=== PATIENT | male | born 1940 | race Caucasian/White ===

== ENCOUNTER → 2017-10-19 11:56 | Outpatient (CLI) | payer MEDICARE, SELFPAY ==
[2017-10-19 13:26] LABS: PSA,Total - Annual Screen 2.36 ng/mL (0.00-4.00)
== END ==
PROVIDERS: Family Provider Family Medicine; PCP Family Medicine; Visit Provider Urology
DX: Z12.5 Encounter for screening for malignant neoplasm of prostate (principal)
CPT/HCPCS: 36415; 84153; G0103

== ENCOUNTER → 2017-10-21 11:00 | Outpatient (CLI) | payer MEDICARE, SELFPAY ==
--- NOTE | 2017-10-21 11:02 | US_ITS ---
STUDY: RENAL ULTRASOUND - COMPLETE REASON FOR EXAM: Male, 76 years old. Microhematuria. TECHNIQUE: Ultrasound evaluation of the kidneys was performed with real-time and static alvarado-scale imaging. COMPARISON: None. FINDINGS: RIGHT KIDNEY: Normal location of the right kidney, which is normal in size. The right kidney measures 12.2 cm x 4.6 cm x 5.9 cm. There is a normal cortex of the right kidney. The renal cortex measures 1.9 cm. There is no right renal mass or cyst. There are no right renal calculi. There is no right hydronephrosis. DISTAL RIGHT URETER: There is non-visualization of the distal right ureter. There is no demonstrated right ureterovesical junction calculus. There is no demonstrated right ureteral jet. LEFT KIDNEY: Normal location of the left kidney, which is normal in size. The left kidney measures 12.0 cm x 4.7 cm x 5.8 cm. There is a normal cortex of the left kidney. The renal cortex measures 1.6 cm. There is no left renal mass or cyst. There are no left renal calculi. There is no left hydronephrosis. DISTAL LEFT URETER: There is non-visualization of the distal left ureter. There is no demonstrated left ureterovesical junction calculus. There is no demonstrated left ureteral jet. BLADDER: The distended urinary bladder has a volume of 71 ml. There is a normal wall thickness of the distended urinary bladder. There is no demonstrated mass within the urinary bladder. There are no demonstrated bladder calculi. Prostate volume measures 87.7 cc. US/Kidney and Bladder IMPRESSION: Normal ultrasound of the kidneys and urinary bladder. Electronically Signed: Kevan Melgoza MD at 12:25 EST Tel [phone], Service support ,
== END ==
PROVIDERS: Family Provider Family Medicine; PCP Family Medicine; Visit Provider Urology
DX: N40.0 Benign prostatic hyperplasia without lower urinary tract symptoms (principal); R31.29 Other microscopic hematuria
CPT/HCPCS: 76770

== ENCOUNTER → 2017-11-02 17:10 | Outpatient (CLI) | payer MEDICARE, SELFPAY ==
--- NOTE | 2017-11-02 17:13 | CT_ITS ---
STUDY: CT ABDOMEN AND PELVIS WITH CONTRAST REASON FOR EXAM: Male, 77 years old. RIGHT SIDED ABDOMINAL PAIN WRAPPING AROUND TO BACK RADIATION DOSAGE (If Supplied By Facility): CTDIvol = ( 17.02 ) mGy, DLP = ( 1030.21 ) mGycm TECHNIQUE: Transaxial images were obtained from the dome of the diaphragm to the symphysis pubis with oral contrast. 100 ml of Isovue 300 contrast was administered. Sagittal and coronal images were reconstructed. Individualized dose optimization techniques were used for this CT. COMPARISON: 08.27.15 FINDINGS: Degenerative findings of the hips. Loss of intervertebral disc height at L5-S1. Vacuum disc phenomenon at L5-S1. The visualized lung bases are unremarkable. The visualized portions of the heart are within normal limits. Normal liver. There are multiple gallstones. Normal spleen. Normal pancreas. Normal bilateral adrenal glands. Normal right kidney. Normal left kidney. Normal visualized stomach. Normal small intestine. Stool throughout the colon. There is non-visualization of the appendix. There are calcifications of the abdominal aorta and vascular structures. This is consistent for atherosclerotic disease. There is no abdominal aortic aneurysm. Normal inferior vena cava. Subcentimeter mesenteric lymph nodes. Normal urinary bladder. There is enlargement of the prostate gland. There are bilateral inguinal hernias containing fat. There is no bowel involvement. There is no incarceration. There is no findings suggesting that this is causing a bowel obstruction. There are degenerative changes of the osseous structures. There are bilateral pars articularis defects at L5-S1. There is a Grade 1 anterolisthesis of L5 on S1. CT/Abdomen/Pelvis WITH Contrast IMPRESSION: Cholelithiasis. Constipation Other findings as above. Electronically Signed: Cruzito Curry MD at 18:31 EST , Service support ,
[2017-11-02 17:21] LABS: CREATININE FINGERSTICK 0.8 mg/dL (0.70-1.30); EGFR FINGERSTICK > 60.0000 mL/min (>60)
== END ==
PROVIDERS: Family Provider Family Medicine; PCP Family Medicine; Visit Provider Family Medicine
DX: R10.9 Unspecified abdominal pain (principal)
CPT/HCPCS: 74177; Q9967

== ENCOUNTER → 2018-10-26 06:44 | Outpatient (CLI) | payer MEDICARE, SELFPAY ==
--- NOTE | 2018-10-26 09:28 | STRESSREP ---
Stress Test Report Pharmacologic myocardial perfusion stress test. 78-year-old male with a history of dyspnea on exertion. Medications: Lisinopril, amlodipine, omeprazole, nadolol. Stress protocol: Resting EKG demonstrates normal sinus rhythm with a rate of 60 bpm normal intervals are noted resting blood pressure 122/78 mmHg. 0.4 mg of regadenoson was infused per usual protocol followed by rapid intravenous saline flush injection continuous EKG monitoring was performed. The maximum heart rate attained was 81 bpm which was 56% maximum predicted heart rate the maximum workload was 1 metabolic equivalent. At rest there were no ST or T wave changes noted suggest abnormal flow reserve at peak infusion nonspecific ST-T wave changes were noted we did not meet the criteria for abnormal flow reserve. Myocardial perfusion protocol per 14.3 mCi of technetium 99m sestamibi was injected at rest. 0.4 mg of regadenoson was infused per usual protocol peak infusion 44.1 mCi of technetium 99m sestamibi was injected stress images were obtained stress and rest images were reconstructed and compared in the short axis vertical and horizontal long axis. Gated images were also obtained next Perfusion SPECT analysis: Review of the stress images demonstrate normal uptake of tracer noted in all areas of the myocardium. The resting images similarly demonstrate normal uptake of tracer noted in all areas of the myocardium. No areas of reversibility are noted suggest ischemia. No previous infarct is noted. Gated SPECT analysis: The gated ejection fraction is noted to be 66%. Conclusion: Normal pharmacologic myocardial perfusion stress test. Preserved ejection fraction.
== END ==
DX: R06.09 Other forms of dyspnea (principal)
CPT/HCPCS: 78452; 93017; A9500; A4216; J2785

== ENCOUNTER 2019-02-19 23:56 | Emergency (ER) | payer MEDICARE, SELFPAY ==
[2019-02-19 23:57] VITALS: BP 165/82; PULSE 63; RESP 16; TEMP 36.6; O2SAT 99
[2019-02-20 00:04] VITALS: RESP 16
--- NOTE | 2019-02-20 01:06 | ED.VIS.GEN ---
History of Present Illness Chief Complaint: Lower Extremity Injury Informant: Patient Narrative: Stated he has had persistent swelling in his right lower extremity since his right hip was replaced 2 weeks ago. He is concerned he might have a blood clot. He states that his swelling is from his hip down to his feet. He is noticed his foot has become more swollen. He has had some postoperative pain but is getting better. No significant new pains. He is noticed a little bit of redness in his whole leg and is concerned he might have a new blood clot. He has had one remotely in his left lower extremity. He is only on a baby aspirin postop. No fevers or chills or other symptoms. Comes in for further evaluation of possible blood clot. No chest pain or shortness of breath. Past Medical History - Allergies and Home Meds Allergies/Adverse Reactions: Allergies tetracycline [Tetracycline] Allergy (Verified 02/20/19 00:04) Hives tramadol Allergy (Verified 02/20/19 00:07) Hives Primary Care Physician: Zoie Whitt DO [Primary Care Provider] - Prior records reviewed: Yes Past Medical History: - - Reviewed Surgical History: - - Viewed Smoking Status: Never smoker Alcohol: None Drugs: None Review of Systems General: Denies: Chills, Fever, Sweats Eyes: Denies: Visual changes - bilaterally, Diplopia ENT: Denies: Rhinorrhea, Sore throat Cardiovascular: Denies: Chest pain, Palpitations Respiratory: Denies: Dyspnea, Cough, Dyspnea on exertion Gastrointestinal: Denies: Abdominal pain, Nausea, Vomiting, Diarrhea, Melena, Hematochezia Genitourinary: Denies: Dysuria, Hematuria, Frequency Musculoskeletal: Reports: Swelling, Extremity Pain, - - See HPI. Denies: Back pain Skin: Denies: Rash, Wounds Neurological: Denies: Headache, Weakness, Numbness Physical Exam Vital Signs/Narrative: Vital Signs Temp Pulse Resp BP Pulse Ox 02/20/19 00:04 16 02/19/19 23:57 97.9 F 63 16 165/82 H 99 General: Well nourished, Well developed, No Acute Distress Head: Normocephalic, Atraumatic Eyes: Perrl, EOMI ENT: Moist mucous membranes, No rhinorrhea Neck: Supple, Nontender Cardiovascular: Regular rate, Regular rhythm, No murmurs Respiratory: No distress, CTA bilaterally, Chest nontender Abdomen: Soft, Nontender, Nondistended, Normal bowel sounds Back: Nontender, Normal Inspection Extremities: Edema, - - Has mild diffuse edema of his whole right lower extremity. His incision looks clean clean dry and intact. He has very mild warmth and redness. This is subtle. No cellulitis. Normal pulses to his feet.. Negative for: Nontender, No edema Skin: Normal color, No rash Neurological: Alert, Oriented x3, Cranial nerves II-XII grossly intact, Normal Strength, Normal Sensation Psychological: Normal affect, Normal Mood Diagnostic/Tx/Re-eval - Medical Decision Making I am concerned patient might have a recurrent DVT postop. I told the patient we can hold him in the ER and do a DVT scan in the morning. He would like to be discharged and follow-up tomorrow for DVT scan. I will order this. I discussed benefits and risk of using Lovenox. Due to the fact that he has a moderate risk for DVT we elected to do at 1 dose of Lovenox. He will follow-up and return if he does have a positive clot. I do not think he is has a PE at this time. I do not think he has infection. ED Disposition - Plan for ED Patient: Disposition: Home or Assisted Living Diagnosis: Swelling of lower extremity Instructions: Understanding Deep Vein Thrombosis Referrals: Zoie Whitt DO [Primary Care Provider] -
[2019-02-20] MEDS: Enoxaparin 100 MG/ML Syringe SC (01:19)
[2019-02-20 01:20] VITALS: BP 161/78; PULSE 60; RESP 16; O2SAT 98
== END 2019-02-20 01:28 | disposition home or self-care (01) ==
PROVIDERS: Emergency Provider Emergency Medicine
DX: M79.89 Other specified soft tissue disorders (principal); Z86.718 Personal history of other venous thrombosis and embolism; Z96.641 Presence of right artificial hip joint; Z79.82 Long term (current) use of aspirin; Z79.899 Other long term (current) drug therapy
CPT/HCPCS: 96372; 99282

== ENCOUNTER → 2019-02-20 | Outpatient (CLI) | payer MEDICARE, SELFPAY ==
--- NOTE | 2019-02-20 14:25 | VDLE_ITS ---
Reason For Study: Swelling RIGHT GSV is normal. CFV is compressible, spontaneous, phasic, competent and demonstrates normal augmentation. FV is compressible, spontaneous, phasic, competent and demonstrates normal augmentation. POP V is compressible, spontaneous, phasic, competent and demonstrates normal augmentation. T/P Trunk is compressible. PTV is compressible. RT PerV is compressible. Procedure Exam performed in department. A preliminary report was called and/or faxed to Dr. Whitt. Interpretation Summary Deep veins of the right lower extremity are patent and compressible segmentally. There is no evidence of right lower extremity deep vein thrombosis. Valvular competence appears intact within the proximal deep venous system on the right . The right greater saphenous vein appears patent and compressible segmentally. Ordering Physician: Prakash Aldana Referring Physician: Zoie Whitt Performed By: Katelyn Kumar, CARMENZA, RVT
== END | disposition home or self-care (01) ==
LOC: CVS 14:23
PROVIDERS: Referring Provider Emergency Medicine; Visit Provider Emergency Medicine
DX: M79.89 Other specified soft tissue disorders (principal)
CPT/HCPCS: 93971

== ENCOUNTER → 2022-04-14 | Outpatient (CLI) | payer MEDICARE, SELFPAY ==
[2022-04-14 12:21] LABS: Hematocrit 42.1 % (40-54); Mean Corp Hgb Conc 33.3 g/dL (32-36); Mean Corpuscular Hgb 29.4 pg (27.0-32.0); Mean Corpuscular Volume 88.4 fL (80-94); Mean Platelet Vol. 10.8 fl (6.2-12.0); Platelet Count 181 K/mm3 (150-450); RBC Distribution Width CV 14.1 % (11.6-14.6); RBC Distribution Width SD 45.1 fl (35.1-43.9); Red Blood Count 4.76 M/mm3 (4.6-6.2); White Blood Count 7.2 K/mm3 (4.4-11.0)
[2022-04-14 12:57] LABS: AST(SGOT) 22 U/L (15-37); Alanine Aminotransfer ALT/SGPT 28 U/L (16-61); Albumin, Serum 3.8 g/dL (3.2-5.0); Alkaline Phosphatase 83 U/L (45-117); Anion Gap 5 (5-15); BUN 21 mg/dL (7-18); BUN/Creat Ratio 20.2 RATIO (10-20); Calcium,Total 9.3 mg/dL (8.5-10.1); Chloride 110 mmol/L (98-107); Cholesterol 182 mg/dL (200); Creatinine, Serum 1.04 mg/dL (0.70-1.30); EST Glomerular Filtration Rate 73 mL/min (>60); Est Glom Filt Rate - Afr Amer 88 mL/min (>60); Glucose 147 mg/dL (74-106); High Density Lipoprotein 43 mg/dL; PSA,Total - Annual Screen 2.39 ng/mL (0.00-4.00); Protein, Total 7.8 g/dL (6.4-8.2); Sodium Level 140 mmol/L (136-145); Thyroid Stim Hormone (TSH) 1.44 uIU/mL (0.358-3.74); Triglycerides 283 mg/dL; Very Low Density Lipoprotein 57 mg/dL (5-40)
[2022-04-14 13:09] LABS: Hemoglobin A1c 7.2 % (3.8-5.6)
== END | disposition home or self-care (01) ==
LOC: LAB 12:06
DX: E11.9 Type 2 diabetes mellitus without complications (principal); Z12.5 Encounter for screening for malignant neoplasm of prostate; I10 Essential (primary) hypertension
CPT/HCPCS: 36415; 80053; 80061; 83036; 84153; 84443; 85027; G0103

== ENCOUNTER → 2022-09-25 | Outpatient (CLI) | payer MEDICARE, SELFPAY ==
[2022-09-25 16:16] LABS: Hematocrit 41.3 % (40-54); Hemoglobin 13.6 g/dL (13.0-16.5); Mean Corp Hgb Conc 32.9 g/dL (32-36); Mean Corpuscular Hgb 29.6 pg (27.0-32.0); Mean Corpuscular Volume 89.8 fL (80-94); Mean Platelet Vol. 10.9 fl (6.2-12.0); Platelet Count 178 K/mm3 (150-450); RBC Distribution Width CV 13.7 % (11.6-14.6); RBC Distribution Width SD 44.4 fl (35.1-43.9)
[2022-09-25 17:10] LABS: ALB/GLOB Ratio 1.1 RATIO (0.9-2.4); AST(SGOT) 18 U/L (15-37); Alanine Aminotransfer ALT/SGPT 31 U/L (16-61); Albumin, Serum 3.8 g/dL (3.2-5.0); Alkaline Phosphatase 82 U/L (45-117); Anion Gap 4 (5-15); BUN 17 mg/dL (7-18); BUN/Creat Ratio 16.2 RATIO (10-20); Calcium,Total 9.4 mg/dL (8.5-10.1); Chloride 107 mmol/L (98-107); Cholesterol 201 mg/dL (200); Creatinine, Serum 1.05 mg/dL (0.70-1.30); EST Glomerular Filtration Rate 72 mL/min (>60); Est Glom Filt Rate - Afr Amer 87 mL/min (>60); Globulin 3.6 g/dL (2.2-4.2); Glucose 142 mg/dL (74-106); High Density Lipoprotein 42 mg/dL; Potassium 4.4 mmol/L (3.5-5.1); Protein, Total 7.4 g/dL (6.4-8.2); Sodium Level 138 mmol/L (136-145); Thyroid Stim Hormone (TSH) 1.64 uIU/mL (0.358-3.74); Triglycerides 453 mg/dL
== END | disposition home or self-care (01) ==
DX: Z79.899 Other long term (current) drug therapy (principal); E11.9 Type 2 diabetes mellitus without complications; E78.1 Pure hyperglyceridemia; I10 Essential (primary) hypertension; K21.9 Gastro-esophageal reflux disease without esophagitis
CPT/HCPCS: 36415; 80053; 80061; 84443; 85027

== ENCOUNTER → 2023-05-17 | Outpatient (CLI) | payer MEDICARE, SELFPAY ==
[2023-05-17 10:24] LABS: Hematocrit 40.2 % (40-54); Hemoglobin 13.3 g/dL (13.0-16.5); Mean Corp Hgb Conc 33.1 g/dL (32-36); Mean Corpuscular Hgb 29.8 pg (27.0-32.0); Mean Corpuscular Volume 89.9 fL (80-94); Platelet Count 177 K/mm3 (150-450); RBC Distribution Width CV 13.3 % (11.6-14.6); RBC Distribution Width SD 43.9 fl (35.1-43.9); Red Blood Count 4.47 M/mm3 (4.6-6.2); White Blood Count 7.7 K/mm3 (4.4-11.0)
[2023-05-17 10:42] LABS: AST(SGOT) 14 U/L (15-37); Alanine Aminotransfer ALT/SGPT 23 U/L (16-61); Albumin, Serum 3.7 g/dL (3.2-5.0); Alkaline Phosphatase 78 U/L (45-117); Anion Gap 6 (5-15); BUN 19 mg/dL (7-18); Calcium,Total 9.1 mg/dL (8.5-10.1); Chloride 107 mmol/L (98-107); Cholesterol 145 mg/dL (200); EST Glomerular Filtration Rate 86 mL/min (>60); Est Glom Filt Rate - Afr Amer 104 mL/min (>60); Ferritin 106 ng/mL (26-388); Free T3 2.3 pg/mL (2.18-3.98); Globulin 3.6 g/dL (2.2-4.2); Glucose 153 mg/dL (74-106); High Density Lipoprotein 46 mg/dL; Iron 81 ug/dL (65-175); Potassium 4.1 mmol/L (3.5-5.1); Protein, Total 7.3 g/dL (6.4-8.2); Sodium Level 140 mmol/L (136-145); Triglycerides 314 mg/dL; Very Low Density Lipoprotein 63 mg/dL (5-40)
[2023-05-17 12:40] LABS: Vitamin B12 279 pg/mL (211-911); Vitamin D,25 Hydroxy 27.5 ng/mL
== END | disposition home or self-care (01) ==
LOC: LAB 09:32
DX: E11.9 Type 2 diabetes mellitus without complications (principal); I10 Essential (primary) hypertension; E78.1 Pure hyperglyceridemia; K21.9 Gastro-esophageal reflux disease without esophagitis; R53.83 Other fatigue
CPT/HCPCS: 36415; 80053; 80061; 82306; 82607; 82728; 83540; 84403; 84439; 84443; 84481; 85027

== ENCOUNTER → 2023-07-28 | Outpatient (CLI) | payer MEDICARE, SELFPAY ==
[2023-07-28 10:22] LABS: Hematocrit 40.7 % (40-54); Hemoglobin 13.6 g/dL (13.0-16.5); Mean Corp Hgb Conc 33.4 g/dL (32-36); Mean Corpuscular Hgb 30.1 pg (27.0-32.0); Mean Platelet Vol. 11.3 fl (6.2-12.0); Platelet Count 177 K/mm3 (150-450); RBC Distribution Width CV 13.5 % (11.6-14.6); RBC Distribution Width SD 44.5 fl (35.1-43.9); Red Blood Count 4.52 M/mm3 (4.6-6.2)
[2023-07-28 10:44] LABS: Hemoglobin A1c 7.2 % (3.8-5.6)
[2023-07-28 11:11] LABS: Vitamin D,25 Hydroxy 32.7 ng/mL
[2023-07-28 11:19] LABS: AST(SGOT) 17 U/L (15-37); Alanine Aminotransfer ALT/SGPT 22 U/L (16-61); Albumin, Serum 3.6 g/dL (3.2-5.0); Alkaline Phosphatase 76 U/L (45-117); Anion Gap 4 (5-15); BUN 17 mg/dL (7-18); BUN/Creat Ratio 18.7 RATIO (10-20); Calcium,Total 9.1 mg/dL (8.5-10.1); Chloride 109 mmol/L (98-107); Cholesterol 131 mg/dL (200); Creatinine, Serum 0.91 mg/dL (0.70-1.30); EST Glomerular Filtration Rate 85 mL/min (>60); Est Glom Filt Rate - Afr Amer 103 mL/min (>60); Globulin 3.5 g/dL (2.2-4.2); Glucose 155 mg/dL (74-106); High Density Lipoprotein 48 mg/dL; PSA,Total - Annual Screen 1.88 ng/mL (0.00-4.00); Potassium 3.9 mmol/L (3.5-5.1); Protein, Total 7.1 g/dL (6.4-8.2); Sodium Level 138 mmol/L (136-145); Thyroid Stim Hormone (TSH) 2.24 uIU/mL (0.358-3.74); Triglycerides 205 mg/dL; Very Low Density Lipoprotein 41 mg/dL (5-40)
== END | disposition home or self-care (01) ==
LOC: LAB 09:20
DX: E11.9 Type 2 diabetes mellitus without complications (principal); I10 Essential (primary) hypertension; E78.1 Pure hyperglyceridemia; Z12.5 Encounter for screening for malignant neoplasm of prostate; E55.9 Vitamin D deficiency, unspecified
CPT/HCPCS: 36415; 80053; 80061; 82306; 83036; 84153; 84403; 84443; 85027; G0103

== ENCOUNTER 2023-08-15 21:27 | Emergency (ER) | payer MEDICARE, SELFPAY ==
[2023-08-15 21:29] VITALS: BP 168/86; PULSE 61; RESP 18; TEMP 36.2; O2SAT 99; BMI 26.2
--- NOTE | 2023-08-15 21:38 | EDS_ITS ---
HPI History of Present Illness Chief Complaint: Complaint Informant: patient and spouse/S.O. Narrative Narrative: Patient presents with hematuria. Patient states that he had a bit of blood in his urine this morning. This evening it was more red. No real clots. No fevers chills. He might have a little bit of discomfort but really no pain. It sounds like he does have a history of BPH. He is on finasteride, tamsulosin or possibly even both. He sees Dr. Elias. He states he does go frequently. He will have to wait a while before he can urinate. His stream is much softer than it used to be. He will commonly have to urinate shortly after going. He thinks this has been getting a little worse recently. But he feels like he empties fully. No flank pain. No history of kidney stones. PFSH PFSH Home Medications finasteride 5 mg tablet 5 mg PO DAILY 10/18/13 [History Last Taken Unknown] lisinopril 20 mg tablet 20 mg PO DAILY 09/14/14 [History Last Taken Unknown] nadolol 80 mg tablet (Corgard) 80 mg PO DAILY 09/14/14 [History Last Taken Unknown] omeprazole 20 mg capsule,delayed release 20 mg PO DAILY 09/14/14 [History Last Taken Unknown] amlodipine 5 mg tablet 5 mg PO DAILY 02/20/19 [History Last Taken Unknown] aspirin 81 mg tablet,delayed release (Aspir-) 81 mg PO DAILY 02/20/19 [History Last Taken Unknown] tamsulosin 0.4 mg capsule 0.4 mg PO DAILY 02/20/19 [History Last Taken Unknown] cephalexin 500 mg capsule 500 mg PO Q12 #14 CAPSULES 08/15/23 [Rx Last Taken Unknown] Allergy/AdvReac Type Severity Reaction Status Date / Time fenofibrate [From Tricor] Allergy Rash Verified 08/15/23 21:31 hydrochlorothiazide Allergy Rash Verified 08/15/23 21:31 niacin Allergy Rash Verified 08/15/23 21:31 tetracycline [Tetracycline] Allergy Hives Verified 08/15/23 21:28 tramadol Allergy Hives Verified 08/15/23 21:28 ciprofloxacin [From Cipro] AdvReac Nausea/Vom/ Verified 08/15/23 21:31 Diarrhea Social History Smoking Status: Never smoker ROS ROS ED Constitutional Constitutional ED: Denies chills or fever(s) ENT ENT ED: Denies rhinorrhea Cardiovascular Cardiovascular: Denies chest pain or palpitations Respiratory/Chest Respiratory/Chest: Denies cough or dyspnea Gastrointestinal Gastrointestinal: Denies diarrhea, nausea or vomiting Genitourinary Genitourinary ED: Reports hematuria and urinary frequency; Denies dysuria Musculoskeletal Musculoskeletal: Denies back pain Integumentary Denies rash Neurologic Neurologic: Denies paresthesias or weakness Endocrine Endocrinology: Denies polydipsia or polyuria Hematologic/Lymphatic Hematologic/Lymphatic: Denies easy bleeding or easy bruising Allergic/Immunologic Allergic/Immunologic ED: Denies urticaria EXAM Physical Exam Narrative Exam Narrative: General: Patient sitting comfortably in the bed no acute distress HEENT shows no pallor petechiae. Mucous membranes are moist. Neck is supple. Heart is regular. No murmur. Lungs are clear. Saturations are normal at 99% on room air showing no hypoxia. Abdomen is actually soft nontender. I cannot definitely say I feel an enlarged bladder. No notable suprapubic tenderness but he does state he feels a little pressure. Back shows no flank/CVA tenderness. No rashes. Extremities show no notable edema. Skin does not show pallor petechiae or purpura. Const Vital Signs: 08/15/23 21:29 Temperature 97.1 F L Temperature Source Temporal Pulse Rate 61 Respiratory Rate 18 Blood Pressure 168/86 H Blood Pressure Mean 113 Pulse Ox 99 MDM MDM MDM Narrative Medical decision making narrative: Patient CBC shows normal white count hemoglobin and platelets. Patient's electrolytes showed mild elevation in BUN but normal creatinine. He does have high glucose at 290. We did not have the information initially but I find out he is on metformin. But he only takes 500 mg once a day. He is not sure if he took it at His urine came back showing a large number of red cells and glucose. But no sign of infection. Grossly this year urine was very red-tinged but I saw no clots. I discussed options with the patient. As long as he is urinating and not having obstruction I think he can go home. Postvoid residual was 210 cc. This is somewhat high but he is still passing urine well. We are doing a CAT scan since he does not have significant distention to cause mucosal tears and bleeding. As long as we do not see significant abnormalities that needs acute treatment I still think he can follow-up with his urologist. CAT scan is pending at this time. With his hematuria without any clear cause at this time, we will consider placing on antibiotics until he sees his urologist and I will send urine for a culture. Lab Data Attestation: I reviewed the patient's lab results. Labs: Laboratory Results - last 24 hr 08/15/23 08/15/23 21:52 21:58 WBC 8.2 RBC 4.73 Hgb 13.9 Hct 42.2 MCV 89.2 MCH 29.4 MCHC 32.9 RDW Std Deviation 43.2 RDW Coeff of Gaye 13.2 Plt Count 191 MPV 10.5 Immature Gran % (Auto) 0.600 Neut % (Auto) 50.3 Lymph % (Auto) 34.5 [place] % (Auto) 8.6 Eos % (Auto) 5.0 Baso % (Auto) 1.0 Absolute Neuts (auto) 4.1 Absolute Lymphs (auto) 2.82 Nucleated RBC % 0 Sodium 139 Potassium 3.9 Chloride 107 Carbon Dioxide 29.0 Anion Gap 3 L BUN 21 H Creatinine 1.01 Estim Creat Clear Calc 61.09 Est GFR (MDRD) Af Amer 91 Est GFR (MDRD) Non-Af 75 BUN/Creatinine Ratio 20.8 H Glucose 290 H Calcium 9.9 Urine Color Red Urine Clarity Turbid Urine pH 7.0 Ur Specific Elizabeth 1.015 Urine Protein 500 H Urine Glucose (UA) 1000 H Urine Ketones 5 H Urine Occult Blood 250 H Urine Nitrite Negative Urine Bilirubin Negative Urine Urobilinogen Normal Ur Leukocyte Esterase 100 H Urine RBC > 100 SEEN Urine WBC 0 SEEN Ur Squamous Epith Cells 0 SEEN Urine Bacteria 0 SEEN Urine Mucus 0 SEEN Discharge Plan Triage Chief Complaint: Complaint ED Provider: Nickolas Keene Dx/Rx/DC Orders Clinical Impression: Hematuria, Hyperglycemia Instructions: ED Hematuria Prescriptions: New cephalexin [cephalexin] 500 mg capsule 500 mg PO Q12 Qty: 14 0RF No Action finasteride 5 MG tablet 5 mg PO DAILY nadolol [Corgard] 80 MG tablet 80 mg PO DAILY lisinopril 20 MG tablet 20 mg PO DAILY omeprazole 20 MG capsule 20 mg PO DAILY amlodipine 5 MG tablet 5 mg PO DAILY aspirin [Aspir-81] 81 MG tablet,delayed release (DR/EC) 81 mg PO DAILY tamsulosin 0.4 MG capsule 0.4 mg PO DAILY Primary Care Provider: Zoie Whitt Referrals: Marques Elias MD [Med Staff - Active Staff] - As soon as possible (Call in the morning for an appointment as soon as possible.) Zoie Whitt, [Primary Care Provider] - Disposition Disposition: Home, Self Care
[2023-08-15 22:00] LABS: Absolute Lymphocyte Count 2.82 X10^3/uL (0.83-4.51); Absolute Neutrophil Count 4.1 X10^3/uL (2.0-7.7); Basophil# 0.08 X10^3/uL; Eosinophil# 0.41 X10^3/uL; Hematocrit 42.2 % (40-54); Hemoglobin 13.9 g/dL (13.0-16.5); Lymphocyte # 2.82 X10^3/ul (0.83-4.51); Lymphocyte % 34.5 % (19-41); Mean Corp Hgb Conc 32.9 g/dL (32-36); Mean Corpuscular Hgb 29.4 pg (27.0-32.0); Mean Corpuscular Volume 89.2 fL (80-94); Mean Platelet Vol. 10.5 fl (6.2-12.0); Monocyte% 8.6 % (0-10); NRBC Flagged by Analyzer 0 % (0-5); Neutrophil # 4.12 X10^3/uL (2.7-7.7); Neutrophil % 50.3 % (47-70); Platelet Count 191 K/mm3 (150-450); RBC Distribution Width CV 13.2 % (11.6-14.6); RBC Distribution Width SD 43.2 fl (35.1-43.9); Red Blood Count 4.73 M/mm3 (4.6-6.2); White Blood Count 8.2 K/mm3 (4.4-11.0)
[2023-08-15 22:06] LABS: Bacteria 0 SEEN /hpf (None Seen); Mucous, Urine 0 SEEN /hpf (<or=2+); Squamous Epithelial Cells - UA 0 SEEN /hpf (0-5); White Blood Cells 0 SEEN /hpf (0-5)
[2023-08-15 22:07] LABS: Color, Urine Red (Yellow); Glucose, Dipstick 1000 mg/dl (Normal); Ketone-Dipstick 5 mg/dl (Negative); Leukocyte Esterase-Dipstick 100 /ul (Negative); Nitrite-Dipstick Negative (Negative); Occult Blood-Urine 250 /ul (Negative); Protein-Dipstick 500 mg/dl (Negative); Specific Gravity, Urine 1.015 (1.002-1.030); Urine Bilirubin Dipstick Negative (Negative); Urine Clarity Turbid (Clear); Urine Urobilinogen Normal (Normal)
[2023-08-15 22:16] LABS: Red Blood Cells-Urine > 100 SEEN /hpf (0-5)
[2023-08-15 22:18] LABS: Anion Gap 3 (5-15); BUN 21 mg/dL (7-18); BUN/Creat Ratio 20.8 RATIO (10-20); Calcium,Total 9.9 mg/dL (8.5-10.1); Chloride 107 mmol/L (98-107); Creatinine, Serum 1.01 mg/dL (0.70-1.30); EST Glomerular Filtration Rate 75 mL/min (>60); Est Glom Filt Rate - Afr Amer 91 mL/min (>60); Estimated Creatinine Clearance 61.09 ml/min; Glucose 290 mg/dL (74-106); Potassium 3.9 mmol/L (3.5-5.1); Sodium Level 139 mmol/L (136-145)
[2023-08-15] MEDS: 0.9% Normal Saline (1000mL) 1,000 ML 999 ML IV (23:10)
--- NOTE | 2023-08-15 23:33 | CT_ITS ---
EXAM: CT ABDOMEN AND PELVIS WITH INTRAVENOUS CONTRAST CLINICAL INDICATION: pain, hematuria TECHNIQUE: Helically acquired images were obtained of the abdomen and pelvis with intravenous contrast. This CT exam was performed using one or more of the following dose reduction techniques: automated exposure control, adjustment of the mA and/or kV according to patient size, and/or use of iterative reconstruction technique. CONTRAST: IV 100mL Isovue-370 RADIATION DOSE: CTDIvol = 18.5 mGy, DLP = 1917.21 mGy-cm. COMPARISON: November 02, 2017 there was a small stone in the mid right kidney at that time. FINDINGS: LOWER THORAX: Unremarkable. Lung bases are clear. No cardiomegaly. No significant pericardial effusion. ABDOMEN: LIVER: Unremarkable. Homogeneous. No focal mass. GALLBLADDER AND BILE DUCTS: Gallbladder filled with or partially contracted around stones, it is only 2.8 cm AP. No gallbladder distention or wall edema. No intra- or extrahepatic biliary ductal dilation. PANCREAS: Unremarkable. No focal cystic or solid mass. SPLEEN: Unremarkable. Normal size without focal cystic or solid mass. ADRENALS: Unremarkable. No nodules. KIDNEYS AND URETERS: There is mild right hydroureteronephrosis to the level of the bladder. Multiple hypodense foci in the bladder appear to be numerous small stones including suspected stone of 2.9 mm in the distal right UVJ. These are new from prior exam. And there is mildly dense dependent irregular material presumably due to hematuria dependently in the bladder. The same small nonobstructing 2.7 mm stone is noted in the right kidney compared to 2018. Right renal pelvis 2.8 cm, mid right ureter 1.2 cm. Normal renal enhancement. Small left renal cyst again noted. There is contrast excretion and roughly 50% opacification of the right renal pelvis on delayed phase exam at 4 minutes delay. There is contrast throughout the left ureter. Normal renal size and position. STOMACH AND BOWEL: Moderate stool in most of the colon including most of the rectosigmoid. Minimal stool in the rectum. Moderate fluid and mild gas in the stomach. No dilated small bowel loops. No focal inflammatory change. PELVIS: APPENDIX: No evidence of acute appendicitis. BLADDER: Mildly thick-walled urinary bladder despite moderate distention. Suggestion of a small hypodense filling defect surrounded by hyperdense material in the urinary bladder. REPRODUCTIVE: Prostatomegaly, 6.6 cm transverse. ABDOMEN and PELVIS: INTRAPERITONEAL SPACE: Unremarkable. No ascites or other fluid collection. No free air. BONES/JOINTS: Degenerative spine changes including mild grade 1 anterolisthesis of L5 with respect to S1 with bilateral L5 pars defects and marked disc space narrowing, similar to 2018. No rain spinal stenosis. Right hip prosthesis. No suspicious lytic or blastic abnormality. SOFT TISSUES: Mild fat-containing inguinal hernias. Small but multiple inguinal lymph nodes. VASCULATURE: Moderate atherosclerotic calcification of aortoiliac vessels and calcifications at the origins of great vessels without evidence of high-grade arterial stenosis. Abdominal aorta is non-dilated. LYMPH NODES: See above. CT/Abdomen/Pelvis W IV Cont ONLY IMPRESSION: 1. Mild-moderate right hydroureteronephrosis. Mixed density complex material layering dependently in the urinary bladder, possibly including stone at the distal right UVJ, and multiple additional small stones or thick irregular very hyperdense calcific material in the urinary bladder. With superimposed left hyperdense typical hematuria in the bladder. Complex bladder contents, unenhanced exam was not performed. Cannot exclude underlying neoplasm.There was no calcific material in the bladder in 2018. Consider cystoscopy. 2. Marked prostatomegaly with impression on the bladder base. 3. Similar solitary nonobstructing right intrarenal stone compared to 2018. 4. Moderate stool in most of the colon. 5. Cholelithiasis, gallstones filling the partially contracted gallbladder. No inflammatory changes of the gallbladder. 6. Mild fat-containing inguinal hernias, stable. Stable minimally prominent inguinal nodes. Electronically Signed: Samantha Calderon MD at 1:45 EST ,
[2023-08-16] MEDS: Cephalexin 250 MG Capsule 500 MG PO (02:29)
== END 2023-08-16 02:35 | disposition home or self-care (01) ==
PROVIDERS: Emergency Provider Emergency Medicine; Visit Provider Emergency Medicine
DX: R31.9 Hematuria, unspecified (principal); R73.9 Hyperglycemia, unspecified; N13.30 Unspecified hydronephrosis; N21.0 Calculus in bladder; N20.1 Calculus of ureter
CPT/HCPCS: 74177; 80048; 81001; 85025; 87086; 96360; 96361; 99283; J7030; Q9967; A4216

== ENCOUNTER → 2023-08-23 | Outpatient (CLI) | payer MEDICARE, SELFPAY ==
[2023-08-23 10:52] LABS: PSA,Total- Diagnostic 1.53 ng/mL (0.0-4.0)
== END | disposition home or self-care (01) ==
LOC: LAB 09:51
PROVIDERS: Referring Provider Urology; Visit Provider Urology
DX: N40.1 Benign prostatic hyperplasia with lower urinary tract symptoms (principal)
CPT/HCPCS: 36415; 84153

== ENCOUNTER 2023-09-24 12:15 | Observation (INO) | payer MEDICARE, SELFPAY ==
--- NOTE | 2023-09-14 10:04 | EKG12_ITS ---
Test Reason : PRE OP Blood Pressure : / mmHG Vent. Rate : 063 BPM Atrial Rate : 063 BPM P-R Int : 164 ms QRS Dur : 094 ms QT Int : 398 ms P-R-T Axes : 027 -17 053 degrees QTc Int : 407 ms Normal sinus rhythm Normal ECG Confirmed by RIANA RAMIREZ, ELTON ([id number]), photo editor ABAD CHANEY ([id number]) on 09/15/2023 5:57:05 AM Referred By: Marques Elias Confirmed By:ELOTN MAYERS MD
[2023-09-24] VITALS (13 sets, daily range): BP systolic 115–141; BP diastolic 60–88; PULSE 16–72; RESP 16–18; TEMP 36.1–36.6; O2SAT 92–100; BMI 27.2; BMI 27.6
--- NOTE | 2023-09-24 | IMM_PTH ---
PATHOLOGY RESULTS PATIENT: ANITA TREJO LOC: [facility] U#:[id number] AGE/SX: 82/M ROOM: [id number] RE09/24/[address]: Dr. Marques Elias MD : [id number] BED: 1 DIS: 09/26/2023 SPEC #: [id number] RECD: 09/28/23 12:23 STATUS: ROLANDO REChanel #: [id number] ANGELICA: 09/24/23 00:[address]: Marques Elias DEPT: IMMUNOHISTOCHEMISTRY RECD BY: Yoanna Anders ENTERED: 09/28/23 12:25 SP TYPE: IMMUNO OTHR DR: Dr. Zoie Whitt, DO Tissues: Urinary bladder, NOS Procedures: CD31 (add) CK5-6 (add) CK7 (add) KI-67 (add) P53 (add) 34BE12 (add) FACTOR VIII (add) GATA3 (add) P40 (add) PSAP (add) CK7 (initial) S-100 (add) PHYSICIAN & [address] [address] SPECIMEN INFORMATION: Tissue Source: Prostate/bladder Clinical Info: Bladder tumor Specimen Number: [id number] #8 & 9 CPT code: 16624, 55985 x23 METHODOLOGY: Deparaffinized sections of prefer/formalin-fixed tissue or PAP/DQ stained slides are incubated with monoclonal/polyclonal antibodies/oligonucleotide probes. Localization is made via biotin free immunoperoxidase method. Appropriate controls are performed and reacted as expected. Results on target cell population are indicated in the following table: RESULTS: ANTIBODY / CLONE RESULT Block 8 GATA3 (L50-823) positive CK7 (OV-TL12/30) positive CK20 (KS20.8) positive 34BE12 (34BE12) positive CD31 (LASHAY/70A) negative Factor VIII (R Ag) negative S-100 (4C4.9) negative PSAP (PASE/4LJ) negative CK5-6 (D5 & 1684) positive P40 (BC28) positive P53 (DO-7) positive, intermediate pattern Ki-67 (30-9) positive, moderate Block 9 GATA3 (L50-823) positive CK7 (OV-TL12/30) positive CK20 (KS20.8) positive 34BE12 (34BE12) positive CD31 (LASHAY/70A) negative Factor VIII (R Ag) negative S-100 (4C4.9) negative PSAP (PASE/4LJ) negative CK5-6 (D5 & 1684) positive P40 (BC28) positive P53 (DO-7) positive, intermediate pattern Ki-67 (30-9) positive, moderate These tests were developed and their performance characteristics determined by [facility]. They may not have been cleared or approved by the U.S. Food and Drug Administration. The FDA has determined that such clearance or approval is not necessary. The above immunohistochemical/dualISH markers are ordered and reviewed by the Pathologist. 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 AM:anastasiia 09/29/2023
--- OUTSIDE RECORDS SUMMARY | 2023-09-24 11:37 | XMS RPT_ITS | CCD ---
Author Name Unknown Address [address] [place] [address] Organization [facility] Care Team Providers Care Cloth Tester Name Role Phone HutchinsonJaclynKarlene N Unavailable Jasper Karlene N Unavailable NATI, YAMILEX A. Unavailable Unavailable NATI, YAMILEX A. Unavailable Unavailable NATI, YAMILEX A. Unavailable Unavailable NATI, YAMILEX A. Unavailable Unavailable NATI, YAMILEX A. Unavailable Unavailable NATI, YAMILEX A. Unavailable Unavailable Eliu Hutchinsonssalphonse Montilla Unavailable ADAN ALVAREZ, DR CORRALES Primary Care Physician ([phone] ) No, Physician Primary Care Provider Unavailabl e LUBNA, PHYSICIAN Primary Care Unavailable ANN MARIE CORONADO Attending Unavailable [place], Physician Primary Care Provider Unavailbhavesh ARELLANO DO, DR CORRALES Primary Care Physician ([phone] ADAN ALVAREZ, DR. CORRALES Primary Care Unavailbhavesh ARELLANO DO, DR. CORRALES Attending Unavailbhavesh ARELLANO DO, DR. CORRALES Attending Unavailabl keesha ARELLANO DO, DR. CORRALES Primary Care Unavailbhavesh MONTENEGRO APRN-FISHING VESSEL DECKHAND, THERESE Attending Layne ARELLANO DO, DR. CORRALES Primary Care Unavailabl e ADAN ALVAREZ, DR. CORRALES Attending Unavailabl e ADAN ALVAREZ, DR. CORRALES Primary Care Unavailabl e Allergies Allergy Classification Reported Allergen(s) Allergy Type Date of Onset Reaction(s) Facility (6 sources) bee pollen; Translations: [POLLEN] allergy to substance 4 [facility] Work Phone: (8 sources) fenofibrate; Translations: [Fenofibrate] drug allergy 5 [facility] Work Phone: (12 sources) hydroCHLOROthia zide; Translations: [Hydrochlorothi azide] drug allergy 5 [facility] Work Phone: (12 sources) niacin; Translations: [Niacin] drug allergy 5 [facility] Work Phone: (6 sources) tetracycline; Translations: [TETRACYCLINE] drug allergy 4 [facility] Work Phone: (12 sources) traMADol; Translations: [Tramadol] drug allergy 5 [facility] Work Phone: (9 sources) Ciprofloxacin; Translations: [ciprofloxacin] Drug Allergy 1 [facility] (4 sources) Fenofibrate; Translations: [FENOFIBRATE MICRONIZED] Drug Allergy 6 [facility] (4 sources) Pollen; Translations: [POLLEN EXTRACTS] Propensity to adverse reactions to drug 1 [facility] (1 source) Amoxicillin / Clavulanate; Translations: [amoxicillin-cl avulanate] Drug Allergy 2 Nausea (finding) [facility] Medications Current Medications Medication Drug Class(es) Dates Sig (Normalized) Sig (Original) amLODIPine 5 mg oral tablet (11 sources) Dihydropyridine Calcium Channel Kyree Start: 07-01-2021 take 1 tablet by mouth once daily amLODIPine (NORVASC) 5 MG tablet amlodipine 5 mg tablet TAKE 1 TABLET BY MOUTH ONCE DAILY 0 07/01/2021 Active Completed/Discontinued Medications Medication Drug Class(es) Dates Sig (Normalized) Sig (Original) SOD PICOSULFATE-MAG OX-CIT ACD (3 sources) Calculi Dissolution Agent, Anti-coagulant Start: 04-22-2015 End: 04-23-2015 PREPOPIK 10-3.5-12 MG-GM-GM PACK use as per instructions SOD PICOSULFATE-MAG OX-CIT ACD [id number] Mahnaz Gilmore Problems Active Problems Problem Classification Problem Date Documented Da te Episodic/Chronic Abdominal hernia (5 sources) Hiatal hernia 03-16-2019 Episodic Calculus of urinary tract (5 sources) Kidney stone 04-01-2021 Episodic Diabetes mellitus with complications (1 source) Type 2 diabetes mellitus; Translations: [Type 2 diabetes mellitus with other diabetic ophthalmic complication] Chronic Diabetes mellitus without complication (8 sources) Diabetes mellitus; Translations: [Type 2 diabetes mellitus without complications] Onset: 1 03-07-2020 Chronic Disorders of lipid metabolism (9 sources) Hypertriglyceridemia; Translations: [Mixed hyperlipidemia] Onset: 1 03-16-2019 Chronic Diverticulosis and diverticulitis (5 sources) Diverticulosis of colon 03-16-2019 Chronic Esophageal disorders (5 sources) Gastroesophageal reflux disease 03-16-2019 Chronic Essential hypertension (9 sources) Hypertensive disorder; Translations: [Essential hypertension] Onset: 1 03-16-2019 Chronic Hyperplasia of prostate (5 sources) Benign prostatic hyperplasia 03-16-2019 Chronic Melanomas of skin (6 sources) Malignant melanoma; 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] 07-04-2021 Chronic Miscellaneous mental health disorders (5 sources) Chronic insomnia 03-16-2019 Chronic Osteoarthritis (7 sources) Osteoarthritis of hip; Translations: [Osteoarthritis] Onset: 7 04-01-2017 Chronic Other acquired deformities (3 sources) Contracture, unspecified hand; Translations: [Contracture, unspecified hand] Onset: 6 04-09-2016 Chronic Other congenital anomalies (2 sources) Spondylolisthesis; Translations: [Spondylolisthesis, site unspecified] Onset: 7 04-01-2017 Chronic Other ear and sense organ disorders (2 sources) Sensorineural hearing loss, bilateral; Translations: [Sensorineural hearing loss, bilateral] Onset: 2 Chronic Other ear and sense organ disorders (1 source) Sensorineural hearing loss, bilateral; Translations: [Sensorineural hearing loss, bilateral] Chronic Other ear and sense organ disorders (2 sources) Impacted cerumen, bilateral; Translations: [Impacted cerumen, bilateral] Onset: 2 Episodic Other ear and sense organ disorders (2 sources) Impacted cerumen of bilateral ears; Translations: [Impacted cerumen, bilateral] Episodic Other gastrointestinal disorders (5 sources) Mass of stomach 04-01-2021 Episodic Other liver diseases (5 sources) Steatosis of liver 03-16-2019 Chronic Other nervous system disorders (3 sources) Ulnar nerve entrapment; Translations: [Lesion of ulnar nerve, unspecified upper limb] Onset: 6 04-09-2016 Chronic Other non-epithelial cancer of skin (3 sources) Basal cell carcinoma of skin of left ear and external auricular canal; Translations: [Basal cell carcinoma of conchal bowl of ear] Onset: 2 Episodic Other non-traumatic joint disorders (3 sources) Arthritis of acromioclavicular joint; Translations: [Unspecified osteoarthritis, unspecified site] Onset: 4 07-05-2014 Chronic Otitis media and related conditions (5 sources) Tympanosclerosis, left ear; Translations: [Tympanosclerosis of left middle ear] Onset: 2 Episodic Phlebitis; thrombophlebitis and thromboembolism (5 sources) H/O: thrombosis 03-16-2019 Episodic Residual codes; unclassified (5 sources) Sleep apnea 03-16-2019 Chronic Unclassified (3 sources) Acute venous embolism and thrombosis of deep vessels of lower extremity; Translations: [Acute venous embolism and thrombosis of deep vessels of lower extremity] Onset: 5 09-26-2014 Unclassified (1 source) Unknown / UNK(Unknown) Onset: 7 Past or Other Problems Problem Classification Problem Date Documented Da te Episodic/Chronic Fracture of lower limb (3 sources) Closed bimalleolar fracture; Translations: [Displaced bimalleolar fracture of unspecified lower leg] 10-11-2013 Episodic Other connective tissue disease (7 sources) Impingement syndrome of shoulder region; Translations: [Shoulder pain] Onset: 06-26-2014 06-27-2014 Episodic Other connective tissue disease (7 sources) Hand pain; Translations: [Rotator cuff syndrome] Onset: 06-26-2014 04-09-2016 Episodic Other connective tissue disease (1 source) Rotator cuff syndrome; Translations: [Unspecified rotator cuff tear or rupture of unspecified shoulder, not specified as traumatic] Onset: 06-26-2014 06-27-2014 Episodic Other connective tissue disease (1 source) Biceps tendinitis; Translations: [Bicipital tenosynovitis] Onset: 06-26-2014 06-26-2014 Episodic Other inflammatory condition of skin (2 sources) Vasculitis limited to the skin, unspecified; Translations: [VASCULITIS LIMITED TO THE SKIN, UNSPECIFIED] Onset: 03-18-2017 Episodic Other non-traumatic joint disorders (1 source) Ankle pain; Translations: [Pain in unspecified ankle and joints of unspecified foot] 11-03-2013 Episodic Other non-traumatic joint disorders (1 source) Shoulder pain; Translations: [Pain in right shoulder] Onset: 06-26-2014 06-26-2014 Episodic Other screening for suspected conditions (not mental disorders or infectious disease) (3 sources) Encounter for screening for malignant neoplasm of colon; Translations: [Encounter for screening for malignant neoplasm of colon] Onset: 09-26-2014 09-26-2014 Episodic Spondylosis; intervertebral disc disorders; other back problems (3 sources) Low back pain; Translations: [Low back pain] Onset: 04-01-2017 04-01-2017 Episodic Unclassified (1 source) BACK/HIP PAIN Onset: 03-11-2017 Results Test Name Value Interpretation Reference Range Facil ity Vital Signs Date Time Vital Sign Value Performing Clinician Facility 06-14-2023 15:28-0400 Body height 177.8 cm Ann Marie Coronado MD Work Phone: [facility] 06-14-2023 15:28-0400 Body mass index (BMI) [Ratio] 27.84 kg/m2 Ann Marie Coronado MD Work Phone: [facility] 06-14-2023 15:28-0400 Body temperature 98.2 [degF] Ann Marie Coronado MD Work Phone: [facility] 06-14-2023 15:28-0400 Body weight 88 kg Ann Marie Coronado MD Work Phone: [facility] 09-01-2022 08:55-0500 Body mass index (BMI) [Ratio] 27.94 kg/m2 Ann Marie Coronado MD Work Phone: [facility] 09-01-2022 08:55-0500 Body weight 88.31 kg Ann Marie Coronado MD Work Phone: [facility] 09-01-2022 08:55-0500 Diastolic blood pressure 76 mm[Hg] Ann Marie Coronado MD Work Phone: [facility] 09-01-2022 08:55-0500 Heart rate 61 /min Ann Marie Coronado MD Work Phone: [facility] 09-01-2022 08:55-0500 SaO2% (BldA) [Mass fraction] 98 % Ann Marie Coronado MD Work Phone: [facility] 09-01-2022 08:55-0500 Systolic blood pressure 137 mm[Hg] Ann Marie Coronado MD Work Phone: [facility] 08-04-2021 13:46-0500 Body height 177.8 cm Sarah Fuller CNP Work Phone: [facility] 08-04-2021 13:46-0500 Body mass index (BMI) [Ratio] 27.84 kg/m2 Sarah Fuller CNP Work Phone: [facility] 08-04-2021 13:46-0500 Body temperature 98.2 [degF] Sarah Fuller CNP Work Phone: [facility] 08-04-2021 13:46-0500 Body weight 88 kg Sarah Fuller CNP Work Phone: [facility] 08-04-2021 13:46-0500 Diastolic blood pressure 78 mm[Hg] Sarah Fuller FISH[employer] DECKHAND Work Phone: [facility] 08-04-2021 13:46-0500 Heart rate 54 /min Sarah Fuller [employer] DECKHAND Work Phone: [facility] 08-04-2021 13:46-0500 Respiratory rate 17 /min Sarah Fuller CNP Work Phone: [facility] 08-04-2021 13:46-0500 SaO2% (BldA) [Mass fraction] 95 % Sarah Fuller [employer] DECKHAND Work Phone: [facility] 08-04-2021 13:46-0500 Systolic blood pressure 138 mm[Hg] Sarah Fuller [employer] DECKHAND Work Phone: [facility] 04-22-2015 15:21-0400 BMI (Body Mass Index) 28.45 kg/m2 [facility] Work Phone: 04-22-2015 15:21-0400 Body Temperature 96.8 [degF] [facility] Work Phone: 04-22-2015 15:21-0400 BP Diastolic 89 mm[Hg] [facility] Work Phone: 04-22-2015 15:21-0400 BP Systolic 169 mm[Hg] [facility] Work Phone: 04-22-2015 15:21-0400 BSA (Body Surface Area) 2.18 m2 [facility] Work Phone: 04-22-2015 15:21-0400 Pulse (Heart Rate) 60 /min [facility] Work Phone: 04-22-2015 15:21-0400 Respiratory Rate 16 /min [facility] Work Phone: 04-22-2015 15:21-0400 Weight 95.17 kg [facility] Work Phone: 10-17-2013 11:22-0500 Height 182.88 cm [facility] Work Phone: Encounters Encounter Date Encounter Type Care Provider Facility Start: 06-14-2023 End: 06-14-2023 Office outpatient visit 10 minutes Ann Marie Coronado MD Work Phone: [facility] Procedures Date Procedure Procedure Detail Performing Clinician Start: 08-04-2021 Gluc bld gluc mntr d ev cleared fda spec home use Sarah Fuller [employer] Work Phone: Start: 08-04-2021 Ecg routine ecg w/le ast 12 lds i&r only Sarah Ramirezchay [employer]KHAND Work Phone: Start: 01-18-2019 Antibody screen Plan of Treatment Date Care Activity Detail Author Start: 06-02-2023 End: 06-02-2023 Patient encounter procedure 06/02/2023 Office Visit Otolaryngology Ann Marie Coronado MD [address] [place] [address] [facility] Start: 05-07-2023 COVID-19 Vaccine ( season) COVID-19 Vaccine ( season) [facility] Start: 05-07-2022 Influenza vaccination Sequential Influenza Vaccine (#1) [facility] Start: 03-06-2022 COVID-19 Vaccine (5 - Booster for Moderna series) COVID-19 Vaccine (5 - Booster for Moderna series) [facility] Start: 04-29-2021 COVID-19 Vaccine (3 - Booster for Moderna series) COVID-19 Vaccine (3 - Booster for Moderna series) [facility] Start: 07-21-2019 Hemoglobin A1c measurement A1C [facility] Start: 04-07-2017 End: 04-07-2017 Physical Therapy General [facility], [address] [place] [address], [id number] [facility] Work Phone: Start: 04-01-2017 End: 04-01-2017 X-ray exam l-s spine bending X-Ray, Spine, Lumbar, complete with bending views [facility] Work Phone: Start: 04-09-2016 End: 04-09-2016 X-ray exam of hand X-Ray, Hand [facility] Work Phone: Start: 04-22-2015 End: 04-22-2015 Diagnostic colonoscopy Colonoscopy [facility] Work Phone: Start: 09-26-2014 End: 09-26-2014 Chest x-ray 4/> views Chest XRAY [facility] Work Phone: Start: 09-26-2014 End: 09-26-2014 Contrast x-ray exam of colon Barium Enema [facility] Work Phone: Start: 06-26-2014 End: 06-26-2014 Mri joint upr extrem w/o dye MRI Joint Upper Extremity [facility] Work Phone: Start: 06-26-2014 End: 06-26-2014 X-ray exam of shoulder X-Ray, Shoulder [facility] Work Phone: Start: 2006 Fall risk assessment Falls Risk Assessment [facility] Start: 2006 Pneumococcal Vaccine: Age 65+ (1 of 1 - PPSV23) Pneumococcal Vaccine: Age 65+ (1 of 1 - PPSV23) [facility] Start: 1991 Administration of herpes zoster vaccine Zoster Vaccines (1 of 2) [facility] Start: 1960 Administration of herpes zoster vaccine Zoster Vaccines (1 of 2) [facility] Start: 1959 Hepatitis C screening Hepatitis C Screening [facility] Start: 1953 Depression screening using PHQ-9 (Patient Health Questionnaire 9) score Depression Screening (PHQ-2/9) [facility] Start: 1951 Diabetic foot examination Foot Exam [facility] Start: 1951 Glaucoma screening [facility] Start: 1951 Urine screening for protein Urine Microalbumin [facility] Start: 1947 Pneumococcal Vaccine: Age 65+ (1 - PCV) Pneumococcal Vaccine: Age 65+ (1 - PCV) [facility] Start: 1944 History and physical examination, annual for health maintenance Wellness Visit [facility] Start: 1941 Tetanus vaccination Tetanus: Every 10yrs [facility] Patient Education Medications [facility] Work Phone: Immunizations Immunization Date Immunization Notes Care Provider Reyes mitchell 06-16-2022 influenza, high dose seasonal, preservative-free DR ANTONI ARELLANO DO [facility] 01-09-2022 COVID-19, mRNA, LNP- S, PF, 100 mcg or 50 mcg dose; Translations: [Moderna COVID-19 Vaccine] DR ANTONI ARELLANO DO [facility] 07-25-2021 COVID-19, mRNA, LNP- S, PF, 100 mcg or 50 mcg dose; Translations: [Moderna COVID-19 Vaccine] DR ANTONI ARELLANO DO [facility] 05-13-2021 influenza virus vaccine, unspecified formulation DR ANTONI ARELLANO DO [facility] Payers Date Payer Category Payer Medicare MMO [facility] MANAGED MEDICARE HMO [id number] 2020-Present [phone] [address] [place] [address] [id number] 2016 Medicare [id number] 1941 Unknown [id number] 1941 Unknown [id number] 1941 Unknown [id number] 1941 Unknown [id number] 1941 Unknown [id number] Social History Date Type Detail Facility Start: 03-16-2019 Never smoked tobacco (f inding) [facility] Clinical Notes 12-24-2020 to 06-14-2023 Ann Marie Coronado MD - 06/14/2023 3:59 PM Melia Hall MA - 06/14/2023 3:27 PM Bella Coronado MD - 09/01/2022 9:03 AM Kevin Chapman LPN - 09/01/2022 8:51 AM ESTLaboratory Note Date & Type Note Facility 06-14-2023 History of Present illness Narrative [facility] [address] [facility] [place] [address] [facility] [id number] Dept: [phone] MD Barrington Barcenas 82 y.o. male Patient presents with a chief complaint of Follow-up (9 mth ear cleaning) Temp 98.2 F (36.8 C) Ht 5' 10 Wt 88 kg (194 lb) BMI 27.84 kg/m History of Presenting Illness: The patient/caregiver reports a history of complaint with the following features: Onset: new onset in last few weeks Timing: recurring Duration: several weeks Quality: hearing loss left ear Location: right ear Severity: pain none Risk factors: often has wax impaction Alleviating factors: wax removal in the past Aggravating factors: pushing on left side of face Associated factors: no vertigo He reports that he had some ear pain with air travel on [place] recently but this has not persisted. Review of systems covering 10 systems is reviewed and pertinent positives and negatives are noted as above. Past Medical History: Diagnosis Date BPH (benign prostatic hyperplasia) Chronic insomnia Diabetes mellitus (HCC) Diverticulosis Essential tremor Fatty liver GERD (gastroesophageal reflux disease) Hiatal hernia History of thrombosis Hypertension Melanoma (HCC) Nephrolithiasis Osteoarthritis Sleep apnea Current Outpatient Medications: amLODIPine (NORVASC) 5 MG tablet, amlodipine 5 mg tablet TAKE 1 TABLET BY MOUTH ONCE DAILY, Disp: , Rfl: finasteride (PROSCAR) 5 mg tablet, finasteride 5 mg tablet TAKE 1 TABLET BY MOUTH ONCE DAILY, Disp: , Rfl: fluorouraciL (EFUDEX) 5 % cream, fluorouracil 5 % topical cream APPLY TWICE DAILY TO BASAL CELL CARCINOMA FOR 2 WEEKS OR UNTIL FOLLOW UP WITH DR. CANALES., Disp: , Rfl: gabapentin (NEURONTIN) 100 MG capsule, , Disp: , Rfl: lisinopriL (PRINIVIL,ZESTRIL) 40 MG tablet, lisinopril 40 mg tablet TAKE 1 TABLET BY MOUTH ONCE DAILY, Disp: , Rfl: metFORMIN (GLUCOPHAGE-XR) 500 MG 24 hr tablet, , Disp: , Rfl: nadoloL (CORGARD) 80 MG tablet, nadolol 80 mg tablet, Disp: , Rfl: omeprazole (PRILOSEC) 20 MG capsule, omeprazole 20 mg capsule,delayed release, Disp: , Rfl: pravastatin (PRAVACHOL) 20 MG tablet, Take 1 (one) tablet (20 mg total) by mouth nightly ., Disp: , Rfl: tamsulosin (FLOMAX) 0.4 mg capsule, Take 1 (one) capsule (0.4 mg total) by mouth daily ., Disp: , Rfl: topiramate (TOPAMAX) 25 MG tablet, topiramate 25 mg tablet, Disp: , Rfl: finasteride (PROSCAR) 5 mg tablet, Take by mouth ., Disp: , Rfl: fluticasone propionate (FLONASE) 50 mcg/actuation nasal spray, fluticasone propionate 50 mcg/actuation nasal spray,suspension USE 1 SPRAY(S) IN EACH NOSTRIL ONCE DAILY, Disp: , Rfl: Allergies Allergen Reactions Tetracycline Hives Ciprofloxacin Other reaction(s): Tremors Pollen Extracts Fenofibrate Micronized Rash Hydrochlorothiazide Rash Niacin Rash Tramadol Rash Past Surgical History: Procedure Laterality Date COLONOSCOPY W/ BIOPSIES AND POLYPECTOMY 09/23/2016 Dr. Wynne ESOPHAGOGASTRODUODENOSCOPY 01/19/2017 ESOPHAGOGASTRODUODENOSCOPY 01/07/2021 lower lid surgery 2020 TOTAL HIP ARTHROPLASTY 2018 Social History Socioeconomic History Marital status: Tobacco Use Smoking status: Former Smokeless tobacco: Never Vaping Use Vaping Use: Never used Family History Problem Relation Age of Onset Cancer Mother Heart disease Father PHYSICAL EXAM: The patient was examined today 06/14/2023 with findings as follows: CONSTITUTIONAL: General Appearance: well-appearing, nontoxic, alert, no acute distress Communication: reduced understanding at normal conversational tones, normal voicing, speech intelligible HEAD/FACE: Head: atraumatic, normocephalic, no lesions Facial Inspection: no lesions, healthy skin Facial Strength: motor strength normal, symmetric strength, symmetric movement Sinuses: no sinus tenderness Salivary Glands: no enlargements of parotid glands, no tenderness of parotid glands, no masses of parotid glands, clear salivary flow on palpation from Stensen's ducts, no duct stones of Stensen's duct, no enlargement of submandibular glands, no tenderness of submandibular glands, no masses of submandibular glands, clear salivary flow from Lizette's ducts, no stones of Lizette's ducts Temporomandibular Joint: no crepitus with motion, no tenderness on palpation, no trismus, motion symmetric EYES: Pupils: PERRLA, extra-ocular movements intact, no nystagmus, sclera white, no redness of eyes, no watering of eyes EARS: Bilateral External Ears: no pits, no tags Right External Ear: normally formed, no lesions, no mastoid tenderness Left External Ear: normally formed, no mastoid tenderness Right External Auditory Canal: normal, healthy skin, sticky cerumen removed, no discharge Left External Auditory Canal: normal, healthy skin, sticky cerumen removed, no discharge Right Tympanic Membrane: normal landmarks, translucent, mobile to pneumatic otoscopy, no perforation Left Tympanic Membrane: normal landmarks, tympanosclerosis, mobile to pneumatic otoscopy, no perforation Hearing: intact to spoken voice, intact to finger rub NECK: Neck: no masses, trachea midline, normal range of motion, no cysts or pits, no tenderness to palpation Thyroid: normal thyroid, no enlargement, no tenderness, no nodules LYMPH NODES: Cervical: no palpable lymph node enlargement SKIN: General Appearance: no lesions, warm and dry, normal turgor, no bruising NEUROLOGICAL SYSTEM: Orientation: oriented to time, oriented to place, oriented to person PSYCHIATRIC: Mood and affect: normal mood, normal affect Assessment and Plan: He has some cerumen which is removed. 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 He has not elected use of hearing aids for this. We have discussed the modified Valsalva for equalizing middle ear pressures is advised as he had some discomfort with recent air travel. No lasting injury or effusion is noted. 1. Bilateral impacted cerumen 2. Disorder of both eustachian tubes 3. Tympanosclerosis of left ear Return if symptoms worsen or fail to improve. The patient and/or caregiver is to notify the office if no improvement or worsening of symptoms is noted prior to the scheduled follow-up for sooner evaluation. The patient and/or caregiver is able to state an understanding of these recommendations and is agreeable to the treatment plan. --Ann Marie Coronado MD on 06/14/2023 at 6:18 PM An electronic signature was used to authenticate this note. Review of Systems Constitutional: Negative. HENT: Positive for hearing loss and tinnitus. Eyes: Negative. Respiratory: Negative. Cardiovascular: Negative. Gastrointestinal: Negative. Endocrine: Negative. Musculoskeletal: Negative. Allergic/Immunologic: Positive for environmental allergies. Neurological: Negative. Hematological: Negative. Psychiatric/Behavioral: Negative. documented in this encounter [facility] 09-01-2022 History of Present illness Narrative [facility] [address] [facility] [place] [address] [facility] [id number] Dept: [phone] MD Barrington Barcenas 81 y.o. male Patient presents with a chief complaint of Cerumen Impaction (New pt ) BP 137/76 (BP Location: Right arm, Patient Position: Sitting, BP Cuff Size: Adult) Pulse 61 Wt 88.3 kg (194 lb 11.2 oz) SpO2 98% BMI 27.94 kg/m History of Presenting Illness: The patient/caregiver reports a history of complaint with the following features: Onset: new onset in last few weeks Timing: recurring Duration: several weeks Quality: hearing loss left ear Location: right ear Severity: pain none Risk factors: often has wax impaction Alleviating factors: wax removal in the past Aggravating factors: pushing on left side of face Associated factors: no vertigo He has under treatment for basal cell carcinoma by Dr. Sachin Canales with topical agent. Review of systems covering 10 systems is reviewed and pertinent positives and negatives are noted as above. Past Medical History: Diagnosis Date Diabetes mellitus (HCC) Hypertension Current Outpatient Medications: amLODIPine (NORVASC) 5 MG tablet, amlodipine 5 mg tablet TAKE 1 TABLET BY MOUTH ONCE DAILY, Disp: , Rfl: finasteride (PROSCAR) 5 mg tablet, finasteride 5 mg tablet TAKE 1 TABLET BY MOUTH ONCE DAILY, Disp: , Rfl: finasteride (PROSCAR) 5 mg tablet, Take by mouth ., Disp: , Rfl: fluorouraciL (EFUDEX) 5 % cream, fluorouracil 5 % topical cream APPLY TWICE DAILY TO BASAL CELL CARCINOMA FOR 2 WEEKS OR UNTIL FOLLOW UP WITH DR. CANALES., Disp: , Rfl: fluticasone propionate (FLONASE) 50 mcg/actuation nasal spray, fluticasone propionate 50 mcg/actuation nasal spray,suspension USE 1 SPRAY(S) IN EACH NOSTRIL ONCE DAILY, Disp: , Rfl: gabapentin (NEURONTIN) 100 MG capsule, , Disp: , Rfl: lisinopriL (PRINIVIL,ZESTRIL) 40 MG tablet, lisinopril 40 mg tablet TAKE 1 TABLET BY MOUTH ONCE DAILY, Disp: , Rfl: metFORMIN (GLUCOPHAGE-XR) 500 MG 24 hr tablet, , Disp: , Rfl: omeprazole (PRILOSEC) 20 MG capsule, omeprazole 20 mg capsule,delayed release, Disp: , Rfl: tamsulosin (FLOMAX) 0.4 mg capsule, Take 1 (one) capsule (0.4 mg total) by mouth daily ., Disp: , Rfl: topiramate (TOPAMAX) 25 MG tablet, topiramate 25 mg tablet, Disp: , Rfl: nadoloL (CORGARD) 80 MG tablet, nadolol 80 mg tablet, Disp: , Rfl: Allergies Allergen Reactions Tetracycline Hives Ciprofloxacin Other reaction(s): Tremors Pollen Extracts Fenofibrate Micronized Rash Hydrochlorothiazide Rash Niacin Rash Tramadol Rash Past Surgical History: Procedure Laterality Date lower lid surgery 2020 TOTAL HIP ARTHROPLASTY 2018 Social History Socioeconomic History Marital status: Tobacco Use Smoking status: Former Smokeless tobacco: Never Vaping Use Vaping Use: Never used Family History Problem Relation Age of Onset Cancer Mother Heart disease Father PHYSICAL EXAM: The patient was examined today 09/01/2022 with findings as follows: CONSTITUTIONAL: General Appearance: well-appearing, nontoxic, alert, no acute distress Communication: reduced understanding at normal conversational tones, normal voicing, speech intelligible HEAD/FACE: Head: atraumatic, normocephalic, no lesions Facial Inspection: no lesions, healthy skin Facial Strength: motor strength normal, symmetric strength, symmetric movement Sinuses: no sinus tenderness Salivary Glands: no enlargements of parotid glands, no tenderness of parotid glands, no masses of parotid glands, clear salivary flow on palpation from Stensen's ducts, no duct stones of Stensen's duct, no enlargement of submandibular glands, no tenderness of submandibular glands, no masses of submandibular glands, clear salivary flow from Isabella's ducts, no stones of Isabella's ducts Temporomandibular Joint: no crepitus with motion, no tenderness on palpation, no trismus, motion symmetric EYES: Pupils: PERRLA, extra-ocular movements intact, no nystagmus, sclera white, no redness of eyes, no watering of eyes EARS: Bilateral External Ears: no pits, no tags Right External Ear: normally formed, no lesions, no mastoid tenderness Left External Ear: normally formed, ulcerated lesion of herb 1 x 2 cm irregular shaped with eschar, no mastoid tenderness Right External Auditory Canal: normal, healthy skin, obstructing cerumen removed, no discharge Left External Auditory Canal: normal, healthy skin, obstructing cerumen, removed, no discharge Right Tympanic Membrane: normal landmarks, translucent, mobile to pneumatic otoscopy, no perforation Left Tympanic Membrane: normal landmarks, tympanosclerosis, mobile to pneumatic otoscopy, no perforation Hearing: intact to spoken voice, intact to finger rub NECK: Neck: no masses, trachea midline, normal range of motion, no cysts or pits, no tenderness to palpation Thyroid: normal thyroid, no enlargement, no tenderness, no nodules LYMPH NODES: Cervical: no palpable lymph node enlargement SKIN: General Appearance: no lesions, warm and dry, normal turgor, no bruising NEUROLOGICAL SYSTEM: Orientation: oriented to time, oriented to place, oriented to person PSYCHIATRIC: Mood and affect: normal mood, normal affect Assessment and Plan: He has abundant cerumen which is removed restoring his hearing. 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 He does have a malignancy of the left ear as well and we have discussed that I would be able to provide surgical resection and reconstruction if topical care through dermatology is not successful. 1. Bilateral impacted cerumen 2. 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 Sensorineural hearing loss, bilateral Return in about 9 months (around 06/02/2023). The patient and/or caregiver is to notify the office if no improvement or worsening of symptoms is noted prior to the scheduled follow-up for sooner evaluation. The patient and/or caregiver is able to state an understanding of these recommendations and is agreeable to the treatment plan. --Ann Marie Coronado MD on 09/01/2022 at 9:24 AM An electronic signature was used to authenticate this note. Review of Systems Constitutional: Negative. HENT: Positive for hearing loss and postnasal drip. Negative for congestion, dental problem, drooling, ear discharge, ear pain, facial swelling, mouth sores, nosebleeds, rhinorrhea, sinus pressure, sinus pain, sneezing, sore throat, tinnitus, trouble swallowing and voice change. Eyes: Negative. Respiratory: Negative. Cardiovascular: Negative. Gastrointestinal: Negative. Endocrine: Negative. Genitourinary: Negative. Musculoskeletal: Negative. Skin: Negative. Allergic/Immunologic: Positive for environmental allergies. Negative for food allergies and immunocompromised state. Neurological: Positive for tremors. Negative for dizziness, seizures, syncope, facial asymmetry, speech difficulty, weakness, light-headedness, numbness and headaches. Psychiatric/Behavioral: Negative. 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 male who presents for preoperative medical risk stratification prior to eye surgery at the request of Julius Peterson MD. His medical conditions include: Hypertension- chronic, stable, patient reports compliant with antihypertensive medication and blood pressures 120/80s at home Hyperlipidemia - chronic, stable, patient reports compliant with taking statin medication, reports no s/e or myalgias Diabetes type 2- chronic, stable, patient reports compliant with diabetic medication, does not take insulin, patient reports blood sugars 120s at home Patient Active Problem List Diagnosis Mixed hyperlipidemia Diabetes mellitus (HCC) Essential hypertension Past Medical History: Diagnosis Date Diabetes mellitus (HCC) Hypertension Type of anesthesia: Sedation Anesthesia History: Yes, without complications History reviewed. No pertinent surgical history. Allergies Allergen Reactions Ciprofloxacin Other reaction(s): Tremors Pollen Extracts Fenofibrate Micronized Rash Hydrochlorothiazide Rash Niacin Rash Tramadol Rash Review of Systems Constitutional: Negative for activity change, appetite change, chills, diaphoresis, fatigue, fever and unexpected weight change. HENT: Negative for dental problem and trouble swallowing. Eyes: Positive for visual disturbance. Respiratory: Negative for apnea, cough, choking, chest tightness, shortness of breath, wheezing and stridor. Cardiovascular: Negative for chest pain, palpitations and leg swelling. Skin: Negative for wound. Neurological: Negative for dizziness, seizures, weakness, light-headedness and headaches. Psychiatric/Behavioral: Negative for confusion. Social History Tobacco Use Smoking status: Former Smoker Smokeless tobacco: Never Used Substance Use Topics Alcohol use: Not on file Social History Substance and Sexual Activity Drug Use Not on file Marital Status: History reviewed. No pertinent family history. Current Outpatient Medications Medication Sig Dispense Refill amLODIPine (NORVASC) 5 MG tablet amlodipine 5 mg tablet TAKE 1 TABLET BY MOUTH ONCE DAILY finasteride (PROSCAR) 5 mg tablet finasteride 5 mg tablet TAKE 1 TABLET BY MOUTH ONCE DAILY gabapentin (NEURONTIN) 100 MG capsule lisinopriL (PRINIVIL,ZESTRIL) 40 MG tablet lisinopril 40 mg tablet TAKE 1 TABLET BY MOUTH ONCE DAILY metFORMIN (GLUCOPHAGE-XR) 500 MG 24 hr tablet nadoloL (CORGARD) 80 MG tablet nadolol 80 mg tablet omeprazole (PRILOSEC) 20 MG capsule omeprazole 20 mg capsule,delayed release tamsulosin (FLOMAX) 0.4 mg capsule Take 0.4 mg by mouth daily . No current facility-administered medications for this visit. PHYSICAL Patient Name: Barrington Trejo Age: 80 y.o. BP 138/78 Pulse (!) 54 Temp 98.2 F (36.8 C) (Infrared) Resp 17 Ht 5' 10 Wt 88 kg (194 lb) SpO2 95% BMI 27.84 kg/m Physical Exam Vitals and nursing note reviewed. Constitutional: General: He is not in acute distress. Appearance: Normal appearance. He is well-developed. He is not ill-appearing, toxic-appearing or diaphoretic. HENT: Head: Normocephalic and atraumatic. Cardiovascular: Rate and Rhythm: Normal rate and regular rhythm. Pulmonary: Effort: Pulmonary effort is normal. No respiratory distress. Breath sounds: Normal breath sounds and air entry. No decreased breath sounds, wheezing, rhonchi or rales. Chest: Chest wall: No tenderness. Skin: General: Skin is warm. Neurological: Mental Status: He is alert and oriented to person, place, and time. He is not disoriented. Psychiatric: Attention and Perception: Attention and perception normal. Mood and Affect: Mood and affect normal. Speech: Speech normal. Behavior: Behavior normal. Behavior is cooperative. Thought Content: Thought content normal. Cognition and Memory: Cognition and memory normal. Judgment: Judgment normal. EKG: reviewed by me Results for orders placed or performed in visit on 08/04/21 POC Glucose by reagent strip (Finger Stick) Result Value Ref Range Glucose 123 (A) 65 - 99 mg/dL ECG 12 Lead Result Value Ref Range Atrial Rate Ventricular Rate P-R Interval QRS Duration Q-T Interval Q-T Interval (corrected) QTC Calculation (Bezet) P York R York T York IMPRESSION/PLAN: 80 y.o. male being seen today for preoperative medical risk stratification for same-day eye surgery at the request of Julius Peterson MD. Risk factors for surgery include: Hypertension- chronic, stable, patient reports compliant with antihypertensive medication and blood pressures 120/80s at home Hyperlipidemia - chronic, stable, patient reports compliant with taking statin medication, reports no s/e or myalgias Diabetes type 2- chronic, stable, patient reports compliant with diabetic medication, does not take insulin, patient reports blood sugars 120s at home Age Falls:Patient is at higher risk for falls due to vision impairment- fall risk precautions were discussed with patient including turning on lights and securing carpet edges. Preoperative recommendations: I reviewed the patient's pertinent medical history and medications. No additional recommendations or changes were discussed with patient today prior to scheduled surgery. Risk Assessment: The patient is currently in a medically optimal state and the risk of surgery is low at this time. Questions regarding his medical issues were answered and discussed. Postoperative recommendations: Patient was instructed to continue his current medical regimen following surgery, unless instructed otherwise by his surgeon. The patient will follow up with his PCP for any additional medical concerns. This patient has an acceptable cardiac risk for the intended procedure, it is my professional opinion that the patient does not have any medical condition at this present time that significantly increase the risk for an adverse outcome. Thank you for the opportunity to evaluate your patient. Please feel free to contact our office with any questions. A copy of this evaluation was provided to the referring physician. documented in this encounter [facility] 01-24-2021 Note HNO ID: [id number] Author: Teddy Cruz Service: ? Author Type: Infertility Medical Assistant Type: Progress Notes Filed: 01/24/2021 4:15 PM Note Text: Radiology Service Progress Note DATE OF SERVICE: January 24, 2021 TIME: 4:14 PM PATIENT IDENTITY VERIFICATION COMPLETED USING TWO (2) STANDARD IDENTIFIERS: Name and Date of confirmed by patient verbally. FALL SCREENING: Has the patient had 2 falls in the last year or 1 fall with injury or currently using an Ambulatory Assistive Device (Walker, Cane, Wheelchair, Crutches, etc.)? No PATIENT GENDER DATA: Male PATIENT RELEVANT IMPLANT DATA REVIEWED: Yes ALLERGIES: Reviewed and unchanged CONTRAST ALLERGY: NO. EXAM: CT -CONTRAST INDUCED NEPHROPATHY RISK FACTORS: Patient age > 60 years CREATININE: Creatinine Date Value Ref Range Status 01/10/2021 0.78 0.73 - 1.22 mg/dL Final 02/04/2019 0.82 0.73 - 1.22 mg/dL Final 01/18/2019 0.90 0.73 - 1.22 mg/dL Final eGFR-All Other Races Date Value Ref Range Status 01/10/2021 >60 . Final Comment: eGFR (Estimated GFR) Units of measure: mL/min/1.73 meters squared eGFR is derived from the reexpressed MDRD Study equation using the following parameters: serum creatinine, age, gender and race. The creatinine assay has been calibrated to be traceable to IDMS. An eGFR <60 mL/min/1.73m2 for >3 months is consistent with chronic kidney disease. Refer to KDOQI guidelines for clinical interpretation. In patients with unstable renal function, e.g. those with acute kidney injury, the eGFR may not accurately reflect actual GFR. eGFR- Date Value Ref Range Status 01/10/2021 >60 Final P.O.C.T. RESULTS: POC done: Yes, See Lab Tab January 24, 2021 TREATMENT: N/A PERIPHERAL IV DATA: Ambulatory: A peripheral IV was started in the Left antecubital site with a Angio cath: 22 gauge. RADIOLOGY DEPARTMENT: CT; Exam(s) Completed: Abdomen/Pelvis SIGNATURE: Teddy Mcgarry PATIENT NAME: Barrington Trejo DATE: January 24, 2021 TIME: 4:14 PM [facility] 01-10-2021 Note HNO ID: [id number] Author: Mark Leary MD Service: ? Author Type: Physician Type: Progress Notes Filed: 01/10/2021 2:18 PM Note Text: DEPARTMENT OF GASTROENTEROLOGY - FOLLOW UP VISIT HISTORY OF PRESENT ILLNESS Barrington Trejo is a 80 year old male who presents today for follow up of left lower quadrant abdominal pain that developed last week. Seen by [facility] [employer], given amoxicillin x 4 days, without improvement, and stopped taking the medication. No fevers, no chills. Takes an ASA before. TEST RESULTS SINCE LAST VISIT Imaging/Procedures: Hemoglobin (g/dL) Date Value 02/04/2019 12.9 Hematocrit (%) Date Value 02/04/2019 38.2 WBC (k/uL) Date Value 02/04/2019 9.59 Glucose (mg/dL) Date Value 02/04/2019 161 Potassium (mmol/L) Date Value 02/04/2019 3.9 Sodium (mmol/L) Date Value 02/04/2019 134 Chloride (mmol/L) Date Value 02/04/2019 98 CO2 (mmol/L) Date Value 02/04/2019 24 Creatinine (mg/dL) Date Value 02/04/2019 0.82 BUN (mg/dL) Date Value 02/04/2019 15 Anion Gap (mmol/L) Date Value 02/04/2019 12 Calcium (mg/dL) Date Value 02/04/2019 8.7 Protein, Total (g/dL) Date Value 01/18/2019 7.1 Albumin (g/dL) Date Value 01/18/2019 4.2 Bilirubin, Total (mg/dL) Date Value 01/18/2019 0.7 Alkaline Phosphatase (U/L) Date Value 01/18/2019 83 AST (U/L) Date Value 01/18/2019 21 ALT (U/L) Date Value 01/18/2019 27 Current Outpatient Medications Medication Sig Dispense Refill - OMEPRAZOLE ORAL Take 20 mg by mouth. - aspirin, enteric coated (ECOTRIN LOW STRENGTH) 81 mg EC tablet Take 1 tablet by mouth twice daily for 28 days. 56 tablet 0 - pantoprazole DR (PROTONIX) 20 mg tablet Take 1 tablet by mouth once daily for 14 days. 14 tablet 0 - tamsulosin ER (FLOMAX) 0.4 mg cap Take 0.4 mg by mouth daily at bedtime. - AMLODIPINE BESYLATE (AMLODIPINE ORAL) Take 5 mg by mouth. - nadolol (CORGARD) 80 mg tablet Take 160 mg by mouth once daily. - finasteride (PROSCAR) 5 mg tablet Take 5 mg by mouth once daily. - lisinopril (ZESTRIL, PRINIVIL) 20 mg tablet Take 40 mg by mouth once daily. No current facility-administered medications for this visit. ALLERGIES Allergen Reactions - Ciprofloxacin Betai* Other: See Comments tremors came back - Hydrochlorothiazide Rash - Niacin Rash - Tramadol Rash - Tricor [Fenofibrate* Rash REVIEW OF SYSTEMS EyesNegative for vision changes, diplopia or epiphora. Ears, Mouth, nose, throat:No problems Cardiovascular: No Problems Respiratory: Negative for cough, wheezing and shortness of breath Gastrointestinal : No problems Genitourinary: Negative Musuloskeletal: Denies significant problems Integumentary: no rashes, lesions, or jaundice Neurological: No history of neurologic problems Endocrine: Negative for cold or heat intolerance, polyuria, polydipsia and goiter. Psychiatric: Cooperative and agreeable Allergic/ Immunologic: Negative All others negative PAST MEDICAL HISTORY Heart Disease: no Lung Disease: no Liver problems: no Thyroid disease: no Kidney stones: no Depression or other mental illness: no PHYSICAL EXAMINATION There were no vitals taken for this visit. General Appearance: alert, oriented x 3, pleasant and in no acute distress Eyes: Negative for significant chage in vision, and significant vision problems Oropharynx:Lips, tongue, and oral mucosa normal. There is no thrush or oral ulcers. Lungs: breath sounds clear to auscultation bilaterally, no crackles, rhonchi, or wheezes Heart: regular rate and rhythm, no murmurs or gallops Abdomen: not distended, normal bowel sounds, soft and depressible, no guarding or rebound, no palpable mass, no organomegaly Rectal exam: deferred Extremities: no cyanosis or edema Skin: no jaundice, no spider angiomas, no palmar erythema Neuro: alert, oriented x 3, pleasant and in no acute distress Assessment IMPRESSION Mr. rTejo is a 80 year old year old male who presents with LLQ abdominal pain. Need to rule out diverticulitis. PLAN ASSESSMENT/PLAN: 1. Left lower quadrant abdominal pain - ICD9: 789.04, ICD10: R10.32 - CT ABD/PEL W IVCON - CREATININE BLD Plan is to follow up as needed (prn). Mark Leary MD January 10, 2021 2:10 PM [facility] 12-24-2020 Note HNO ID: [id number] Author: Mark Leary Service: ? Author Type: Physician Type: Progress Notes Filed: 12/24/2020 10:47 AM Note Text: DEPARTMENT OF GASTROENTEROLOGY - NEW PATIENT/CONSULT REASON FOR VISIT Barrington Trejo is a 80 year old male who is scheduled at the request of Self for New Patient. My final recommendations will be communicated back to the requesting physician by the way of the shared medical record, fax, or via US Mail HISTORY OF PRESENT ILLNESS Barrington Trejo is a 80 year old male who presents today for an evaluation of submucosal nodule. Underwent EGD 09/04/2020 with Ramos Ortiz, found to have localized erythema, friability and nodularity of the mucosa in the fundus, likely consistent with localized gastritis but biopsies.Localized nodularity of the mucosa int he antrum. No polypoid lesion amenable to resection. Small but submucosal. Multiple biopsies taken. Several sessile polyps of benign appearance seen in the stomach. Given 3 year recall. Patient preferred EUS evaluation. On Famotidine 40 mg po qhs which is effective. Takes omeprazole PRN. Sleeps in a recliner. Going to try and get back to sleeping in the bed. PAST MEDICAL HISTORY Diagnosis Date - Abdominal pain, generalized - Diverticulosis 09/16/2016 - Enlarged prostate - Fatty liver 09/16/2016 - Gallstones 09/16/2016 - Hiatal hernia 09/16/2016 - Hypertension - Reflux esophagitis - Tremors of nervous system - Tremors of nervous system PAST SURGICAL HISTORY Procedure Laterality Date - COLONOSCOP W/ OR W/O [facility] SPEC 09/23/2016 Colonoscopy mac - COLONOSCOPY 2004 - EGD 2010 - EGD W/O OR W/BRUSH/WASH 09/23/2016 EGD mac - EGD W/O OR W/BRUSH/WASH 01/19/2017 EGD - PAST SURGICAL HISTORY OF ankle surgery/screws in place Current Outpatient Medications Medication Sig Dispense Refill - OMEPRAZOLE ORAL Take 20 mg by mouth. - tamsulosin ER (FLOMAX) 0.4 mg cap Take 0.4 mg by mouth daily at bedtime. - AMLODIPINE BESYLATE (AMLODIPINE ORAL) Take 5 mg by mouth. - nadolol (CORGARD) 80 mg tablet Take 160 mg by mouth once daily. - finasteride (PROSCAR) 5 mg tablet Take 5 mg by mouth once daily. - lisinopril (ZESTRIL, PRINIVIL) 20 mg tablet Take 40 mg by mouth once daily. - aspirin, enteric coated (ECOTRIN LOW STRENGTH) 81 mg EC tablet Take 1 tablet by mouth twice daily for 28 days. 56 tablet 0 - pantoprazole DR (PROTONIX) 20 mg tablet Take 1 tablet by mouth once daily for 14 days. 14 tablet 0 No current facility-administered medications for this visit. ALLERGIES Allergen Reactions - Ciprofloxacin Betai* Other: See Comments tremors came back - Hydrochlorothiazide Rash - Niacin Rash - Tramadol Rash - Tricor [Fenofibrate* Rash Social History Tobacco Use - Smoking status: Former Smoker Packs/day: 1.00 Years: 2.00 Pack years: 2.00 Types: Cigarettes Quit date: 09/06/1970 Years since quittin.3 - Smokeless tobacco: Never Used Substance Use Topics - Alcohol use: Yes Comment: occasional - Drug use: No FAMILY HISTORY (grandparents, parents, brothers, sisters, aunts, or uncles) Liver Problems: No Ulcerative Colitis: No Crohn's Disease: No Colon Cancer: No Colon Polyps: No IBS: No Celiac disease: No Bleeding Disorders: No GI SPECIFIC REVIEW OF SYMPTOMS Difficulty swallowing / foods sticking in throat: no Heartburn: no Hoarseness: no Chronic cough: no Regurgitation: no Chest pain: no Filling up quickly at meals:no Loss of appetite: no Nausea: no Vomiting: no Abdominal pain: no Recent change in bowel movements: no Bloody or black, bowel movements: no Constipation: no Diarrhea: no Loss of control of bowel movements: no Night sweats: no Fever: no Chills: no Thought or memory problems: no Fluid in abdomen (ascites): no Prominent leg swelling: no Vomiting blood: no Recent change in weight: No REVIEW OF SYSTEMS EyesNegative for vision changes, diplopia or epiphora. Ears, Mouth, nose, throat:No problems Cardiovascular: No Problems Respiratory: Negative for cough, wheezing and shortness of breath Gastrointestinal : No problems Genitourinary: Negative Musuloskeletal: Denies significant problems Integumentary: no rashes, lesions, or jaundice Neurological: No history of neurologic problems Endocrine: Negative for cold or heat intolerance, polyuria, polydipsia and goiter. Psychiatric: Cooperative and agreeable Allergic/ Immunologic: Negative All others negative PAST MEDICAL HISTORY Colon polyps: no Colon cancer: no Other cancer: no Radiation / Chemotherapy: no Crohn's disease / Ulcerative colitis: no High cholesterol or triglycerides: no Ulcers: no Gallstones: no Hepatitis / Jaundice: no Heart Disease: no Lung Disease: no Liver problems: no Thyroid disease: no Kidney stones: no Pancreatitis: no Diabetes: no Arthritis: no Rheumatic fever: no Gastrointestinal bleeding: no Depression (more content not included)... [facility] Evaluation + Plan note Future Appointments Appointment Date:09/30/2021 02:20:00 PM Scheduled Provider:ANTONI ARELLANO DO Location:[facility] Appointment Type:PC OV Future Scheduled TestsThyroid Stimulating Hormone 10/02/21A1C Hemoglobin 10/02/21Complete Blood Count 10/02/21Lipid Profile 10/02/21Complete Metabolic Panel 10/02/21 [facility] Evaluation + Plan note Future Appointments Appointment Date:09/30/2021 02:20:00 PM Scheduled Provider:ANTONI ARELLANO DO Location:[facility] Appointment Type:PC OV [facility] Evaluation + Plan note Future Appointments Appointment Date:04/16/2022 11:30:00 AM Scheduled Provider:ANTONI ARELLANO DO Location:[facility] Appointment Type:PC OV Future Scheduled TestsProstate Specific Antigen 04/11/22Thyroid Stimulating Hormone 04/11/22A1C Hemoglobin 04/11/22Complete Blood Count 04/11/22Lipid Profile 04/11/22Complete Metabolic Panel 04/11/22XR Sacroiliac Joints Minimum 3 Views 01/09/22XR Spine Lumbar AP/LAT 01/09/22 [facility] Evaluation + Plan note Future Appointments Appointment Date:01/15/2023 11:30:00 AM Scheduled Provider:ANTONI ARELLANO DO Location:[facility] Appointment Type:PC OV Future Scheduled TestsThyroid Stimulating Hormone 07/17/22Complete Blood Count 07/17/22Lipid Profile 07/17/22Complete Metabolic Panel 07/17/22XR Sacroiliac Joints Minimum 3 Views 01/09/22XR Spine Lumbar AP/LAT 01/09/22 [facility] Bilateral impacted cerumen- Primary Impacted cerumen 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 hearing loss, bilateral [facility] Diagnosis Bilateral impacted cerumen- Primary Impacted cerumen Disorder of both eustachian tubes Tympanosclerosis of left ear documented in this encounter [facility] course Narrative No data available for this section [facility] Hospital Discharge instructions No data available for this section [facility] Progress note No data available for this section [facility] Summary Purpose Family History No Family History Records FoundNo Family History Records FoundNo Family History Records FoundNo Family History Records FoundNo Family History Records Found Advance Directives Documents on File Type Date Recorded Patient Faculty Administrator Expl anation Advance Directives and Living Will Procedure Findings Note HNO ID: [id number] Author: Ernie Earl Service: Orthopaedic Surgery Author Type: Physician Type: Operative Report Filed: 02/03/2019 10:57 AM Note Text: OPERATIVE NOTE PATIENT NAME: Barrington Trejo LOG ID: [id number] Surgery Date: 02/03/2019 Surgeon(s) and It Project Lead(s): Surgeon(s) and Role: * Tacos Earl - Primary Physician It Project Lead: Alis Lama (Pa) Mincing Machine Operator: Lamar Magaña Procedure(s): Procedure(s) (LRB): ARTHROPLASTY REPLACE JOINT TOTAL HIP (Right) BMI: Estimated body mass index is 27.95 kg/m? as calculated from the following: Height as of 01/18/19: 181.6 cm (5' 11.5 ). Weight as of 01/18/19: 92.2 kg (203 lb 3.2 oz). Anesthesia: General Operative Time: Total operative time from wheels in to wheels out, including anesthesia time was * Missing case tracking time(s) * Incision Start: 9:58 AM Incision Stop: 11:10 AM Attestation: I was present for all of the critical portions of the operation and performed all critical portions. The resident/fellow/PA perf (more content not included)... Note HNO ID: [id number] Author: Aleksandr condon Jr (Res) [employer]-Inyang Service: Orthopaedic Surgery Author Type: Resident Type: Discharge Summary Filed: 02/04/2019 10:45 AM Note Text: ORTHOPEDIC SURGERY DISCHARGE SUMMARY ADMISSION DATE: 02/03/19 DISCHARGE DATE: 02/04/19 Attending Physician: Tacos Earl Reason for Hospitalization: R NATALIE Admitting Diagnosis: Hip Advanced Degenerative Joint Disease Discharge Diagnosis: Hip Advanced Degenerative Joint Disease Additional Diagnoses: ACTIVE PROBLEM LIST Stiffness of Joint, Not Elsewhere Classified, Ankle and Foot Shoulder Arthritis Shoulder Impingement Hypertension Tremors of Nervous System Reflux Esophagitis Enlarged Prostate Abdominal Pain, Generalized Fatty Liver Gallstones Diverticulosis Hiatal Hernia Chronic Antral Gastritis Benign Prostatic Hyperplasia Without Lower Urinary Tract Symptoms Acute Deep Vein Thrombosis (Dvt) of Popliteal Vein of Left Lower Extremity (Hcc) Surgeries During Hospitalization: Procedure(s) (LRB): ARTHROPLASTY REPLACE JOINT TOTAL (more content not included)... Hospital Course Note HNO ID: [id number] Author: Aleksandr condon Jr (Res) [employer] Service: Orthopaedic Surgery Author Type: Resident Type: Discharge Summary Filed: 02/04/2019 10:45 AM Note Text: ORTHOPEDIC SURGERY DISCHARGE SUMMARY ADMISSION DATE: 02/03/19 DISCHARGE DATE: 02/04/19 Attending Physician: Tacos Earl Reason for Hospitalization: R NATALIE Admitting Diagnosis: Hip Advanced Degenerative Joint Disease Discharge Diagnosis: Hip Advanced Degenerative Joint Disease Additional Diagnoses: ACTIVE PROBLEM LIST Stiffness of Joint, Not Elsewhere Classified, Ankle and Foot Shoulder Arthritis Shoulder Impingement Hypertension Tremors of Nervous System Reflux Esophagitis Enlarged Prostate Abdominal Pain, Generalized Fatty Liver Gallstones Diverticulosis Hiatal Hernia Chronic Antral Gastritis Benign Prostatic Hyperplasia Without Lower Urinary Tract Symptoms Acute Deep Vein Thrombosis (Dvt) of Popliteal Vein of Left Lower Extremity (Hcc) Surgeries During Hospitalization: Procedure(s) (LRB): ARTHROPLASTY REPLACE JOINT TOTAL (more content not included)... Additional Source Comments (unrecognized sect ion and content) No Status Records FoundNo Status Records FoundNo Status Records FoundNo Status Records FoundNo Status Records Found INFORMATION SOURCE (unrecogn ized section and content) DATE CREATED AUTHOR AUTHOR'S ORGANIZ ATION 02/14/2019 [facility] DATE CREATED AUTHOR AUTHOR'S ORGANIZ ATION 10/29/2021 [facility] DATE CREATED AUTHOR AUTHOR'S ORGANIZ ATION 09/01/2022 [facility] DATE CREATED AUTHOR AUTHOR'S ORGANIZ ATION 09/08/2022 [facility] ([place]) Reason for Visit (unrecogniz ed section and content) Reason Comments Cerumen Impaction New pt Reason Comments Follow-up 9 mth ear cleaning Care Teams (unrecognized sec tion and content) Cloth Tester Relationship Specialty Start Date End Date No, Physician [facility] PCP - General 08/04/21 Cloth Tester Relationship Specialty Start Date End Date No, Physician [facility] PCP - General 08/04/21 Care Team (unrecognized sect ion and content) Care Team Personnel Name: ADAN ANTONI DO Position: P4 Physician - Primary Care Member Role: Primary Care Physician Address: Address: [address] [place] [id number] [place] [address] Care Team Related Persons Name: HILDA TREJO FOR RECORDS PERTAINING TO PATIENTS WHO ARE OR HAVE BEEN ENROLLED IN A CHEMICAL DEPENDENCY/SUBSTANCEABUSE PROGRAM, SOME INFORMATION MAY BE OMITTED. This clinical summary was aggregated from multiple sources. Caution should be exercised in using it in the provision of clinical care. This summary normalizes information from multiple sources, and as a consequence, information in this document may materially change the coding, format and clinical context of patient data. In addition, data may be omitted in some cases. CLINICAL DECISIONS SHOULD BE BASED ON THE PRIMARY CLINICAL RECORDS. [facility] [employer] [facility]. provides no warranty or guarantee of the accuracy or completeness of information in this document.
[2023-09-24] MEDS: Lactated Ringers 1,000 ML 15 ML IV ×2 (11:42→13:24)
--- NOTE | 2023-09-24 12:01 | HP.PCM_ITS ---
HPI - General General Date of Service: 09/24/23 Chief Complaint: BPH with obstruction HPI Narrative ANITA TREJO, is a 82 M who presents for transurethral resection of the prostate [facility] Medical History (Updated 09/10/23 @ 11:29 by Gabbi Chicas) Abrasion Alcohol use Bladder disease Cancer Diabetes DVT (deep venous thrombosis) Gastric reflux High cholesterol History of hiatal hernia History of pain when walking History of stress test Hx of fracture of ankle Hypertension Loss of hearing Neuropathy Non-smoker Prostate disease Tremor Wears glasses Home Medications finasteride 5 mg tablet 5 mg PO DAILY 10/18/13 [History Last Taken 09/23/23] lisinopril 20 mg tablet 20 mg PO DAILY 09/14/14 [History Last Taken 09/24/23] nadolol 80 mg tablet (Corgard) 80 mg PO DAILY 09/14/14 [History Last Taken 09/24/23] omeprazole 20 mg capsule,delayed release 20 mg PO DAILY PRN indigestion 09/14/14 [History Last Taken 09/24/23] amlodipine 5 mg tablet 5 mg PO DAILY 02/20/19 [History Last Taken 09/24/23] tamsulosin 0.4 mg capsule 0.4 mg PO QHS 02/20/19 [History Last Taken 09/23/23] cholecalciferol (vitamin D3) 50 mcg (2,000 unit) capsule (Vitamin D3) 50 mcg PO DAILY 09/10/23 [History Last Taken 09/23/23] metformin 500 mg tablet,extended release 24 hr 500 mg PO 1200 09/10/23 [History Last Taken 09/23/23] rosuvastatin 5 mg tablet 5 mg PO 1200 09/10/23 [History Last Taken Unknown] topiramate 25 mg tablet 25 mg PO BID 09/10/23 [History Last Taken 09/23/23] Allergy/AdvReac Type Severity Reaction Status Date / Time fenofibrate [From Tricor] Allergy Rash Verified 09/24/23 11:34 hydrochlorothiazide Allergy Rash Verified 09/24/23 11:34 niacin Allergy Rash Verified 09/24/23 11:34 tetracycline [Tetracycline] Allergy Hives Verified 09/24/23 11:34 tramadol Allergy Hives Verified 09/24/23 11:34 ciprofloxacin [From Cipro] AdvReac Nausea/Vom/ Verified 09/24/23 11:34 Diarrhea Surgical History (Updated 09/10/23 @ 11:29 by Gabbi Chicas) Hx of colonoscopy Hx of esophagogastroduodenoscopy Hx of left cataract extraction Hx of right cataract extraction Hx of total hip arthroplasty Social History Smoking Status: Never smoker Vital Signs Vital Signs Vital Signs: 09/24/23 11:38 09/24/23 11:38 Temperature 97.2 F L Temperature Source Temporal Pulse Rate 16 L Respiratory Rate 16 Respiratory Pattern Normal Blood Pressure 115/88 H Blood Pressure Mean 97 Blood Pressure Source Monitor Blood Pressure Position Semi-Fowlers Blood Pressure Location Right Arm Pulse Ox 100 Oxygen Delivery Method Room Air Weight Weight: 88.5 kg Body Mass Index (BMI) 27.2
--- NOTE | 2023-09-24 12:14 | DCINST_ITS ---
Discharge Instructions Diet Discharge Diet: No restrictions Activity Discharge Activity: Return to Normal Activity and May Not Drive (while taking narcotic pain medications.) Dressing / Incision Call your doctor if you observe: Fever of 101 or Higher Follow Up Care Please Follow Up With: Marques Elias MD When: Call [phone] for an appointment Test Results: Test results from this visit will be discussed in further detail at your follow- up appointment, if applicable. Discharge Plan Admission Primary Reason for Your Visit: Resection of bladder tumor Attending Provider: Marques Elias Primary Care Provider: Zoie Whitt Discharge Orders/Prescriptions Prescriptions: Continued finasteride 5 MG tablet 5 mg PO DAILY nadolol [Corgard] 80 MG tablet 80 mg PO DAILY lisinopril 20 MG tablet 20 mg PO DAILY omeprazole 20 MG capsule 20 mg PO DAILY PRN (Reason: indigestion) amlodipine 5 MG tablet 5 mg PO DAILY tamsulosin 0.4 MG capsule 0.4 mg PO QHS metformin 500 mg tablet extended release 24 hr 500 mg PO 1200 topiramate 25 mg tablet 25 mg PO BID rosuvastatin 5 mg tablet 5 mg PO 1200 cholecalciferol (vitamin D3) [Vitamin D3] 50 mcg (2,000 unit) capsule 50 mcg PO DAILY Referrals / Follow Up: Marques Elias MD [Med Staff - Active Staff] - Zoie Whitt DO [Primary Care Provider] - Disposition Disposition (needs filled in before D/C Order can be placed): Home, Self Care
[2023-09-24] MEDS: Cefazolin 2 GM in 0.9% Normal Saline (100mL Bag) 100 ML IV (12:27)
[2023-09-24] MEDS: Lubricating Jelly 60 GM Tube 30 GM (12:53)
--- NOTE | 2023-09-24 12:55 | PROS_PTH ---
PATHOLOGY RESULTS PATIENT: ANITA TREJO LOC: [facility] U#:[id number] AGE/SX: 82/M ROOM: [facility] RE09/24/[address]: Dr. Marques Elias MD : [id number] BED: 1 DIS: 09/26/2023 SPEC #: [id number] RECD: 09/24/23 14:01 STATUS: ROLANDO NIETOChanel #: [id number] ANGELICA: 09/24/23 12:[address]: Marques Elias DEPT: SURGICAL PATHOLOGY RECD BY: Ara Alfonso ENTERED: 09/27/23 09:38 SP TYPE: TURP OTHR DR: Dr. 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 See synoptic report below. AM:anastasiia 09/28/2023 COMMENT PROSTATE/BLADDER CANCER (TUR) SUMMARY: Procedure: Transurethral resection of prostate (TURBT) Tumor site: Not specified Histologic type: Infiltrating urothelial carcinoma with extensive squamous differentiation. Histologic grade: 3/3 Tumor configuration: Non-papillary Muscularis propria presence: Muscularis propria is present and invaded by carcinoma. Lymphvascular invasion: Not identified Tumor extension: Tumor invades the muscularis propria (detrusor muscle). Additional pathologic findings: Chronic inflammation and extensive tumor necrosis. PATHOLOGIC STAGE: T2 Nx Mx The above summary is in compliance with [employer] (CAP) Cancer Protocols Checklist and [place] [employer] Committee on Cancer (AJCC), Staging Manual, 8th Ed. Immunohistochemistry ([id number]) supports the above diagnosis. Case has been reviewed in consultation with Dr. Holm who concurs with the above diagnosis. IDC:[email or web address] MICROSCOPIC DESCRIPTION Slides are reviewed. GROSS DESCRIPTION Received is one container labeled with the patient's name and designated prostate/bladder tissue (possible tumor). The specimen consists of multiple irregular fragments of pink-ritchie, rubbery, soft tissue that in aggregate weigh 9.5 gm and measure in aggregate 4.0 x 4.0 x 1.0 cm. The entire specimen is submitted in nine cassettes. / SJ:anastasiia 09/27/2023 TC:0 CPT: 71639
--- NOTE | 2023-09-24 13:27 | PCM.OPRPT ---
Report of Operation Date of Procedure: 09/24/23 Pre-Operative Diagnosis: Large bladder tumor 5 x 6 x 7 cm Post-Operative Diagnosis: The same Surgery/Procedure Performed:: Transurethral section of large bladder tumor Description of Surgical Findings:: 82-year-old male with been having gross hematuria CT scan was done that demonstrated a tumor right at the right trigone area very large invasive looking tumor and CAT scans at today working to do a resection of his large tumor Patient was taken back to the operative room at a smooth induction of anesthesia he was placed in dorsolithotomy position the penis and testicles prepped draped in usual sterile fashion I dilated the meatus and the urethra from 24-28 Macedonian this allowed me to place a 26 Macedonian continuous-flow resectoscope into the bladder and then I resected this large invasive looking tumor on the trigone on the right base of the bladder the tumor was invasive into the muscle invasive into the bladder after the resection was completed then I put a catheter in for continuous irrigation looks like he has an invasive looking cancer possibly this could be bladder cancer possibly this could be prostate cancer or another type of invasive malignancy. We kept the continuous bladder irrigation because of the extensive mount of bleeding resection took about 45 minutes and was taken back to PACU in good condition I do not think the resection will be curative this to be mostly diagnostic and he probably will require further treatment depending on the results of the resection. Right he will stay in the hospital probably 2 or 3 days to recover. Surgeon: Marques Elias Type of Anesthesia: General Drains: 22fr 3 way Estimated Blood Loss (mL): 20cc Admit VTE Documentation VTE Present on Admission: No VTE Mechan Device Prophylaxis: SCD's VTE Pharm Prophylaxis ordered?: No
[2023-09-24 13:47] LABS: Bedside Glucose 158 mg/dL (74-106)
[2023-09-24 13:57] LABS: Bedside Glucose 146 mg/dL (74-106)
[2023-09-24] MEDS: Phenazopyridine 95 MG Tablet PO (14:09)
--- OUTSIDE RECORDS SUMMARY | 2023-09-24 16:33 | XMS RPT_ITS | CCD ---
Author Name Unknown Address [address] [place] [address] Organization [facility] Care Team Providers Care Towel Folder Name Role Phone HutchinsonJaclynKarlene N Unavailable Jasper [...] DO, DR. CORRALES Primary Care Unavailbhavesh MONTENEGRO APRN-DIAMOND FINISHING SUPERVISOR, THERESE Attending Layne ARELLANO DO, DR. CORRALES Primary Care Unavailabl e ADAN ALVAREZ, DR. CORRALES Attending Unavailabl e ADAN ALVAREZ, DR. CORRALES Primary Care Unavailabl e Allergies Allergy Classification Reported Allergen(s) Allergy Type Date of Onset Reaction(s) Facility (6 sources) bee pollen; Translations: [POLLEN] allergy to substance 4 [facility] Work Phone: (8 sources) fenofibrate; Translations: [Fenofibrate] drug allergy 5 [facility] Work Phone: (12 sources) hydroCHLOROthia zide; Translations: [Hydrochlorothi azide] drug allergy 5 [facility] Work Phone: (12 sources) niacin; Translations: [Niacin] drug allergy 5 [facility] Work Phone: (6 sources) tetracycline; Translations: [TETRACYCLINE] drug [facility] 4 [facility] Work Phone: (12 sources) traMADol; Translations: [Tramadol] drug allergy 5 [facility] Work Phone: (9 sources) Ciprofloxacin; Translations: [ciprofloxacin] Drug Allergy 1 [facility] (4 sources) Fenofibrate; Translations: [FENOFIBRATE MICRONIZED] Drug Allergy 6 [facility] (4 sources) Pollen; Translations: [POLLEN EXTRACTS] Propensity to adverse reactions to drug 1 [facility] (1 source) Amoxicillin / Clavulanate; Translations: [amoxicillin-cl avulanate] Drug Allergy 2 Nausea (finding) [facility] Medications Current Medications Medication Drug Class(es) Dates [...] as per instructions SOD PICOSULFATE-MAG OX-CIT ACD [id number] Mahnaz Gilmore Problems Active Problems Problem Classification [...] cm Ann Marie Coronado MD Work Phone: [facility] 06-14-2023 15:28-0400 Body mass index (BMI) [Ratio] 27.84 kg/m2 Ann Marie Coronado MD Work Phone: [facility] 06-14-2023 15:28-0400 Body temperature 98.2 [degF] Ann Marie Coronado MD Work Phone: [facility] 06-14-2023 15:28-0400 Body weight 88 kg Ann Marie Coronado MD Work Phone: [facility] 09-01-2022 08:55-0500 Body mass index (BMI) [Ratio] 27.94 kg/m2 Ann Marie Coronado MD Work Phone: [facility] 09-01-2022 08:55-0500 Body weight 88.31 kg Ann Marie Coronado MD Work Phone: [facility] 09-01-2022 08:55-0500 Diastolic blood pressure 76 mm[Hg] Ann Marie Coronado MD Work Phone: [facility] 09-01-2022 08:55-0500 Heart rate 61 /min Ann Marie Coronado MD Work Phone: [facility] 09-01-2022 08:55-0500 SaO2% (BldA) [Mass fraction] 98 % Ann Marie Coronado MD Work Phone: [facility] 09-01-2022 08:55-0500 Systolic blood pressure 137 mm[Hg] Ann Marie Coronado MD Work Phone: [facility] 08-04-2021 13:46-0500 Body height 177.8 cm Sarah Fuller CNP Work Phone: [facility] 08-04-2021 13:46-0500 Body mass index (BMI) [Ratio] 27.84 kg/m2 Sarah Fuller CNP Work Phone: [facility] 08-04-2021 13:46-0500 Body temperature 98.2 [degF] Sarah Fuller CNP Work Phone: [facility] 08-04-2021 13:46-0500 Body weight 88 kg Sarah Fuller CNP Work Phone: [facility] 08-04-2021 13:46-0500 Diastolic blood pressure 78 mm[Hg] Sarah Fuller DIAMOND FINISHING SUPERVISOR Work Phone: [facility] 08-04-2021 13:46-0500 Heart rate 54 /min Sarah Fuller DIAMOND FINISHING SUPERVISOR Work Phone: [facility] 08-04-2021 13:46-0500 Respiratory rate 17 /min Sarah Fuller CNP Work Phone: [facility] 08-04-2021 13:46-0500 SaO2% (BldA) [Mass fraction] 95 % Sarah Fuller DIAMOND FINISHING SUPERVISOR Work Phone: [facility] 08-04-2021 13:46-0500 Systolic blood pressure 138 mm[Hg] Sarah Fuller DIAMOND FINISHING SUPERVISOR Work Phone: [facility] 04-22-2015 15:21-0400 BMI (Body Mass Index) 28.45 kg/m2 [facility] Work Phone: 04-22-2015 15:21-0400 Body Temperature 96.8 [degF] [facility] Work Phone: 04-22-2015 15:21-0400 BP Diastolic 89 mm[Hg] [facility] Work Phone: 04-22-2015 15:21-0400 BP Systolic 169 mm[Hg] [facility] Work Phone: 04-22-2015 15:21-0400 BSA (Body Surface Area) 2.18 m2 [facility] Work Phone: 04-22-2015 15:21-0400 Pulse (Heart Rate) 60 /min [facility] Work Phone: 04-22-2015 15:21-0400 Respiratory Rate 16 /min [facility] Work Phone: 04-22-2015 15:21-[address] [facility] Work Phone: 10-17-2013 11:22-[address] [facility] Work Phone: Encounters Encounter Date Encounter Type Care Provider Facility Start: 06-14-2023 End: 06-14-2023 Office outpatient visit 10 minutes Ann Marie Coronado MD Work Phone: [facility] Procedures Date Procedure Procedure Detail Performing Clinician Start: 08-04-2021 Gluc bld gluc mntr d ev cleared fda spec home use Sarah Fuller DIAMOND FINISHING SUPERVISOR Work Phone: Start: 08-04-2021 Ecg routine ecg w/le ast 12 lds i&r only Sarah Ramirezchay DIAMOND FINISHING SUPERVISOR Work Phone: Start: 01-18-2019 Antibody screen Plan of Treatment Date Care Activity Detail Author Start: 06-02-2023 End: 06-02-2023 Patient encounter procedure 06/02/2023 Office Visit Otolaryngology Ann Marie Coronado MD [address] [place] [address] [facility] Start: 05-07-2023 COVID-19 Vaccine ( season) COVID-19 Vaccine ( season) [facility] Start: 05-07-2022 Influenza vaccination Sequential Influenza Vaccine (#1) [facility] Start: 03-06-2022 COVID-19 Vaccine (5 - Booster for Moderna series) COVID-19 Vaccine (5 - Booster for Moderna series) [facility] Start: 04-29-2021 COVID-19 Vaccine (3 - Booster for Moderna series) COVID-19 Vaccine (3 - Booster for Moderna series) [facility] Start: 07-21-2019 Hemoglobin A1c measurement A1C [facility] Start: 04-07-2017 End: 04-07-2017 Physical Therapy General Physical Therapy [facility], [address] [place] [address], [id number] [facility] Work Phone: Start: 04-01-2017 End: 04-01-2017 X-ray exam l-s spine bending X-Ray, Spine, Lumbar, complete with bending views [facility] Work Phone: Start: 04-09-2016 End: 04-09-2016 X-ray exam of hand X-Ray, Hand [facility] Work Phone: Start: 04-22-2015 End: 04-22-2015 Diagnostic colonoscopy Colonoscopy [facility] Work Phone: Start: 09-26-2014 End: 09-26-2014 Chest x-ray 4/> views Chest XRAY [facility] Work Phone: Start: 09-26-2014 End: 09-26-2014 Contrast x-ray exam of colon Barium Enema [facility] Work Phone: Start: 06-26-2014 End: 06-26-2014 Mri joint upr extrem w/o dye MRI Joint Upper Extremity [facility] Work Phone: Start: 06-26-2014 End: 06-26-2014 X-ray exam of shoulder X-Ray, Shoulder [facility] Work Phone: Start: 2006 Fall risk assessment Falls Risk Assessment [facility] Start: 2006 Pneumococcal Vaccine: Age 65+ (1 of 1 - PPSV23) Pneumococcal Vaccine: Age 65+ (1 of 1 - PPSV23) [facility] Start: 1991 Administration of herpes zoster vaccine Zoster Vaccines (1 of 2) [facility] Start: 1960 Administration of herpes zoster vaccine Zoster Vaccines (1 of 2) [facility] Start: 1959 Hepatitis C screening Hepatitis C Screening [facility] Start: 1953 Depression screening using PHQ-9 (Patient Health Questionnaire 9) score Depression Screening (PHQ-2/9) [facility] Start: 1951 Diabetic foot examination Foot Exam [facility] Start: 1951 Glaucoma screening [facility] Start: 1951 Urine screening for protein Urine Microalbumin [facility] Start: 1947 Pneumococcal Vaccine: Age 65+ (1 - PCV) Pneumococcal Vaccine: Age 65+ (1 - PCV) [facility] Start: 1944 History and physical examination, annual for health maintenance Wellness Visit [facility] Start: 1941 Tetanus vaccination Tetanus: Every 10yrs [facility] Patient Education Medications [facility] Work Phone: Immunizations Immunization Date Immunization Notes Care Provider Reyes mitchell 06-16-2022 influenza, high dose seasonal, preservative-free DR ANTONI ARELLANO DO [facility] 01-09-2022 COVID-19, mRNA, LNP- S, PF, 100 mcg or 50 mcg dose; Translations: [Moderna COVID-19 Vaccine] DR ANTONI ARELLANO DO [facility] 07-25-2021 COVID-19, mRNA, LNP- S, PF, 100 mcg or 50 mcg dose; Translations: [Moderna COVID-19 Vaccine] DR ANTONI ARELLANO DO [facility] 05-13-2021 influenza virus vaccine, unspecified formulation DR ANTONI ARELLANO DO [facility] Payers Date Payer Category Payer Medicare MMO [facility] MANAGED MEDICARE HMO [id number] 2020-Present [phone] [address] [place] [address] [id number] 2016 Medicare [id number] 1941 Unknown [id number] 1941 Unknown [id number] 1941 Unknown [id number] 1941 Unknown [id number] 1941 Unknown [id number] Social History Date Type Detail Facility Start: 03-16-2019 Never smoked tobacco (f inding) [facility] Clinical Notes 12-24-2020 to 06-14-2023 Ann Marie Coronado MD - 06/14/2023 3:59 PM Melia Hall MA - 06/14/2023 3:27 PM Bella Coronado MD - 09/01/2022 9:03 AM Kevin Chapman LPN - 09/01/2022 8:51 AM ESTLaboratory Note Date & Type Note Facility 06-14-2023 History of Present illness Narrative [facility] [address] [facility] [place] [address] [facility] [address] Dept: [phone] MD Barrington Barcenas 82 y.o. male Patient [...] Negative. Psychiatric/Behavioral: Negative. documented in this encounter [facility] 09-01-2022 History of Present illness Narrative [facility] [address] [facility] [place] [address] [facility] [address] Dept: [phone] MD Barrington Barcenas 81 y.o. male Patient [...] of submandibular glands, clear salivary flow from La Paz's ducts, no stones of [place] Paz's ducts Temporomandibular Joint: no crepitus with motion, [...] headaches. Psychiatric/Behavioral: Negative. documented in this encounter [facility] 02-07-2022 HCoV 229E RNA YASMINE+non-probe Ql (Nph) [...] Q-T Interval (corrected) QTC Calculation (Bezet) P Washington R Washington T Washington IMPRESSION/PLAN: 80 y.o. male being seen today [...] the referring physician. documented in this encounter [facility] 01-24-2021 Note HNO ID: [id number] Author: Teddy Cruz Service: ? Author Type: Sewing Machine Operator Paper Bags Type: Progress Notes Filed: 01/24/2021 4:15 PM [...] DATE: January 24, 2021 TIME: 4:14 PM [facility] 01-10-2021 Note HNO ID: [id number] Author: Mark Leary MD Service: ? Author Type: Physician Type: Progress Notes Filed: 01/10/2021 2:18 PM Note Text: DEPARTMENT OF GASTROENTEROLOGY - FOLLOW UP VISIT HISTORY OF PRESENT ILLNESS Barrington Trejo is a 80 year old male who presents today for follow up of left lower quadrant abdominal pain that developed last week. Seen by OPERATING ENGINEER APPRENTICE, given amoxicillin x 4 days, without improvement, [...] in no acute distress Assessment IMPRESSION Mr. Trejo is a 80 year old year old male who presents with LLQ abdominal pain. Need to rule out diverticulitis. PLAN ASSESSMENT/PLAN: 1. Left lower quadrant abdominal pain - ICD9: 789.04, ICD10: R10.32 - CT ABD/PEL W IVCON - CREATININE BLD Plan is to follow up as needed (prn). Mark Leary MD January 10, 2021 2:10 PM [facility] 12-24-2020 Note HNO ID: [id number] Author: Mark Leary Service: ? Author Type: [...] Laterality Date - COLONOSCOP W/ OR W/O [facility] SPEC 09/23/2016 Colonoscopy mac - COLONOSCOPY 2004 [...] bleeding: no Depression (more content not included)... [facility] Evaluation + Plan note Future Appointments Appointment Date:09/30/2021 02:20:00 PM Scheduled Provider:ANTONI ARELLANO DO Location:[place] Appointment Type:PC OV Future Scheduled TestsThyroid Stimulating Hormone 10/02/21A1C Hemoglobin 10/02/21Complete Blood Count 10/02/21Lipid Profile 10/02/21Complete Metabolic Panel 10/02/21 [facility] Evaluation + Plan note Future Appointments Appointment Date:09/30/2021 02:20:00 PM Scheduled Provider:ANTONI ARELLANO DO Location:[place] Appointment Type:PC OV [facility] Evaluation + Plan note Future Appointments Appointment Date:04/16/2022 11:30:00 AM Scheduled Provider:ANTONI ARELLANO DO Location:[place] Appointment Type:PC OV Future Scheduled TestsProstate Specific Antigen 04/11/22Thyroid Stimulating Hormone 04/11/22A1C Hemoglobin 04/11/22Complete Blood Count 04/11/22Lipid Profile 04/11/22Complete Metabolic Panel 04/11/22XR Sacroiliac Joints Minimum 3 Views 01/09/22XR Spine Lumbar AP/LAT 01/09/22 [facility] Evaluation + Plan note Future Appointments Appointment Date:01/15/2023 11:30:00 AM Scheduled Provider:ANTONI ARELLANO DO Location:[place] Appointment Type:PC OV Future Scheduled TestsThyroid Stimulating Hormone 07/17/22Complete Blood Count 07/17/22Lipid Profile 07/17/22Complete Metabolic Panel 07/17/22XR Sacroiliac Joints Minimum 3 Views 01/09/22XR Spine Lumbar AP/LAT 01/09/22 [facility] Bilateral impacted cerumen- Primary Impacted cerumen 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 hearing loss, bilateral [facility] Bilateral impacted cerumen- Primary Impacted cerumen Disorder of both eustachian tubes Tympanosclerosis of left ear documented in this encounter [facility] course Narrative No data available for this section [facility] Hospital Discharge instructions No data available for this section [facility] Progress note No data available for this section [facility] Summary Purpose Family History No Family History Records FoundNo Family History Records FoundNo Family History Records FoundNo Family History Records FoundNo Family History Records Found Advance Directives Documents on File Type Date Recorded Patient Engraver Wood Expl anation Advance Directives and Living Will Procedure Findings Note HNO ID: [id number] Author: Ernie Earl Service: Orthopaedic Surgery Author Type: Physician Type: Operative Report Filed: 02/03/2019 10:57 AM Note Text: OPERATIVE NOTE PATIENT NAME: Barrington Trejo LOG ID: [id number] Surgery Date: 02/03/2019 Surgeon(s) and Nurse Practitioner Physician Assistant(s): Surgeon(s) and Role: * Tacos Earl - Primary Physician Nurse Practitioner Physician Assistant: Alis Lama (Pa) Game Artist: Lamar Magaña Procedure(s): Procedure(s) (LRB): ARTHROPLASTY REPLACE [...] (more content not included)... Note HNO ID: [id number] Author: Aleksandr condon Jr (Res) [employer] Service: [...] not included)... 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 [...] DATE CREATED AUTHOR AUTHOR'S ORGANIZ ATION 02/14/2019 [facility] DATE CREATED AUTHOR AUTHOR'S ORGANIZ ATION 10/29/2021 [facility] DATE CREATED AUTHOR AUTHOR'S ORGANIZ ATION 09/01/2022 [facility] DATE CREATED AUTHOR AUTHOR'S ORGANIZ ATION 09/08/2022 [facility] ([place]) Reason for Visit (unrecogniz ed section and content) Reason Comments Cerumen Impaction New pt Reason Comments Follow-up 9 mth ear cleaning Care Teams (unrecognized sec tion and content) Towel Folder Relationship Specialty Start Date End Date No, Physician [facility] PCP - General 08/04/21 Towel Folder Relationship Specialty Start Date End Date No, Physician [facility] PCP - General 08/04/21 Care Team (unrecognized sect ion and content) Care Team Personnel Name: ADAN ANTONI DO Position: P4 Physician - Primary Care Member Role: Primary Care Physician Address: Address: [address] [place] [id number] [place] [address] Care Team Related Persons Name: HILDA TREJO [...] BE BASED ON THE PRIMARY CLINICAL RECORDS. [facility] [employer] [facility]. provides no warranty or guarantee of the accuracy or completeness of information in this document.
[2023-09-24] MEDS: 0.9% Normal Saline (1000mL) 1,000 ML 50 ML IV (18:51)
[2023-09-24] MEDS: Cefazolin 1 GM/50 ML BAG IV (20:03)
[2023-09-24] MEDS: Tamsulosin HCl 0.4 MG Capsule 0.400000000000000022 MG PO (21:50)
[2023-09-24] MEDS: Topiramate 25 MG Tablet PO (21:50)
[2023-09-24] MEDS: Docusate Sodium 100 MG Capsule 200 MG PO (21:50)
[2023-09-25] VITALS (8 sets, daily range): BP systolic 116–133; BP diastolic 59–66; PULSE 59–71; RESP 16–18; TEMP 36.3–36.9; O2SAT 96–100; BMI 27.6
[2023-09-25] MEDS: oxyCODONE 5 MG Tablet PO (03:03)
[2023-09-25] MEDS: Acetaminophen 325 MG Tablet PO ×3 (03:03→21:42)
[2023-09-25] MEDS: Cefazolin 1 GM/50 ML BAG IV ×3 (05:18→21:41)
--- NOTE | 2023-09-25 08:46 | PCM.PN.GU ---
Subjective Subjective Status post resection of invasive looking large bladder mass appears to be bladder cancer today spoke frankly to the patient about the situation. Pathology report is pending we will keep him 1 more night for observation and he can go home tomorrow with a catheter to let it heal for 1 week had to do a very deep resection so explained to the patient he will need to go home with a catheter because of the very deep resection but despite this that he still has invasive cancer Objective Data Objective Data Vital Signs: Vital Signs Temp Pulse Resp BP Pulse Ox O2 Del Method 97.9 F 64 16 124/66 H 96 Room Air 09/25/23 05:14 09/25/23 05:14 09/25/23 05:14 09/25/23 05:14 09/25/23 05:14 09/25/23 05:14 Oxygen Delivery Method Room Air Weight: 88.5 kg Body Mass Index (BMI) 27.6 Intake & Output: Intake and Output for Last 24 Hours 09/23/23 09/24/23 09/25/23 23:59 23:59 23:59 Intake Total 982.08 / 982.08 723.33 / 723.33 Output Total 900 / 900 1100 / 1100 Balance 82.08 / 82.08 -376.67 / -376.67 Lab / Micro Data Labs: Laboratory Results - last 24 hr 09/24/23 11:39: POC Glucose 158 H 09/24/23 13:39: POC Glucose 146 H Micro: Microbiology 09/20/23 13:11 Urine, Clean Catch Urine Culture - Final Culture exhibits no growth.
[2023-09-25] MEDS: Nadolol 40 MG Tablet 80 MG PO (09:48)
[2023-09-25] MEDS: Topiramate 25 MG Tablet PO ×2 (09:49→21:41)
[2023-09-25] MEDS: Lisinopril 20 MG Tablet PO (09:49)
[2023-09-25] MEDS: Docusate Sodium 100 MG Capsule 200 MG PO ×2 (09:49→21:41)
[2023-09-25] MEDS: amLODIPine 5 MG Tablet PO (09:49)
[2023-09-25] MEDS: Finasteride 5 MG Tablet PO (09:50)
[2023-09-25] MEDS: Pantoprazole Sodium 20 MG Tablet PO (09:54)
[2023-09-25] MEDS: metFORMIN (XR) 500 MG Tablet PO (12:02)
[2023-09-25] MEDS: Atorvastatin Calcium 10 MG Tablet PO (12:03)
--- NOTE | 2023-09-25 15:16 | CASEMGMT ---
MELLISA MALONEY in to complete LUTZ Form. RN AMARA explained LUTZ Form, patient voiced understanding. Patient signed LUTZ Form and filed in chart. Patient provided copy of signed LUTZ Form. Patient had no further questions or concerns.
[2023-09-25] MEDS: Tamsulosin HCl 0.4 MG Capsule 0.400000000000000022 MG PO (21:43)
[2023-09-26] MEDS: oxyCODONE 5 MG Tablet PO (00:23)
[2023-09-26 04:00] VITALS: BP 131/73; PULSE 69; RESP 16; TEMP 36.9; O2SAT 97
[2023-09-26] MEDS: Cefazolin 1 GM/50 ML BAG IV (05:53)
[2023-09-26 10:00] VITALS: BP 151/78; PULSE 73; RESP 16; TEMP 36.7; O2SAT 100
[2023-09-26 10:09] VITALS: BP 133/74; PULSE 73; RESP 16; TEMP 36.7; O2SAT 100
[2023-09-26] MEDS: amLODIPine 5 MG Tablet PO (10:14)
[2023-09-26] MEDS: Lisinopril 20 MG Tablet PO (10:14)
[2023-09-26] MEDS: Docusate Sodium 100 MG Capsule 200 MG PO (10:14)
[2023-09-26] MEDS: Finasteride 5 MG Tablet PO (10:14)
[2023-09-26] MEDS: Topiramate 25 MG Tablet PO (10:15)
[2023-09-26] MEDS: Nadolol 40 MG Tablet 80 MG PO (10:15)
== END 2023-09-26 10:49 | disposition home or self-care (01) ==
LOC: SDC 16:26 → MS3 16:26
PROVIDERS: Admitting Provider Urology; Referring Provider Urology; Visit Provider Urology
PROC: (CPT 52240; principal; 2023-09-24 12:45)
DX: C61 Malignant neoplasm of prostate (principal); E11.40 Type 2 diabetes mellitus with diabetic neuropathy, unspecified; I10 Essential (primary) hypertension; Z79.84 Long term (current) use of oral hypoglycemic drugs; E78.00 Pure hypercholesterolemia, unspecified; Z79.899 Other long term (current) drug therapy; Z86.718 Personal history of other venous thrombosis and embolism; K21.9 Gastro-esophageal reflux disease without esophagitis; N40.1 Benign prostatic hyperplasia with lower urinary tract symptoms; N13.8 Other obstructive and reflux uropathy
CPT/HCPCS: 52240; 82962; 87086; 88305; 88341; 88342; 93005; 96365; 96366; 99221; J7030; J7120; G0378; J2405

== ENCOUNTER → 2023-10-12 | Outpatient (CLI) | payer MEDICARE, SELFPAY ==
[2023-10-12 12:08] LABS: Absolute Lymphocyte Count 1.96 X10^3/uL (0.83-4.51); Absolute Neutrophil Count 4.4 X10^3/uL (2.0-7.7); Basophil# 0.08 X10^3/uL; Basophil% 1.1 % (0-1); Eosinophil# 0.33 X10^3/uL; Eosinophils% 4.4 % (0-5); Hematocrit 39.6 % (40-54); Hemoglobin 12.6 g/dL (13.0-16.5); Lymphocyte # 1.96 X10^3/ul (0.83-4.51); Lymphocyte % 26.1 % (19-41); Mean Corp Hgb Conc 31.8 g/dL (32-36); Mean Corpuscular Hgb 28.5 pg (27.0-32.0); Mean Corpuscular Volume 89.6 fL (80-94); Mean Platelet Vol. 11.1 fl (6.2-12.0); Monocyte# 0.68 X10^3/uL; Monocyte% 9.1 % (0-10); NRBC Flagged by Analyzer 0 % (0-5); Neutrophil # 4.39 X10^3/uL (2.7-7.7); Neutrophil % 58.5 % (47-70); Platelet Count 191 K/mm3 (150-450); RBC Distribution Width CV 13.4 % (11.6-14.6); RBC Distribution Width SD 43.7 fl (35.1-43.9); Red Blood Count 4.42 M/mm3 (4.6-6.2); White Blood Count 7.5 K/mm3 (4.4-11.0)
[2023-10-12 12:23] LABS: AST(SGOT) 15 U/L (15-37); Alanine Aminotransfer ALT/SGPT 24 U/L (16-61); Albumin, Serum 3.7 g/dL (3.2-5.0); Alkaline Phosphatase 89 U/L (45-117); Anion Gap 2 (5-15); BUN 16 mg/dL (7-18); BUN/Creat Ratio 16.9 RATIO (10-20); Calcium,Total 9.6 mg/dL (8.5-10.1); Chloride 106 mmol/L (98-107); Creatinine, Serum 0.95 mg/dL (0.70-1.30); EST Glomerular Filtration Rate 81 mL/min (>60); Est Glom Filt Rate - Afr Amer 98 mL/min (>60); Globulin 3.7 g/dL (2.2-4.2); Glucose 260 mg/dL (74-106); LDH 145 U/L (87-241); Magnesium 2.2 mg/dL (1.6-2.6); Phosphorus 2.8 mg/dL (2.5-4.9); Protein, Total 7.4 g/dL (6.4-8.2); Sodium Level 134 mmol/L (136-145)
--- OUTSIDE RECORDS SUMMARY | 2023-10-12 16:03 | XMS RPT_ITS | CCD ---
Author Name Unknown Address [address] [place] [address] Organization [facility] Care Team Providers Care Blade Boner Name Role Phone HutchinsonJaclynKarlene N Unavailable Jasper [...] Care Unavailbhavesh ARELLANO DO, DR. CORRALES Attending Edward ARELLANO DO, DR. CORRALES Attending Unavailbhavesh ARELLANO DO, DR. CORRALES Primary Care Unavailbhavesh MONTENEGRO APRN-CLINICAL QUALITY ANALYST, THERESE Attending Layne ARELLANO DO, DR. CORRALES Primary Care Unavailabl keesha ARELLANO DO, DR. CORRALES Attending Unavailabl e ADAN ALVAREZ, DR. CORRALES Primary Care Unavailabl e Allergies Allergy Classification Reported Allergen(s) Allergy Type Date of Onset Reaction(s) Facility (6 sources) bee pollen; Translations: [POLLEN] allergy to substance 4 [facility] Work Phone: (8 sources) fenofibrate; Translations: [Fenofibrate] drug allergy 5 [facility] Work Phone: (12 sources) hydroCHLOROthia zide; Translations: [Hydrochlorothi azide] drug allergy 5 [facility] Work Phone: (12 sources) niacin; Translations: [Niacin] drug allergy 5 [facility] Work Phone: (6 sources) tetracycline; Translations: [TETRACYCLINE] drug allergy 4 [facility] Work Phone: (12 sources) traMADol; Translations: [Tramadol] drug allergy 5 [facility] Work Phone: (9 sources) Ciprofloxacin; Translations: [ciprofloxacin] Drug Allergy 1 [facility] (4 sources) Fenofibrate; Translations: [FENOFIBRATE MICRONIZED] Drug Allergy 6 [facility] (4 sources) Pollen; Translations: [POLLEN EXTRACTS] Propensity to adverse reactions to drug 1 [facility] (1 source) Amoxicillin / Clavulanate; Translations: [amoxicillin-cl avulanate] Drug Allergy 2 Nausea (finding) [facility] Medications Current Medications Medication Drug Class(es) [...] as per instructions SOD PICOSULFATE-MAG OX-CIT ACD [id number] Mahnaz Gilmore Problems Active Problems Problem Classification [...] cm Ann Marie Coronado MD Work Phone: [facility] 06-14-2023 15:28-0400 Body mass index (BMI) [Ratio] 27.84 kg/m2 Ann Marie Coronado MD Work Phone: [facility] 06-14-2023 15:28-0400 Body temperature 98.2 [degF] Ann Marie Coronado MD Work Phone: [facility] 06-14-2023 15:28-0400 Body weight 88 kg Ann Marie Coronado MD Work Phone: [facility] 09-01-2022 08:55-0500 Body mass index (BMI) [Ratio] 27.94 kg/m2 Ann Marie Coronado MD Work Phone: [facility] 09-01-2022 08:55-0500 Body weight 88.31 kg Ann Marie Coronado MD Work Phone: [facility] 09-01-2022 08:55-0500 Diastolic blood pressure 76 mm[Hg] Ann Marie Coronado MD Work Phone: [facility] 09-01-2022 08:55-0500 Heart rate 61 /min Ann Marie Coronado MD Work Phone: [facility] 09-01-2022 08:55-0500 SaO2% (BldA) [Mass fraction] 98 % Ann Marie Coronado MD Work Phone: [facility] 09-01-2022 08:55-0500 Systolic blood pressure 137 mm[Hg] Ann Marie Coronado MD Work Phone: [facility] 08-04-2021 13:46-0500 Body height 177.8 cm Sarah Fuller CNP Work Phone: [facility] 08-04-2021 13:46-0500 Body mass index (BMI) [Ratio] 27.84 kg/m2 Sarah Fuller CNP Work Phone: [facility] 08-04-2021 13:46-0500 Body temperature 98.2 [degF] Sarah Fuller CNP Work Phone: [facility] 08-04-2021 13:46-0500 Body weight 88 kg Sarah Fuller CNP Work Phone: [facility] 08-04-2021 13:46-0500 Diastolic blood pressure 78 mm[Hg] Sarah Fuller CLINICAL QUALITY ANALYST Work Phone: [facility] 08-04-2021 13:46-0500 Heart rate 54 /min Sarah Fuller CLINICAL QUALITY ANALYST Work Phone: [facility] 08-04-2021 13:46-0500 Respiratory rate 17 /min Sarah Fuller CNP Work Phone: [facility] 08-04-2021 13:46-0500 SaO2% (BldA) [Mass fraction] 95 % Sarah Fuller CLINICAL QUALITY ANALYST Work Phone: [facility] 08-04-2021 13:46-0500 Systolic blood pressure 138 mm[Hg] Sarah Fuller CLINICAL QUALITY ANALYST Work Phone: [facility] 04-22-2015 15:21-0400 BMI (Body Mass Index) 28.45 kg/m2 [facility] Work Phone: 04-22-2015 15:21-0400 Body Temperature 96.8 [degF] [facility] Work Phone: 04-22-2015 15:21-0400 BP Diastolic 89 mm[Hg] [facility] Work Phone: 04-22-2015 15:21-0400 BP Systolic 169 mm[Hg] [facility] Work Phone: 04-22-2015 15:21-0400 BSA (Body Surface Area) 2.18 m2 [facility] Work Phone: 04-22-2015 15:21-0400 Pulse (Heart Rate) 60 /min [facility] Work Phone: 04-22-2015 15:21-0400 Respiratory Rate 16 /min [facility] Work Phone: 04-22-2015 15:21-[address] [facility] Work Phone: 10-17-2013 11:22-0500 Height 182.88 cm [facility] Work Phone: Encounters Encounter Date Encounter Type Care Provider Facility Start: 06-14-2023 End: 06-14-2023 Office outpatient visit 10 minutes Ann Marie Coronado MD Work Phone: [facility] Procedures Date Procedure Procedure Detail Performing Clinician Start: 08-04-2021 Gluc bld gluc mntr d ev cleared fda spec home use Sarah Fuller CLINICAL QUALITY ANALYST Work Phone: Start: 08-04-2021 Ecg routine ecg w/le ast 12 lds i&r only Sarah Ramirezchay CLINICAL QUALITY ANALYST Work Phone: Start: 01-18-2019 Antibody screen Plan of Treatment Date Care Activity Detail Author Start: 06-02-2023 End: 06-02-2023 Patient encounter procedure 06/02/2023 Office Visit Otolaryngology Ann Marie Coronado MD [address] [place] [address] [facility] Start: 05-07-2023 COVID-19 Vaccine ( season) COVID-19 Vaccine ( season) [facility] Start: 05-07-2022 Influenza vaccination Sequential Influenza Vaccine (#1) [facility] Start: 03-06-2022 COVID-19 Vaccine (5 - Booster for Moderna series) COVID-19 Vaccine (5 - Booster for Moderna series) [facility] Start: 04-29-2021 COVID-19 Vaccine (3 - Booster for Moderna series) COVID-19 Vaccine (3 - Booster for Moderna series) [facility] Start: 07-21-2019 Hemoglobin A1c measurement A1C [facility] Start: 04-07-2017 End: 04-07-2017 Physical Therapy General Physical Therapy [facility], [address] [place] [address], [id number] [facility] Work Phone: Start: 04-01-2017 End: 04-01-2017 X-ray exam l-s spine bending X-Ray, Spine, Lumbar, complete with bending views [facility] Work Phone: Start: 04-09-2016 End: 04-09-2016 X-ray exam of hand X-Ray, Hand [facility] Work Phone: Start: 04-22-2015 End: 04-22-2015 Diagnostic colonoscopy Colonoscopy [facility] Work Phone: Start: 09-26-2014 End: 09-26-2014 Chest x-ray 4/> views Chest XRAY [facility] Work Phone: Start: 09-26-2014 End: 09-26-2014 Contrast x-ray exam of colon Barium Enema [facility] Work Phone: Start: 06-26-2014 End: 06-26-2014 Mri joint upr extrem w/o dye MRI Joint Upper Extremity [facility] Work Phone: Start: 06-26-2014 End: 06-26-2014 X-ray exam of shoulder X-Ray, Shoulder [facility] Work Phone: Start: 2006 Fall risk assessment Falls Risk Assessment [facility] Start: 2006 Pneumococcal Vaccine: Age 65+ (1 of 1 - PPSV23) Pneumococcal Vaccine: Age 65+ (1 of 1 - PPSV23) [facility] Start: 1991 Administration of herpes zoster vaccine Zoster Vaccines (1 of 2) [facility] Start: 1960 Administration of herpes zoster vaccine Zoster Vaccines (1 of 2) [facility] Start: 1959 Hepatitis C screening Hepatitis C Screening [facility] Start: 1953 Depression screening using PHQ-9 (Patient Health Questionnaire 9) score Depression Screening (PHQ-2/9) [facility] Start: 1951 Diabetic foot examination Foot Exam [facility] Start: 1951 Glaucoma screening [facility] Start: 1951 Urine screening for protein Urine Microalbumin [facility] Start: 1947 Pneumococcal Vaccine: Age 65+ (1 - PCV) Pneumococcal Vaccine: Age 65+ (1 - PCV) [facility] Start: 1944 History and physical examination, annual for health maintenance Wellness Visit [facility] Start: 1941 Tetanus vaccination Tetanus: Every 10yrs [facility] Patient Education Medications [facility] Work Phone: Immunizations Immunization Date Immunization Notes Care Provider Reyes mitchell 06-16-2022 influenza, high dose seasonal, preservative-free DR ANTONI ARELLANO DO [facility] 01-09-2022 COVID-19, mRNA, LNP- S, PF, 100 mcg or 50 mcg dose; Translations: [Moderna COVID-19 Vaccine] DR ANTONI ARELLANO DO [facility] 07-25-2021 COVID-19, mRNA, LNP- S, PF, 100 mcg or 50 mcg dose; Translations: [Moderna COVID-19 Vaccine] DR ANTONI ARELLANO DO [facility] 05-13-2021 influenza virus vaccine, unspecified formulation DR ANTONI ARELLANO DO [facility] Payers Date Payer Category Payer Medicare MMO [facility] [employer] MEDIC[facility] HMO [id number] 2020-Present [phone] [address] [place] [address] [id number] 2016 Medicare [id number] 1941 Unknown [id number] 1941 Unknown [id number] 1941 Unknown [id number] 1941 Unknown [id number] 1941 Unknown [id number] Social History Date Type Detail Facility Start: 03-16-2019 Never smoked tobacco (f inding) [facility] Clinical Notes 12-24-2020 to 06-14-2023 Ann Marie Coronado MD - 06/14/2023 3:59 PM Melia Hall MA - 06/14/2023 3:27 PM Bella Coronado MD - 09/01/2022 9:03 AM Kevin Chapman LPN - 09/01/2022 8:51 AM ESTLaboratory Note Date & Type Note Facility 06-14-2023 History of Present illness Narrative [facility] [address] [facility] [address] [facility] [id number] Dept: [phone] MD Barrington Barcenas 82 y.o. male Patient [...] COLONOSCOPY W/ BIOPSIES AND POLYPECTOMY 09/23/2016 Dr. Wnyne ESOPHAGOGASTRODUODENOSCOPY 01/19/2017 ESOPHAGOGASTRODUODENOSCOPY 01/07/2021 lower lid surgery [...] Negative. Psychiatric/Behavioral: Negative. documented in this encounter [facility] 09-01-2022 History of Present illness Narrative [facility] [address] [facility] [address] [facility] [id number] Dept: [phone] MD Barrington Barcenas 81 y.o. male Patient [...] of submandibular glands, clear salivary flow from Seminole's ducts, no stones of Seminole's ducts Temporomandibular Joint: no crepitus with motion, [...] headaches. Psychiatric/Behavioral: Negative. documented in this encounter [facility] 02-07-2022 HCoV 229E RNA YASMINE+non-probe Ql (Nph) [...] Q-T Interval (corrected) QTC Calculation (Bezet) P [place] R [place] T [place] IMPRESSION/PLAN: 80 y.o. male being seen today [...] the referring physician. documented in this encounter [facility] 01-24-2021 Note HNO ID: [id number] Author: Teddy Cruz Service: ? Author Type: Insurance Claims Representative Type: Progress Notes Filed: 01/24/2021 4:15 PM [...] DATE: January 24, 2021 TIME: 4:14 PM [facility] 01-10-2021 Note HNO ID: [id number] Author: Mark Leary MD Service: ? Author Type: Physician Type: Progress Notes Filed: 01/10/2021 2:18 PM Note Text: DEPARTMENT OF GASTROENTEROLOGY - FOLLOW UP VISIT HISTORY OF PRESENT ILLNESS Barrington Trejo is a 80 year old male who presents today for follow up of left lower quadrant abdominal pain that developed last week. Seen by LABORATORY ENGINEER, given amoxicillin x 4 days, without improvement, [...] Leary MD January 10, 2021 2:10 PM [facility] 12-24-2020 Note HNO ID: [id number] Author: Mark Leary Service: ? Author Type: [...] Laterality Date - COLONOSCOP W/ OR W/O [facility] SPEC 09/23/2016 Colonoscopy mac - COLONOSCOPY 2004 [...] bleeding: no Depression (more content not included)... [facility] Evaluation + Plan note Future Appointments Appointment Date:09/30/2021 02:20:00 PM Scheduled Provider:ANTONI ARELLANO DO Location:[facility] Appointment Type:PC OV Future Scheduled TestsThyroid Stimulating Hormone 10/02/21A1C Hemoglobin 10/02/21Complete Blood Count 10/02/21Lipid Profile 10/02/21Complete Metabolic Panel 10/02/21 [facility] Evaluation + Plan note Future Appointments Appointment Date:09/30/2021 02:20:00 PM Scheduled Provider:ANTONI ARELLANO DO Location:[facility] Appointment Type:PC OV [facility] Evaluation + Plan note Future Appointments Appointment Date:04/16/2022 11:30:00 AM Scheduled Provider:ANTONI ARELLANO DO Location:[facility] Appointment Type:PC OV Future Scheduled TestsProstate Specific Antigen 04/11/22Thyroid Stimulating Hormone 04/11/22A1C Hemoglobin 04/11/22Complete Blood Count 04/11/22Lipid Profile 04/11/22Complete Metabolic Panel 04/11/22XR Sacroiliac Joints Minimum 3 Views 01/09/22XR Spine Lumbar AP/LAT 01/09/22 [facility] Evaluation + Plan note Future Appointments Appointment Date:01/15/2023 11:30:00 AM Scheduled Provider:ANTONI ARELLANO DO Location:[facility] Appointment Type:PC OV Future Scheduled TestsThyroid Stimulating Hormone 07/17/22Complete Blood Count 07/17/22Lipid Profile 07/17/22Complete Metabolic Panel 07/17/22XR Sacroiliac Joints Minimum 3 Views 01/09/22XR Spine Lumbar AP/LAT 01/09/22 [facility] Bilateral impacted cerumen- Primary Impacted cerumen 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 hearing loss, bilateral [facility] Bilateral impacted cerumen- Primary Impacted cerumen Disorder of both eustachian tubes Tympanosclerosis of left ear documented in this encounter [facility] course Narrative No data available for this section [facility] Hospital Discharge instructions No data available for this section [facility] Progress note No data available for this section [facility] Summary Purpose Family History No Family History Records FoundNo Family History Records FoundNo Family History Records FoundNo Family History Records FoundNo Family History Records Found Advance Directives Documents on File Type Date Recorded Patient Back Sizer Expl anation Advance Directives and Living Will Procedure Findings Note HNO ID: [id number] Author: Ernie Earl Service: Orthopaedic Surgery Author Type: Physician Type: Operative Report Filed: 02/03/2019 10:57 AM Note Text: OPERATIVE NOTE PATIENT NAME: Barrington Trejo LOG ID: [id number] Surgery Date: 02/03/2019 Surgeon(s) and Water Hauler(s): Surgeon(s) and Role: * Tacos Earl - Primary Physician Water Hauler: Alis Lama (Pa) Appraisal Coordinator: Lamar Magaña Procedure(s): Procedure(s) (LRB): ARTHROPLASTY REPLACE [...] (more content not included)... Note HNO ID: [id number] Author: Aleksandr condon Jr (Res) [employer] Service: [...] not included)... Hospital Course Note HNO ID: [id number] Author: Aleksandr condon Jr (Res) [employer] Service: [...] DATE CREATED AUTHOR AUTHOR'S ORGANIZ ATION 02/14/2019 [facility] DATE CREATED AUTHOR AUTHOR'S ORGANIZ ATION 10/29/2021 [facility] DATE CREATED AUTHOR AUTHOR'S ORGANIZ ATION 09/01/2022 [facility] DATE CREATED AUTHOR AUTHOR'S ORGANIZ ATION 09/08/2022 [facility] ([place]) Reason for Visit (unrecogniz ed section and content) Reason Comments Cerumen Impaction New pt Reason Comments Follow-up 9 mth ear cleaning Care Teams (unrecognized sec tion and content) Blade Boner Relationship Specialty Start Date End Date No, Physician [facility] PCP - General 08/04/21 Blade Boner Relationship Specialty Start Date End Date No, Physician [facility] PCP - General 08/04/21 Care Team (unrecognized sect ion and content) Care Team Personnel Name: ADAN ANTONI DO Position: P4 Physician - Primary Care Member Role: Primary Care Physician Address: Address: [address] [place] [id number] [place] [address] Care Team Related Persons Name: HILDA TREJO [...] BE BASED ON THE PRIMARY CLINICAL RECORDS. [facility]. provides no warranty or guarantee of the accuracy or completeness of information in this document.
[2023-10-12 20:03] LABS: Xtra Tube EP Lab EXTRA TUBE
== END | disposition home or self-care (01) ==
LOC: PAVLAB 11:46
PROVIDERS: Referring Provider Internal Medicine Medical Oncology; Visit Provider Internal Medicine Medical Oncology
DX: C67.9 Malignant neoplasm of bladder, unspecified (principal)
CPT/HCPCS: 36415; 80053; 83615; 83735; 84100; 85025

== ENCOUNTER 2023-11-16 05:58 | Day surgery (SDC) | payer MEDICARE, SELFPAY ==
--- OUTSIDE RECORDS SUMMARY | 2023-11-16 06:03 | XMS RPT_ITS | CCD ---
Author Name Unknown Address [address] [place] [address] Organization [facility] Care Team Providers Care Technical Support Manager Name Role Phone HutchinsonJaclynKarlene N Unavailable Jasper [...] DO, DR. CORRALES Primary Care Unavailbhavesh MONTENEGRO APRN-SAHIL, THERESE Attending Layne ARELLANO DO, DR. CORRALES Primary Care Unavailabl keesha ARELLANO DO, DR. CORRALES Attending Unavailabl e ADAN ALVAREZ, DR. CORRALES Primary Care Unavailabl e Allergies Allergy Classification Reported Allergen(s) Allergy Type Date of Onset Reaction(s) Facility (6 sources) bee pollen; Translations: [POLLEN] allergy to substance 4 [facility] Work Phone: (8 sources) fenofibrate; Translations: [Fenofibrate] drug allergy 5 [facility] Work Phone: (12 sources) hydroCHLOROthia zide; Translations: [Hydrochlorothi azide] drug allergy 5 [facility] Work Phone: (12 sources) niacin; Translations: [Niacin] drug allergy 5 [facility] Work Phone: (6 sources) tetracycline; Translations: [TETRACYCLINE] drug allergy 4 [facility] Work Phone: (12 sources) traMADol; Translations: [Tramadol] drug allergy 5 [facility] Work Phone: (9 sources) Ciprofloxacin; Translations: [ciprofloxacin] Drug Allergy 1 [facility] (4 sources) Fenofibrate; Translations: [FENOFIBRATE MICRONIZED] Drug Allergy 6 [facility] (4 sources) Pollen; Translations: [POLLEN EXTRACTS] Propensity to adverse reactions to drug 1 [facility] (1 source) Amoxicillin / Clavulanate; Translations: [amoxicillin-cl avulanate] Drug Allergy 2 Nausea (finding) [facility] Medications Current Medications Medication Drug Class(es) [...] as per instructions SOD PICOSULFATE-MAG OX-CIT ACD [id number] Mahnaz Gilmore Problems Active Problems Problem Classification [...] cm Ann Marie Coronado MD Work Phone: [facility] 06-14-2023 15:28-0400 Body mass index (BMI) [Ratio] 27.84 kg/m2 Ann Marie Coronado MD Work Phone: [facility] 06-14-2023 15:28-0400 Body temperature 98.2 [degF] Ann Marie Coronado MD Work Phone: [facility] 06-14-2023 15:28-0400 Body weight 88 kg Ann Marie Coronado MD Work Phone: [facility] 09-01-2022 08:55-0500 Body mass index (BMI) [Ratio] 27.94 kg/m2 Ann Marie Coronado MD Work Phone: [facility] 09-01-2022 08:55-0500 Body weight 88.31 kg Ann Marie Coronado MD Work Phone: [facility] 09-01-2022 08:55-0500 Diastolic blood pressure 76 mm[Hg] Ann Marie Coronado MD Work Phone: [facility] 09-01-2022 08:55-0500 Heart rate 61 /min Ann Marie Coronado MD Work Phone: [facility] 09-01-2022 08:55-0500 SaO2% (BldA) [Mass fraction] 98 % Ann Marie Coronado MD Work Phone: [facility] 09-01-2022 08:55-0500 Systolic blood pressure 137 mm[Hg] Ann Marie Coronado MD Work Phone: [facility] 08-04-2021 13:46-0500 Body height 177.8 cm Sarah Fuller CNP Work Phone: [facility] 08-04-2021 13:46-0500 Body mass index (BMI) [Ratio] 27.84 kg/m2 Sarah Fuller CNP Work Phone: [facility] 08-04-2021 13:46-0500 Body temperature 98.2 [degF] Sarah Fuller CNP Work Phone: [facility] 08-04-2021 13:46-0500 Body weight 88 kg Sarah Fuller CNP Work Phone: [facility] 08-04-2021 13:46-0500 Diastolic blood pressure 78 mm[Hg] Sarah Fuller MILLING MACHINE OPERATOR GEAR Work Phone: [facility] 08-04-2021 13:46-0500 Heart rate 54 /min Sarah Fuller MILLING MACHINE OPERATOR GEAR Work Phone: [facility] 08-04-2021 13:46-0500 Respiratory rate 17 /min Sarah Fuller CNP Work Phone: [facility] 08-04-2021 13:46-0500 SaO2% (BldA) [Mass fraction] 95 % Sarah Fuller MILLING MACHINE OPERATOR GEAR Work Phone: [facility] 08-04-2021 13:46-0500 Systolic blood pressure 138 mm[Hg] Sarah Fuller MILLING MACHINE OPERATOR GEAR Work Phone: [facility] 04-22-2015 15:21-0400 BMI (Body Mass Index) 28.45 kg/m2 [facility] Work Phone: 04-22-2015 15:21-0400 Body Temperature 96.8 [degF] [facility] Work Phone: 04-22-2015 15:21-0400 BP Diastolic 89 mm[Hg] [facility] Work Phone: 04-22-2015 15:21-0400 BP Systolic 169 mm[Hg] [facility] Work Phone: 04-22-2015 15:21-0400 BSA (Body Surface Area) 2.18 m2 [facility] Work Phone: 04-22-2015 15:21-0400 Pulse (Heart Rate) 60 /min [facility] Work Phone: 04-22-2015 15:21-0400 Respiratory Rate 16 /min [facility] Work Phone: 04-22-2015 15:21-0400 Weight 95.17 kg [facility] Work Phone: 10-17-2013 11:22-0500 Height 182.88 cm [facility] Work Phone: Encounters Encounter Date Encounter Type Care Provider Facility Start: 06-14-2023 End: 06-14-2023 Office outpatient visit 10 minutes Ann Marie Coronado MD Work Phone: [facility] Procedures Date Procedure Procedure Detail Performing Clinician Start: 08-04-2021 Gluc bld gluc mntr d ev cleared fda spec home use Sarah Fuller MILLING MACHINE OPERATOR GEAR Work Phone: Start: 08-04-2021 Ecg routine ecg w/le ast 12 lds i&r only Sarah Ramirezchay MILLING MACHINE OPERATOR GEAR Work Phone: Start: 01-18-2019 Antibody screen Plan of Treatment Date Care Activity Detail Author Start: 06-02-2023 End: 06-02-2023 Patient encounter procedure 06/02/2023 Office Visit Otolaryngology Ann Marie Coronado MD [address] [place] [address] [facility] Start: 05-07-2023 COVID-19 Vaccine ( season) COVID-19 Vaccine ( season) [facility] Start: 05-07-2022 Influenza vaccination Sequential Influenza Vaccine (#1) [facility] Start: 03-06-2022 COVID-19 Vaccine (5 - Booster for Moderna series) COVID-19 Vaccine (5 - Booster for Moderna series) [facility] Start: 04-29-2021 COVID-19 Vaccine (3 - Booster for Moderna series) COVID-19 Vaccine (3 - Booster for Moderna series) [facility] Start: 07-21-2019 Hemoglobin A1c measurement A1C [facility] Start: 04-07-2017 End: 04-07-2017 Physical Therapy General Physical Therapy [facility], [address] [place] [address], [id number] [facility] Work Phone: Start: 04-01-2017 End: 04-01-2017 X-ray exam l-s spine bending X-Ray, Spine, Lumbar, complete with bending views [facility] Work Phone: Start: 04-09-2016 End: 04-09-2016 X-ray exam of hand X-Ray, Hand [facility] Work Phone: Start: 04-22-2015 End: 04-22-2015 Diagnostic colonoscopy Colonoscopy [facility] Work Phone: Start: 09-26-2014 End: 09-26-2014 Chest x-ray 4/> views Chest XRAY [facility] Work Phone: Start: 09-26-2014 End: 09-26-2014 Contrast x-ray exam of colon Barium Enema [facility] Work Phone: Start: 06-26-2014 End: 06-26-2014 Mri joint upr extrem w/o dye MRI Joint Upper Extremity [facility] Work Phone: Start: 06-26-2014 End: 06-26-2014 X-ray exam of shoulder X-Ray, Shoulder [facility] Work Phone: Start: 2006 Fall risk assessment Falls Risk Assessment [facility] Start: 2006 Pneumococcal Vaccine: Age 65+ (1 of 1 - PPSV23) Pneumococcal Vaccine: Age 65+ (1 of 1 - PPSV23) [facility] Start: 1991 Administration of herpes zoster vaccine Zoster Vaccines (1 of 2) [facility] Start: 1960 Administration of herpes zoster vaccine Zoster Vaccines (1 of 2) [facility] Start: 1959 Hepatitis C screening Hepatitis C Screening [facility] Start: 1953 Depression screening using PHQ-9 (Patient Health Questionnaire 9) score Depression Screening (PHQ-2/9) [facility] Start: 1951 Diabetic foot examination Foot Exam [facility] Start: 1951 Glaucoma screening [facility] Start: 1951 Urine screening for protein Urine Microalbumin [facility] Start: 1947 Pneumococcal Vaccine: Age 65+ (1 - PCV) Pneumococcal Vaccine: Age 65+ (1 - PCV) [facility] Start: 1944 History and physical examination, annual for health maintenance Wellness Visit [facility] Start: 1941 Tetanus vaccination Tetanus: Every 10yrs [facility] Patient Education Medications [facility] Work Phone: Immunizations Immunization Date Immunization Notes Care Provider Reyes mitchell 06-16-2022 influenza, high dose seasonal, preservative-free DR ANTONI ARELLANO DO [facility] 01-09-2022 COVID-19, mRNA, LNP- S, PF, 100 mcg or 50 mcg dose; Translations: [Moderna COVID-19 Vaccine] DR ANTONI ARELLANO DO [facility] 07-25-2021 COVID-19, mRNA, LNP- S, PF, 100 mcg or 50 mcg dose; Translations: [Moderna COVID-19 Vaccine] DR ANTONI ARELLANO DO [facility] 05-13-2021 influenza virus vaccine, unspecified formulation DR ANTONI ARELLANO DO [facility] Payers Date Payer Category Payer Medicare MMO [facility] MANAGED MEDICARE HMO [id number] 2020-Present [phone] [address] [place] [address] [id number] 2016 Medicare [id number] 1941 Unknown [id number] 1941 Unknown [id number] 1941 Unknown [id number] 1941 Unknown [id number] 1941 Unknown [id number] Social History Date Type Detail Facility Start: 03-16-2019 Never smoked tobacco (f inding) [facility] Clinical Notes 12-24-2020 to 06-14-2023 Ann Marie Coronado MD - 06/14/2023 3:59 PM Melia Hall MA - 06/14/2023 3:27 PM Bella Coronado MD - 09/01/2022 9:03 AM Kevin Chapman LPN - 09/01/2022 8:51 AM ESTLaboratory Note Date & Type Note Facility 06-14-2023 History of Present illness Narrative [facility] [address] [facility] [address] [address] [facility] [id number] Dept: [phone] MD Barrington Barcenas 82 y.o. male Patient [...] of submandibular glands, clear salivary flow from [place]'s ducts, no stones of Lizette's ducts Temporomandibular [...] Negative. Psychiatric/Behavioral: Negative. documented in this encounter [facility] 09-01-2022 History of Present illness Narrative [facility] [address] [facility] [address] [address] [facility] [id number] Dept: [phone] MD Barrington Barcenas 81 y.o. male Patient [...] headaches. Psychiatric/Behavioral: Negative. documented in this encounter [facility] 02-07-2022 HCoV 229E RNA YASMINE+non-probe [...] Q-T Interval (corrected) QTC Calculation (Bezet) P [place] R [place] T [place] IMPRESSION/PLAN: 80 y.o. male being seen today [...] the referring physician. documented in this encounter [facility] 01-24-2021 Note HNO ID: [id number] Author: Teddy Cruz Service: ? Author Type: Superintendent Plant Type: Progress Notes Filed: 01/24/2021 4:15 PM [...] DATE: January 24, 2021 TIME: 4:14 PM [facility] 01-10-2021 Note HNO ID: [id number] Author: Mark Leary MD Service: ? Author Type: Physician Type: Progress Notes Filed: 01/10/2021 2:18 PM Note Text: DEPARTMENT OF GASTROENTEROLOGY - FOLLOW UP VISIT HISTORY OF PRESENT ILLNESS Barrington Trejo is a 80 year old male who presents today for follow up of left lower quadrant abdominal pain that developed last week. Seen by HOUSING DIRECTOR, given amoxicillin x 4 days, without improvement, [...] Leary MD January 10, 2021 2:10 PM [facility] 12-24-2020 Note HNO ID: [id number] Author: Mark Leary Service: ? Author Type: [...] Laterality Date - COLONOSCOP W/ OR W/O [facility] SPEC 09/23/2016 Colonoscopy mac - COLONOSCOPY 2004 [...] bleeding: no Depression (more content not included)... [facility] Evaluation + Plan note Future Appointments Appointment Date:09/30/2021 02:20:00 PM Scheduled Provider:ANTONI ARELLANO DO Location:[facility] Appointment Type:PC OV Future Scheduled TestsThyroid Stimulating Hormone 10/02/21A1C Hemoglobin 10/02/21Complete Blood Count 10/02/21Lipid Profile 10/02/21Complete Metabolic Panel 10/02/21 [facility] Evaluation + Plan note Future Appointments Appointment Date:09/30/2021 02:20:00 PM Scheduled Provider:ANTONI ARELLANO DO Location:[facility] Appointment Type:PC OV [facility] Evaluation + Plan note Future Appointments Appointment Date:04/16/2022 11:30:00 AM Scheduled Provider:ANTONI ARELLANO DO Location:[facility] Appointment Type:PC OV Future Scheduled TestsProstate Specific Antigen 04/11/22Thyroid Stimulating Hormone 04/11/22A1C Hemoglobin 04/11/22Complete Blood Count 04/11/22Lipid Profile 04/11/22Complete Metabolic Panel 04/11/22XR Sacroiliac Joints Minimum 3 Views 01/09/22XR Spine Lumbar AP/LAT 01/09/22 [facility] Evaluation + Plan note Future Appointments Appointment Date:01/15/2023 11:30:00 AM Scheduled Provider:ANTONI ARELLANO DO Location:[facility] Appointment Type:PC OV Future Scheduled TestsThyroid Stimulating Hormone 07/17/22Complete Blood Count 07/17/22Lipid Profile 07/17/22Complete Metabolic Panel 07/17/22XR Sacroiliac Joints Minimum 3 Views 01/09/22XR Spine Lumbar AP/LAT 01/09/22 [facility] Bilateral impacted cerumen- Primary Impacted cerumen 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 hearing loss, bilateral [facility] Bilateral impacted cerumen- Primary Impacted cerumen Disorder of both eustachian tubes Tympanosclerosis of left ear documented in this encounter [facility] course Narrative No data available for this section [facility] Hospital Discharge instructions No data available for this section [facility] Progress note No data available for this section [facility] Summary Purpose Family History No Family History Records FoundNo Family History Records FoundNo Family History Records FoundNo Family History Records FoundNo Family History Records Found Advance Directives Documents on File Type Date Recorded Patient Cab Driver Expl anation Advance Directives and Living Will Procedure Findings Note HNO ID: [id number] Author: Ernie Earl Service: Orthopaedic Surgery Author Type: Physician Type: Operative Report Filed: 02/03/2019 10:57 AM Note Text: OPERATIVE NOTE PATIENT NAME: Barrington Trejo LOG ID: [id number] Surgery Date: 02/03/2019 Surgeon(s) and Pediatric Physical Therapist(s): Surgeon(s) and Role: * Tacos Earl - Primary Physician Pediatric Physical Therapist: Alis Lama (Pa) Factory Manager: Lamar Magaña Procedure(s): Procedure(s) (LRB): ARTHROPLASTY REPLACE [...] (more content not included)... Note HNO ID: [id number] Author: Aleksandr condon Jr (Res) [employer] Service: [...] not included)... Hospital Course Note HNO ID: [id number] Author: Aleksandr condon Jr (Res) [employer] Service: [...] DATE CREATED AUTHOR AUTHOR'S ORGANIZ ATION 02/14/2019 [facility] DATE CREATED AUTHOR AUTHOR'S ORGANIZ ATION 10/29/2021 [facility] DATE CREATED AUTHOR AUTHOR'S ORGANIZ ATION 09/01/2022 [facility] DATE CREATED AUTHOR AUTHOR'S ORGANIZ ATION 09/08/2022 [facility] ([place]) Reason for Visit (unrecogniz ed section and content) Reason Comments Cerumen Impaction New pt Reason Comments Follow-up 9 mth ear cleaning Care Teams (unrecognized sec tion and content) Technical Support Manager Relationship Specialty Start Date End Date No, Physician [facility] PCP - General 08/04/21 Technical Support Manager Relationship Specialty Start Date End Date No, Physician [facility] PCP - General 08/04/21 Care Team (unrecognized sect ion and content) Care Team Personnel Name: ADAN ANTONI DO Position: P4 Physician - Primary Care Member Role: Primary Care Physician Address: Address: [address] [place] [id number] [place] [address] Care Team Related Persons Name: HILDA TREJO [...] BE BASED ON THE PRIMARY CLINICAL RECORDS. [facility] [employer] [facility]. provides no warranty or guarantee of the accuracy or completeness of information in this document.
[2023-11-16 06:15] VITALS: BP 119/66; PULSE 65; RESP 18; TEMP 36.7; O2SAT 100; BMI 27.1
[2023-11-16 06:49] LABS: Bedside Glucose 183 mg/dL (74-106)
[2023-11-16] MEDS: Lactated Ringers 1,000 ML 15 ML IV (06:53)
--- NOTE | 2023-11-16 07:07 | HP.PCM_ITS ---
History and Physical Date of Admission: 11/16/23 Date of Service: 11/01/23 MR#: [id number] Acct: [id number] Name: ANITA PADILLA Rep #: [id number] : 1940 Provider: Dr. Sj Austin MD Age/Sex: 83/M Location: [facility] Status: Signed Intake Vital Signs 10/28/2413:15 11/01/2409:17 Height 5 ft 10.5 in 5 ft 10.5 in Weight: 196 lb 5 oz 195 lb BMI 27.7 27.6 BP 131/69 H 124/75 H Blood Pressure Location Lt brachial Rt brachial Position Sitting Sitting Respiration 18 18 Pulse 61 71 Pulse Source Monitor Monitor Temp 98.4 F 97.1 F L Temp Source Temporal Pulse Oximetry (%) 100 97 Oxygen Delivery Method room air room air Intake Visit Reasons: PORT PLACEMENT Chief Complaint: Port Placement Ham Passer Required: No Accompanied by: Is patient in pain?: No Allergies fenofibrate [From Tricor] Allergy (Verified 11/01/23 10:18) Rashhydrochlorothiazide Allergy (Verified 11/01/23 10:18) Rashniacin Allergy (Verified 11/01/23 10:18) Rashtetracycline [Tetracycline] Allergy (Verified 11/01/23 10:18) Hivestramadol Allergy (Verified 11/01/23 10:18) Hivesciprofloxacin [From Cipro] Adverse Reaction (Verified 11/01/23 10:18) Nausea/Vom/Diarrhea Medications finasteride 5 mg tablet 5 mg PO DAILY 10/18/13 [History Confirmed 11/01/23] nadolol 80 mg tablet (Corgard) 80 mg PO DAILY 09/14/14 [History Confirmed 11/01/23] omeprazole 20 mg capsule,delayed release 20 mg PO DAILY PRN indigestion 09/14/14 [History Confirmed 11/01/23] amlodipine 5 mg tablet 5 mg PO DAILY 02/20/19 [History Confirmed 11/01/23] tamsulosin 0.4 mg capsule 0.4 mg PO QHS 02/20/19 [History Confirmed 11/01/23] cholecalciferol (vitamin D3) 50 mcg (2,000 unit) capsule (Vitamin D3) 50 mcg PO DAILY 09/10/23 [History Confirmed 11/01/23] metformin 500 mg tablet,extended release 24 hr 500 mg PO 1200 09/10/23 [History Confirmed 11/01/23] rosuvastatin 5 mg tablet 5 mg PO 1200 09/10/23 [History Confirmed 11/01/23] topiramate 25 mg tablet 25 mg PO BID 09/10/23 [History Confirmed 11/01/23] ibuprofen 600 mg tablet 600 mg PO Q6H PRN fever or pain #20 tabs 09/24/23 [Rx Confirmed 11/01/23] lisinopril 20 mg tablet 40 mg PO DAILY 10/08/23 [History Confirmed 11/01/23] PFSH Medical History Abrasion Alcohol use Bladder disease Cancer Diabetes DVT (deep venous thrombosis) Gastric reflux High cholesterol History of hiatal hernia History of pain when walking History of stress test Hx of fracture of ankle Hypertension Loss of hearing Neuropathy Non-smoker Prostate disease Tremor Wears glasses Surgical History H/O cystoscopy History of tonsillectomy Hx of colonoscopy Hx of esophagogastroduodenoscopy Hx of left cataract extraction Hx of right cataract extraction Hx of total hip arthroplasty Social History household members: spouse Smoking Status: Never smoker HPI HPI HPI: Patient is a 83-year-old gentleman who presents for consideration of port placement. Patient presents today with his spouse. Patient was diagnosed with bladder cancer August 2023 after presentation with hematuria. Mr. Padilla confirms that his bleeding was short-lived and has been resolved for a while now. They have met with oncology and plans are to begin chemotherapy soon along with radiation. However, he goes on to say that he sees radiation as a last resort . When I probed him about this statement and ask him for his thoughts on potential surgical complications after radiation he states that he had never been presented with that perspective. He notes that he is due to see radiation oncology, Dr. Lieberman, tomorrow Patient has no prior history of central line placement. Patient has no pacemaker or intracardiac defibrillator. Patient has no history of renal dysfunction. Mr. Padilla is not currently prescribed blood thinners. ROS General General: Yes fatigue; No weight change, appetite, colon cancer, breast cancer or weakness Additional Details: bladder cancer HEENT HEENT: Yes eye surgery; No difficulty swallowing, eye injury, swollen glands or hoarseness Endo Endocrine: Yes diabetes mellitus; No thyroid disease, thyroid cancer, Hair loss, heat intolerance or cold intolerance Skin Skin: No rash or changing moles Breast Breast: No left breast lump, right breast lump, nipple discharge, breast pain, abnormal mammogram, abnormal US or breast enlargement Musc Musculoskeletal: No back problems, arthritis, rheumatoid arthritis, gout or joint pain Cardio Cardiovascular: Yes high blood pressure; No murmur, pacemaker, heart disease, atrial fibrillation, heart attack, heart stent, palpitations, shortness of breat with exertion or chest pain Psych Psychiatric: No depression, anxiety or hearing voices Resp Respiratory: No shortness of breath, No sleep apnea, No cough, No COPD, No asthma, No emphysema and No wheezing Gastro Gastrointestinal: No abdominal pain, No nausea or vomiting, No diarrhea, No constipation, No blood in stool, Yes acid reflux, No hemorrhoids, No ulcers, No gallbladder problem and No black,tarry stools Robby Hematologic: No blood thinners, No blood disorders, No bleeding, No anemia and No blood clots Neuro Neurologic: No system reviewed and no additional complaints, except as documented, No as per HPI, No abnormal gait, No abnormal hearing, No abnormal movements, No abnormal speech, No behavioral changes, No burning sensations, No confusion, No convulsions, No disequilibrium, No dizziness, No localized weakness, No frequent falls, No headache(s), No lack of coordination, No loss of vision, No memory loss, No numbness, No other visual disturbances, No radicular pain, No restless legs, No sensory deficit, No syncope, No tingling, No tremor(s), No weakness and No other Exam Const General: cooperative Orientation: alert, awake and oriented x3 Other: Hard of hearing Neck Other: No scars or lesions Chest Other: No scars, rashes, or lesions Assessment and Plan Assessment and Plan (1) Bladder cancer: Status: Acute Qualifiers: Bladder location: trigone Qualified Code(s): C67.0 - Malignant neoplasm of trigone of bladder Comment: Invasive Urothelial carcinoma with squamous differentiation, pT2 pN0 M0-Stage II. Patient originally scheduled for chemo and radiation, however, I raised my concern that he would choose to undergo surgery following radiation and this may invalidate him as a candidate for surgery given the effects of radiation on tissues and tissue planes. Patient and his spouse state that no one ever addressed this with them and they are rather inclined to learning more about the procedure before they forego it altogether. I have encouraged getting the second opinion as patient is 83 but appears to have minimal comorbidities at his present age and appears to be doing well. He also appears somewhat frustrated with his lack of information and I believe would benefit from additional explanation so he has closure with what ever treatment course is decided upon. These concerns were raised with Dr. Lieberman of radiation oncology who will plan to continue this conversation and seek a referral for patient through urology within the [facility]. In the meantime I find patient has a acceptable candidate for port placement and will look to schedule him for outpatient placement. I have discussed with him and his spouse the infection concerns in the general use of the port. They expressed understanding of this information and appreciation for this explanation. Plan: ? Plan to proceed with right versus left ultrasound?guided internal jugular port placement. Will confirm treatment plans with medical and radiation oncology prior to proceeding. I have examined the patient the following changes are noted: Patient and his spouse are visited and they confirm they have met with radiation oncology. They also share that they have decided to proceed with chemo and radiation at this time and elected to forego any consultations with urology for the present time. We thus reviewed the expectations for today's procedure as well as the postoperative recovery. All questions were answered from patient and his . Will now proceed to the operating room for planned port placement as discussed in greater detail above.
[2023-11-16] MEDS: Cefazolin 2 GM in 0.9% Normal Saline (100mL Bag) 100 ML IV (07:30)
[2023-11-16] MEDS: Bupivacaine Mpf 0.5% 30 ML VIAL (08:00)
--- NOTE | 2023-11-16 08:42 | OP.PCM_ITS ---
Report of Operation Date of Procedure: 11/16/23 Pre-Operative Diagnosis: Bladder cancer requiring durable venous access for adm inistration of chemotherapy Post-Operative Diagnosis: Same Surgery/Procedure Performed:: Insertion of right internal jugular Port-A-Cath Surgeon: Sj Austin properties supervisor: None Type of Anesthesia: General/Supplemental Anesthesiologist: Alonso Mathews Specimen's removed: None Estimated Blood Loss (mL): 5 Description of Procedure: After appropriate identification in the preoperative holding area the patient was brought to the operating room. There the was administered preoperative antibiotics and positioned supine on the operating room table. Once sedation was begun, the upper chest and lower cervical region were prepped and draped in usual sterile fashion. A formal timeout was then conducted to confirm both the patient and procedure. Ultrasound was used to localize the right internal jugular vein. Then a wheal of 0.5% bupivacaine plain local anesthetic was raised superficially in this location and the vein was accessed under direct ultrasound guidance using a Seldinger technique and micro access kit to place a guidewire. The position of the guidewire was confirmed with fluoroscopy. The micro access guidewire was exchanged for standard 035 guidewire using provided sheath. Next the position of the port pocket was determined and again local anesthetic was used to anesthetize the area of both the pocket and the tunneling cephalad. A transverse incision 3 cm in width was made down through the subcutaneous tissue. Selective electrocautery was used to obtain hemostasis. Then with blunt dissection the port pocket was developed. The catheter was connected to the tunneler and was tunneled up to the position of the guidewire. Here the dilator and peel-away sheath were placed over the guidewire and the guidewire was removed. Position was again confirmed with fluoroscopy. The catheter length was estimated based on the external placement of a hemostat to approximate the level of the sameera and the cavoatrial junction. The catheter was then fed into the sheath and slowly the sheath was peeled away as the catheter was inserted fully into the neck. Back in the chest the excess catheter was trimmed and the port was connected to the catheter. The port was tied into the pocket using 3-0 Vicryl. Function was then tested using sterile saline on a Tolbert needle. It was locked with 3 mL of heparinized saline (concentration 50U/5mL). The port pocket was closed with a deep dermal stitch using a running 3-0 Vicryl followed by 4-0 Monocryl subcuticular stitch. The 1 cm incision in the neck was closed with a single interrupted subcuticular stitch using 4-0 Monocryl. Dermabond was applied as a dressing. Patient was then aroused from the sedation and taken to PACU for ongoing recovery were a portable chest x-ray was obtained to confirm port positioning and exclude any pneumothorax. Grafts/Implants Used: 8 [place] ISP MRI implantable PowerPort Complications None Admit VTE Documentation VTE Mechan Device Prophylaxis: SCD's Procedures Cardiovascular CF Procedures [id number]: [id number] Insert tunneled cv cath
--- NOTE | 2023-11-16 08:46 | DCINST_ITS ---
Discharge Instructions Diet Discharge Diet: No restrictions Activity Discharge Activity: May Shower May shower in (days): 1 Ice area for (Minutes): 20 Additional Activity Instructions:: Limit the activity by the nearest upper extremity for 48 hours postop Dressing / Incision Call your doctor if your incision/area has: Increased Pain/ Swelling, Increased Redness, Foul Smelling Discharge and Swelling at the incision site Call your doctor if you observe: Fever of 101 or Higher Remove Dressing in: do not remove dressing (Dermabond (surgical glue) expected to dissolve spontaneously within 7 to 10 days postop using regular showering) Cleanse incision/area with: Soap & Water Follow Up Care Test Results: Test results from this visit will be discussed in further detail at your follow- up appointment, if applicable. Discharge Plan Admission Primary Reason for Your Visit: Port placement Attending Provider: Sj Austin Primary Care Provider: Zoie Whitt Discharge Orders/Prescriptions Prescriptions: Continued lidocaine-prilocaine 2.5-2.5 % cream 1 applic topical ONCE PRN (Reason: port access) 30 Days Qty: 30 2RF ondansetron 4 mg tablet,disintegrating 4 mg PO Q8H PRN (Reason: nausea and vomiting) Qty: 30 2RF prochlorperazine maleate 10 mg tablet 10 mg PO Q6H PRN (Reason: nausea and vomiting) Qty: 30 2RF dexamethasone 4 mg tablet 4 mg PO .COMPLEX Qty: 20 0RF Rx Instructions: 4 mg orally daily ONLY on days 2,3, and 4 chemotherapy cycle finasteride 5 MG tablet 5 mg PO QHS nadolol [Corgard] 80 MG tablet 80 mg PO DAILY omeprazole 20 MG capsule 20 mg PO DAILY PRN (Reason: indigestion) lisinopril 20 mg tablet 40 mg PO DAILY amlodipine 5 MG tablet 5 mg PO DAILY tamsulosin 0.4 MG capsule 0.4 mg PO QHS metformin 500 mg tablet extended release 24 hr 500 mg PO 1200 topiramate 25 mg tablet 25 mg PO DAILY rosuvastatin 5 mg tablet 5 mg PO 1200 cholecalciferol (vitamin D3) [Vitamin D3] 50 mcg (2,000 unit) capsule 50 mcg PO DAILY Referrals / Follow Up: Zoie Whitt, [Primary Care Provider] - Disposition Disposition (needs filled in before D/C Order can be placed): Home, Self Care
[2023-11-16 08:50] VITALS: BP 119/66; BP 121/68; PULSE 70; RESP 16; TEMP 36.3; O2SAT 99
[2023-11-16 08:55] VITALS: BP 119/66; BP 123/68; PULSE 63; RESP 16; O2SAT 99
[2023-11-16 09:00] VITALS: BP 117/76; BP 119/66; PULSE 62; RESP 16; TEMP 36.4; O2SAT 99
--- NOTE | 2023-11-16 09:00 | RAD_ITS ---
STUDY: X-RAY CHEST REASON FOR EXAM: Male, 83 years old. Status post line placement TECHNIQUE: Single AP portable view of the chest. COMPARISON: None. FINDINGS: A right-sided portacatheter is in place with the tip at the junction of the superior vena cava and right atrium. The lungs are clear and expanded. There is no demonstrated pleural abnormality. Normal size heart. Normal mediastinum and aylin. Normal visualized pulmonary arteries. There is atherosclerotic calcification of the aortic arch with tortuosity. There are diffuse degenerative changes of the visualized thoracic spine. Normal visualized ribs, clavicles, and shoulders. There is no demonstrated abnormality of the visualized soft tissue structures of the upper abdomen. RAD/CXR for Line Placement IMPRESSION: The tip of the right Port-A-Cath is at the junction of the superior vena cava and right atrium. Electronically Signed: Kevan Melgoza MD at 9:15 EDT ,
[2023-11-16 09:30] VITALS: BP 119/66
== END 2023-11-16 10:12 | disposition home or self-care (01) ==
LOC: SDC 05:59 → AC 06:01
PROVIDERS: Referring Provider Surgery; Visit Provider Surgery
PROC: (CPT 36561; principal; 2023-11-16 07:15)
DX: C67.0 Malignant neoplasm of trigone of bladder (principal); E11.9 Type 2 diabetes mellitus without complications; Z92.3 Personal history of irradiation; E78.00 Pure hypercholesterolemia, unspecified; I10 Essential (primary) hypertension; Z90.79 Acquired absence of other genital organ(s); Z87.81 Personal history of (healed) traumatic fracture; K21.9 Gastro-esophageal reflux disease without esophagitis; Z86.718 Personal history of other venous thrombosis and embolism
CPT/HCPCS: 36561; 71045; 77001; 82962; C1894; J7120; C1788; J2405

== ENCOUNTER 2023-11-22 00:23 | Emergency (ER) | payer MEDICARE, SELFPAY ==
[2023-11-22 00:24] VITALS: BP 142/68; PULSE 60; RESP 15; TEMP 36.6; O2SAT 100; BMI 28.3
[2023-11-22 00:30] VITALS: BP 135/70; PULSE 64; RESP 16; TEMP 36.6; O2SAT 99
[2023-11-22 01:30] VITALS: BP 131/65; PULSE 63; RESP 16; TEMP 36.6; O2SAT 100
[2023-11-22 01:35] LABS: Squamous Epithelial Cells - UA 0 SEEN /hpf (0-5)
[2023-11-22 01:36] LABS: Absolute Lymphocyte Count 2.51 X10^3/uL (0.83-4.51); Absolute Neutrophil Count 5.2 X10^3/uL (2.0-7.7); Basophil# 0.07 X10^3/uL; Basophil% 0.8 % (0-1); Eosinophil# 0.51 X10^3/uL; Eosinophils% 5.5 % (0-5); Hematocrit 38.3 % (40-54); Hemoglobin 12.8 g/dL (13.0-16.5); Lymphocyte # 2.51 X10^3/ul (0.83-4.51); Lymphocyte % 27.1 % (19-41); Mean Corp Hgb Conc 33.4 g/dL (32-36); Mean Corpuscular Hgb 29.6 pg (27.0-32.0); Mean Corpuscular Volume 88.7 fL (80-94); Mean Platelet Vol. 10.9 fl (6.2-12.0); Monocyte% 9.7 % (0-10); NRBC Flagged by Analyzer 0 % (0-5); Neutrophil # 5.24 X10^3/uL (2.7-7.7); Neutrophil % 56.5 % (47-70); Platelet Count 174 K/mm3 (150-450); RBC Distribution Width CV 13.3 % (11.6-14.6); RBC Distribution Width SD 43.3 fl (35.1-43.9); Red Blood Count 4.32 M/mm3 (4.6-6.2); White Blood Count 9.3 K/mm3 (4.4-11.0)
[2023-11-22 01:38] LABS: Color, Urine Yellow (Yellow); Glucose, Dipstick 250 mg/dl (Normal); Ketone-Dipstick 5 mg/dl (Negative); Leukocyte Esterase-Dipstick 500 /ul (Negative); Nitrite-Dipstick Negative (Negative); Occult Blood-Urine 250 /ul (Negative); Protein-Dipstick 500 mg/dl (Negative); Urine Bilirubin Dipstick Negative (Negative); Urine Clarity Cloudy (Clear); Urine Urobilinogen Normal (Normal)
[2023-11-22 01:49] LABS: Anion Gap 6 (5-15); BUN 20 mg/dL (7-18); BUN/Creat Ratio 20.9 RATIO (10-20); Calcium,Total 9.4 mg/dL (8.5-10.1); Chloride 106 mmol/L (98-107); Creatinine, Serum 0.96 mg/dL (0.70-1.30); EST Glomerular Filtration Rate 80 mL/min (>60); Est Glom Filt Rate - Afr Amer 97 mL/min (>60); Estimated Creatinine Clearance 66.76 ml/min; Glucose 242 mg/dL (74-106); Potassium 3.8 mmol/L (3.5-5.1); Sodium Level 138 mmol/L (136-145)
[2023-11-22 02:05] VITALS: BP 130/65; PULSE 63; RESP 16; TEMP 36.6; O2SAT 99
[2023-11-22 02:10] LABS: Bacteria 3+ /hpf (None Seen); Mucous, Urine 1+ /hpf (<or=2+); Red Blood Cells-Urine 5-10 SEEN /hpf (0-5); Transitional Epithelial - Ur 0-5 SEEN /hpf (0-5); White Blood Cells 50-100 SEEN /hpf (0-5)
[2023-11-22 03:00] VITALS: BP 145/80; PULSE 88; RESP 18; TEMP 36.3; O2SAT 99
--- NOTE | 2023-11-22 03:01 | EDS_ITS ---
HPI History of Present Illness Chief Complaint: Complaint Detail of Chief Complaint: Dysuria, incontinence and frequency Informant: patient Onset/Context/Timing Onset: - (Date of service) Context: Sudden Onset Timing: Intermittent Quality: Neurologic symptoms concerning for infection Location: Current Severity: Gone Maximum Severity: Moderate Worsened by: With urination Relieved by: Not applicable Associated Symptoms Associated Symptoms: No other symptoms Narrative Narrative: Patient is 83-year-old male with history of bladder cancer presents with dysuria, frequency and incontinence. He denies scrotal swelling or pain. He denies low back pain or flank pain. He denies fever or chills. He denies nausea or vomiting. He is not on an anticoagulant. He is scheduled for chemo and radiation therapy November 28 Prior similar symptoms: No Recent Illness/Hospitalization: Yes [facility] Medical History Alcohol use Bladder disease Cancer Diabetes DVT (deep venous thrombosis) Encounter for education Gastric reflux High cholesterol History of hiatal hernia History of pain when walking History of stress test Hx of fracture of ankle Hypertension Loss of hearing Neuropathy Non-smoker Prostate disease Tremor Wears glasses Home Medications finasteride 5 mg tablet 5 mg PO QHS 10/18/13 [History Last Taken 11/15/23] nadolol 80 mg tablet (Corgard) 80 mg PO DAILY 09/14/14 [History Last Taken 11/15/23] omeprazole 20 mg capsule,delayed release 20 mg PO DAILY PRN indigestion 09/14/14 [History Last Taken 11/15/23] amlodipine 5 mg tablet 5 mg PO DAILY 02/20/19 [History Last Taken 11/15/23] tamsulosin 0.4 mg capsule 0.4 mg PO QHS 02/20/19 [History Last Taken 11/15/23] cholecalciferol (vitamin D3) 50 mcg (2,000 unit) capsule (Vitamin D3) 50 mcg PO DAILY 09/10/23 [History Last Taken 11/15/23] metformin 500 mg tablet,extended release 24 hr 500 mg PO 1200 09/10/23 [History Last Taken 11/15/23] rosuvastatin 5 mg tablet 5 mg PO 1200 09/10/23 [History Last Taken 11/15/23] topiramate 25 mg tablet 25 mg PO DAILY 09/10/23 [History Last Taken 11/15/23] lisinopril 20 mg tablet 40 mg PO DAILY 10/08/23 [History Last Taken 11/15/23] dexamethasone 4 mg tablet 4 mg PO .COMPLEX #20 tabs 11/08/23 [Rx Last Taken Unknown] lidocaine-prilocaine 2.5 %-2.5 % topical cream 1 applic topical ONCE PRN port access 30 days #30 grams 11/08/23 [Rx Last Taken 11/15/23] ondansetron 4 mg disintegrating tablet 4 mg PO Q8H PRN nausea and vomiting #30 tabs 11/08/23 [Rx Last Taken Unknown] prochlorperazine maleate 10 mg tablet 10 mg PO Q6H PRN nausea and vomiting #30 tabs 11/08/23 [Rx Last Taken Unknown] cephalexin 500 mg capsule 500 mg PO Q6 #40 CAPSULES 11/22/23 [Rx Last Taken Unknown] phenazopyridine 200 mg tablet (Pyridium) 200 mg PO TID #10 tabs 11/22/23 [Rx Last Taken Unknown] Allergy/AdvReac Type Severity Reaction Status Date / Time fenofibrate [From Tricor] Allergy Rash Verified 11/16/23 07:05 hydrochlorothiazide Allergy Rash Verified 11/16/23 07:05 niacin Allergy Rash Verified 11/16/23 07:05 tetracycline [Tetracycline] Allergy Hives Verified 11/16/23 07:05 tramadol Allergy Hives Verified 11/16/23 07:05 ciprofloxacin [From Cipro] AdvReac Nausea/Vom/ Verified 11/16/23 07:05 Diarrhea Surgical History H/O cystoscopy History of ankle surgery History of tonsillectomy History of transurethral resection of prostate Hx of colonoscopy Hx of esophagogastroduodenoscopy Hx of left cataract extraction Hx of right cataract extraction Hx of total hip arthroplasty Social History household members: spouse Smoking Status: Never smoker substance use type: does not use ROS ROS ED Constitutional Constitutional ED: Denies chills, fever(s), subjective, sweats or weight loss Eyes Eyes: Denies blurry vision or change in vision Cardiovascular Cardiovascular: Denies chest pain or palpitations Respiratory/Chest Respiratory/Chest: Denies cough, dyspnea or dyspnea on exertion Gastrointestinal Gastrointestinal: Denies abdominal pain, nausea or vomiting Genitourinary Genitourinary ED: Reports dysuria and urinary frequency; Denies hematuria Musculoskeletal Musculoskeletal: Denies arthralgias, back pain, myalgias or neck pain Integumentary Denies rash Hematologic/Lymphatic Hematologic/Lymphatic: Reports systems reviewed and no addt'l complaints, except as documented EXAM Physical Exam Const Vital Signs: 11/22/23 00:24 11/22/23 00:30 11/22/23 01:30 Temperature 97.9 F 97.9 F 98 F Temperature Source Oral Oral Oral Pulse Rate 60 64 63 Respiratory Rate 15 16 16 Blood Pressure 142/68 H 135/70 H 131/65 H Blood Pressure Mean 92 91 87 Pulse Ox 100 99 100 Oxygen Delivery Method Room Air Room Air Room Air 11/22/23 02:05 Temperature 97.9 F Temperature Source Oral Pulse Rate 63 Respiratory Rate 16 Blood Pressure 130/65 H Blood Pressure Mean 86 Pulse Ox 99 Oxygen Delivery Method Room Air Blood pressure is slightly elevated otherwise vital signs are unremarkable Positive well nourished and well developed General Appearance ED: well developed and NAD; Negative for pallor HEENT Reports moist mucous membranes HEENT Narrative: Head is atraumatic normocephalic. Ears normal. Nares patent. Posterior pharynx is normal. Eyes PERRL and EOMs intact bilaterally General Eye ED: Negative for pale conjunctiva or scleral icterus Neck no lymphadenopathy and no JVD Resp normal respiratory effort and clear to auscultation bilaterally Cardio regular rate, regular rhythm, S1 normal heart sound, S2 normal heart sound and no murmurs GI normal to inspection, nondistended, normoactive bowel sounds, non-tender, non- distended and no masses; Negative for hepatosplenomegaly Back/Spine no CVA tenderness Back/Spine Narrative: Inspection is normal. Testes descended bilaterally. No testicular or epididymal tenderness. There is no sandra lymphadenopathy. Patient's urethra appears normal. There are no penile lesions. Extremity normal to inspection Neuro oriented x3 and CN's II-XII intact bilaterally Sensorium / Orientation: alert Psych mental status grossly normal Skin no rashes or lesions noted and no wounds General Skin Exam: Negative for jaundice or pallor MDM MDM MDM Narrative Medical decision making narrative: Differential diagnosis would be acute cystitis, urethritis, doubt prostatitis appropriate blood work was obtained assess white count differential as well as H&H and to assess for any endorgan dysfunction. UA was obtained as well. Lab Data Attestation: I reviewed the patient's lab results. Lab results narrative: White count reveals mild anemia with normal indices. Basic metabolic panel reveals slightly elevated BUN. Glucose is elevated 242. He is diabetic on oral agents. CO2 and anion gap are normal. Urine is consistent with infection. Culture was sent. He received dose of Azo and cephalexin in the emergency room. He has allergy to tetracycline and quinolones. Labs: Laboratory Results - last 24 hr 11/22/23 11/22/23 01:23 01:27 WBC 9.3 RBC 4.32 L Hgb 12.8 L Hct 38.3 L MCV 88.7 MCH 29.6 MCHC 33.4 RDW Std Deviation 43.3 RDW Coeff of Gaye 13.3 Plt Count 174 MPV 10.9 Immature Gran % (Auto) 0.400 Neut % (Auto) 56.5 Lymph % (Auto) 27.1 [place] % (Auto) 9.7 Eos % (Auto) 5.5 H Baso % (Auto) 0.8 Absolute Neuts (auto) 5.2 Absolute Lymphs (auto) 2.51 Nucleated RBC % 0 Sodium 138 Potassium 3.8 Chloride 106 Carbon Dioxide 26.0 Anion Gap 6 BUN 20 H Creatinine 0.96 Estim Creat Clear Calc 66.76 Est GFR (MDRD) Af Amer 97 Est GFR (MDRD) Non-Af 80 BUN/Creatinine Ratio 20.9 H Glucose 242 H Calcium 9.4 Urine Color Yellow Urine Clarity Cloudy Urine pH 6.0 Ur Specific [place] 1.020 Urine Protein 500 H Urine Glucose (UA) 250 H Urine Ketones 5 H Urine Occult Blood 250 H Urine Nitrite Negative Urine Bilirubin Negative Urine Urobilinogen Normal Ur Leukocyte Esterase 500 H Urine RBC 5-10 SEEN Urine WBC 50-100 SEEN Ur Squamous Epith Cells 0 SEEN Ur Transition Epith Cell 0-5 SEEN Urine Bacteria 3+ Urine Mucus 1+ Discharge Plan Triage Chief Complaint: Complaint ED Provider: Randy Mancia Dx/Rx/DC Orders Clinical Impression: Acute cystitis, Hx of hypercholesterolemia, Bladder cancer, History of hypertension, History of BPH Instructions: ED Bladder Infection, Male (Adult) Prescriptions: New cephalexin [cephalexin] 500 mg capsule 500 mg PO Q6 Qty: 40 0RF phenazopyridine [Pyridium] 200 mg tablet 200 mg PO TID Qty: 10 0RF No Action lidocaine-prilocaine 2.5-2.5 % cream 1 applic topical ONCE PRN (Reason: port access) 30 Days Qty: 30 2RF ondansetron 4 mg tablet,disintegrating 4 mg PO Q8H PRN (Reason: nausea and vomiting) Qty: 30 2RF prochlorperazine maleate 10 mg tablet 10 mg PO Q6H PRN (Reason: nausea and vomiting) Qty: 30 2RF dexamethasone 4 mg tablet 4 mg PO .COMPLEX Qty: 20 0RF Rx Instructions: 4 mg orally daily ONLY on days 2,3, and 4 chemotherapy cycle finasteride 5 MG tablet 5 mg PO QHS nadolol [Corgard] 80 MG tablet 80 mg PO DAILY omeprazole 20 MG capsule 20 mg PO DAILY PRN (Reason: indigestion) lisinopril 20 mg tablet 40 mg PO DAILY amlodipine 5 MG tablet 5 mg PO DAILY tamsulosin 0.4 MG capsule 0.4 mg PO QHS metformin 500 mg tablet extended release 24 hr 500 mg PO 1200 topiramate 25 mg tablet 25 mg PO DAILY rosuvastatin 5 mg tablet 5 mg PO 1200 cholecalciferol (vitamin D3) [Vitamin D3] 50 mcg (2,000 unit) capsule 50 mcg PO DAILY Primary Care Provider: Zoie Whitt Referrals: Wes Strauss MD [Med Staff - Active Staff] - As soon as possible Zoie Whitt DO [Primary Care Provider] - 3-5 Days if not improving Activity Restrictions/Additional Instructions: Let Dr. Strauss know you were diagnosed with an infection since you are scheduled for chemo and radiation on November 28. Disposition Disposition: Home, Self Care
[2023-11-22] MEDS: Cephalexin 250 MG Capsule 500 MG PO (03:23)
[2023-11-22] MEDS: Phenazopyridine 95 MG Tablet 190 MG PO (03:24)
[2023-11-22 03:35] VITALS: BP 145/79; PULSE 65; RESP 16; TEMP 36.6; O2SAT 100
== END 2023-11-22 03:39 | disposition home or self-care (01) ==
PROVIDERS: Emergency Provider Emergency Medicine; Visit Provider Emergency Medicine
DX: N30.00 Acute cystitis without hematuria (principal); E11.9 Type 2 diabetes mellitus without complications; N40.0 Benign prostatic hyperplasia without lower urinary tract symptoms; E78.00 Pure hypercholesterolemia, unspecified; I10 Essential (primary) hypertension; Z85.51 Personal history of malignant neoplasm of bladder; Z79.899 Other long term (current) drug therapy; K21.9 Gastro-esophageal reflux disease without esophagitis; Z79.84 Long term (current) use of oral hypoglycemic drugs; Z98.41 Cataract extraction status, right eye; Z98.42 Cataract extraction status, left eye; Z96.649 Presence of unspecified artificial hip joint
CPT/HCPCS: 80048; 81001; 85025; 87086; 99284

== ENCOUNTER → 2023-12-13 | Outpatient (CLI) | payer MEDICARE, SELFPAY ==
--- NOTE | 2023-12-13 12:35 | VDLE_ITS ---
Reason For Study: Left leg swelling RIGHT LEFT CFV is compressible, spontaneous, phasic, GSV is normal. competent and demonstrates normal CFV is compressible, spontaneous, phasic, augmentation. competent, and demonstrates normal Procedure augmentation. This is a venous duplex using B-mode, color FV is compressible, spontaneous, phasic, flow and spectral Doppler. competent and demonstrates normal Exam performed in department. augmentation. A preliminary report was called and/or faxed FV distal is partially compressible with to [place]. bright intraluminal echoes consistent with Chronic DVT. Venous flow noted. PopV is partially compressible with bright intralumial echoes consistent with Chronic DVT. Normal venous flow with augmentation. T/P Trunk is partially comrpessible with bright intraluminal echoes consistent with Chronic DVT. PTV is compressible. LT PerV is compressible. VL/Venous Duplex US, Unilateral Interpretation Summary Chronic deep vein thrombosis is noted in the left femoral vein, popliteal vein, tibioperoneal trunk vein Ordering Physician: Ashleigh Zuniga Referring Physician: Zoie Whitt Performed By: Kassandra Dunn RVT
== END | disposition home or self-care (01) ==
LOC: CVS 12:34
PROVIDERS: Visit Provider Nurse Practitioner Family
DX: R60.0 Localized edema (principal)
CPT/HCPCS: 93971

== ENCOUNTER → 2024-01-11 | Outpatient (CLI) | payer MEDICARE, SELFPAY ==
--- NOTE | 2024-01-11 14:37 | CT_ITS ---
STUDY: CT ABDOMEN AND PELVIS WITH CONTRAST REASON FOR EXAM: Male, 83 years old. ABDOMINAL PAIN, BLADDER CA -- ORAL AND IV CONTRAST RADIATION DOSAGE (If Supplied By Facility): CTDIvol = ( 22.30 ) mGy, DLP = ( 2151.06 ) mGycm TECHNIQUE: Transaxial images were obtained from the dome of the diaphragm to the symphysis pubis without oral contrast. Oral and amp; IV Readi-CAT and amp; 100mL Isovue-300 was administered. Sagittal and coronal images were reconstructed. Individualized dose optimization techniques were used for this CT. COMPARISON: August 16, 2023 FINDINGS: The visualized lung bases are unremarkable. The visualized portions of the heart are within normal limits. Small hiatal hernia noted Normal liver. Multiple calcified gallstones without evidence for pericholecystic edema.. Normal spleen. Normal pancreas. Normal bilateral adrenal glands. Tiny nonobstructing right renal calculus. No evidence for renal obstruction or mass. Normal left kidney. Small epiphrenic gastric diverticulum.. Normal small intestine. Diffusely distended fecal filled colon The appendix is visualized and appears normal. Mild atherosclerotic change of the aorta without evidence for aneurysm. Normal inferior vena cava. Normal retroperitoneum. Nonspecific enlargement of the prostate impinging upon the base of the bladder which is distended and diffusely thick-walled. There is a bladder wall lesion posteriorly on the right demonstrating calcification which may be consistent with neoplasm. Small bilateral fat-containing inguinal hernias. Lumbar spine demonstrates degenerative change. Grade 1 spondylolisthesis at L5-S1. Right hip prosthesis is present CT/Abdomen/Pelvis WITH Contrast IMPRESSION: . Gallstones without evidence for acute cholecystitis.. Diffusely distended fecal filled colon of uncertain etiology Partially calcified bladder wall lesion posteriorly on the right which may be consistent with known bladder carcinoma.. Electronically Signed: Ketan Jorge MD at 22:59 EDT ,
== END | disposition home or self-care (01) ==
LOC: CT 14:37
PROVIDERS: Referring Provider Internal Medicine Medical Oncology; Visit Provider Internal Medicine Medical Oncology
DX: C67.9 Malignant neoplasm of bladder, unspecified (principal); R10.9 Unspecified abdominal pain
CPT/HCPCS: 74177; Q9967

== ENCOUNTER 2024-06-08 11:30 | Outpatient (RCR) | payer MEDICARE, SELFPAY ==
--- NOTE | 2024-04-27 16:56 | HP.PTEVAL_ITS ---
Patient's Visit Information Visit Information Visit Information: ANITA TREJO is a 83 year old M referred to Physical Therapy by Dr. Tanvir Ramos MD with a diagnosis of Peripheral neuropathy. Date of Evaluation: 04/27/24 Physical Therapist: Joel Kessler, JODIET, OCS, CSCS Visit Plan Frequency: 2x /Week Duration: 4-6 Weeks Plan: 2x/week for 4-6 for 1. rollout and stretch quad working on prone/bed mobility trasnfers during.progress to home quad stretch 2. hip and core strength mat and to HEP quickly 3. general strength posture, LE and hips and core to HEP 4. work on coordination of L LE DF to avoid foot slap. IE: instruct HEp with pics of seated toe raises 3x10 adn seated HS stretch 30 x 3 with 15 min walk all 2x/day Subjective Subjective: Saw Dr. Ramos for tremors for years. Geting over CA. Had bladder chemo and still doing immunotherapy. Feels a little weak and unsteady. had chemo through middle March. No pain. Sleeping OK. Too much. Was out picking up mushrooms and bending a lot adn got tired adn fell over as legs gave out. Used to pick them with no problem. Was out there picking for 30 minutes or so. Got up off ground I after resting. says getting out of chair is weak and unstable. has neuropathy form chemo and gait is different as L leg slaps. Retired from work, purchasing. No regular exercises., walks every night 25% of what he used to ...15 min now and used to be 35+ minutes. Hobbies: amateur radio, That is not a problem. working outside is most effected. Basic ADLs bathroom adn shower, steps 2-3 are not a problem but L leg weaker., Dress self. No other falls. Objective Objective: L DF 20-27# DF, R DF 27# L foot slap however with gait as he gets tired. Tightness in gastroc at 0 B DF, HS at -30 90/90 test, prone quad barely to 90 degrees and pulling in back, max tight. Prone trasnfer is weak in core but able I, slow. Chair trasnfer I with UE , struggle without UE. Steps reciprocal with two rails. Hip aROM WFL except extension which is 2 degrees B and weak in extensors 3.Hip rotation with contralateral hip flexion testing adn needs to lean. knee flexion ext 4+,HSC 4 ankles 4- B. reflexes 0/3 patella adnd achilles B. sensation WNL to gross light touch in LE B. Balance/Special Test Scores Functional Gait Assessment Score: 24 % Disability: 20.0000 Lower Extremity Functional Score: 44 30 Second Chair Rise Test Seconds: 14 Goals Goal 1:: Walk without foot slap 400 feet without fatigue. Goal Time Frame: 4-6 Weeks Goal 2:: 16 on 30 SSTS without feeling tired. Goal Time Frame: 4-6 Weeks Goal 3:: Trasnfer bed without increase time or difficulty clearing legs Goal Time Frame: 4-6 Weeks Goal 4:: Pt feel back to 100% of his strength and mobility Goal Time Frame: 4-6 Weeks Rehabilitation Potential Physical Therapy Diagnosis: unsteadiness and weakness contirbuting to mobility concerns. Rehabilitation Potential: Good Anticipated Interventions Patient/Client Instruction: Educate patient on: Condition and Plan of Care For the Purpose of:: To increase ROM, To improve nutrient delivery to tissue, To improve muscle performance and motor function, To increase tolerance to activity/condition/position, To improve ability of physical actions for home/community/work/leisure and To improve gait and locomotor functions Therapeutic Exercise to Include: Strength training, Postural training, Flexibilty training, Gait and locomotor training, Passive ROM and Active ROM For the Purpose of:: To increase ROM, To improve nutrient delivery to tissue, To improve muscle performance and motor function, To increase tolerance to activity/condition/position, To improve gait and locomotor functions and To improve safety Manual Therapy Techniques to Include: Passive ROM and Soft tissue mobilization For the Purpose of:: To improve gait and locomotor functions Text: Thank you for the opportunity to evaluate your patient. For Medicare and Medicare HMO plans, please review the plan of care and approve it. It will need to be FAXED BACK to us at [phone] for Medicare purposes. For Medicare only, by signing this I certify the plan of care. Please let me know if there are questions or concerns regarding this plan of care. Physician Signature: Date:
--- NOTE | 2024-06-08 12:09 | HP.PTDCSUM ---
Discharge Summary D/C summary: It has been my pleasure to treat ANITA TREJO referred by Dr. Tanvir Ramos MD, with the diagnosis of Peripheral neuropathy for a total of 8 visit(s). Discharge Date: 06/08/24 Please see the following information for a summary of their discharge status. Subjective Subjective: I am doing OK. I am doing good. Family says they are seeing strength improvements. hardly ever doing home exercises. Walking nightly 20 minutes. Still tired all day but will get last immunotherapy next week. Wants to mow yard with walk behind. Takes one hour. Overall Improvement % Improvement: 90 Objective Objective/Function: 30 SSTS is improving all the time. Gait is I with slight wide ELVI and R foot slap after 40 feet >L Overall doing well and back to normal minus feeling fatigued all the which he feels is due to immunotherapy which he may stop next week. Goals Goal 1:: Walk without foot slap 400 feet without fatigue. Goal Progress: Goal Met Goal 2:: 16 on 30 SSTS without feeling tired. Goal Progress: Goal Met Goal 3:: Trasnfer bed without increase time or difficulty clearing legs Goal Progress: Goal Met Goal 4:: Pt feel back to 100% of his strength and mobility Goal Progress: 90 Plan Plan: d/c, to do HEP as he feels his energy levels rise and increase walk distance D/C Information d/c sentence: If there are questions or concerns regarding this patient's physical therapy, please feel free to call me at [phone]. Thank you for the referral of this patient. Sincerely, Joel Kessler, DPT, OCS, CSCS Balance/Gait/Functional tests Balance/Special Test Scores Functional Gait Assessment Score: 25 % Disability: 16.6700 Lower Extremity Functional Score: 48 30 Second Chair Rise Test Seconds: 19 Improvement % Improvement: 90
== END 2024-06-08 19:00 | disposition home or self-care (01) ==
LOC: PT 11:30
PROVIDERS: Referring Provider Psychiatry & Neurology Neurology; Visit Provider Psychiatry & Neurology Neurology
DX: G62.0 Drug-induced polyneuropathy (principal)
CPT/HCPCS: 97110; 97161; 97530

== ENCOUNTER → 2024-08-19 | Outpatient (CLI) | payer MEDICARE, SELFPAY ==
[2024-08-19 12:08] LABS: Anion Gap 4 (5-15); BUN 18 mg/dL (7-18); BUN/Creat Ratio 19.9 RATIO (10-20); Calcium,Total 9.5 mg/dL (8.5-10.1); Chloride 110 mmol/L (98-107); EST Glomerular Filtration Rate 85 mL/min (>60); Est Glom Filt Rate - Afr Amer 103 mL/min (>60); Glucose 123 mg/dL (74-106); Potassium 4.2 mmol/L (3.5-5.1); Sodium Level 138 mmol/L (136-145)
== END | disposition home or self-care (01) ==
LOC: LAB 11:13
PROVIDERS: Referring Provider Nurse Practitioner Primary Care; Visit Provider Nurse Practitioner Primary Care
DX: N17.9 Acute kidney failure, unspecified (principal)
CPT/HCPCS: 36415; 80048

== ENCOUNTER 2024-08-26 20:28 | Emergency (ER) | payer MEDICARE, SELFPAY ==
[2024-08-26 20:30] VITALS: BP 133/73; PULSE 73; RESP 18; TEMP 36.3; O2SAT 99; BMI 25.0
--- NOTE | 2024-08-26 20:48 | RAD_ITS ---
EXAM: XR LEFT SHOULDER COMPLETE, 2 OR MORE VIEWS CLINICAL INDICATION: fall TECHNIQUE: Two or more views of the left shoulder. COMPARISON: No relevant prior studies available. FINDINGS: BONES/JOINTS: There is narrowing of the acromioclavicular joint. No acute fracture. No subluxation. Normal alignment. No sclerotic or destructive changes observed. SOFT TISSUES: Unremarkable. No soft tissue swelling or gas. No radiopaque foreign body. RAD/Shoulder min 2 Views IMPRESSION: 1. No acute osseous abnormalities. 2. Degenerative changes with narrowing of the acromioclavicular joint. Electronically Signed: Juliano Brown MD at 22:34 EST ,
--- NOTE | 2024-08-26 20:49 | EDS_ITS ---
HPI HPI - Fall History of Present Illness Chief Complaint: Fall Informant: patient and spouse/S.O. Occured/Mechanism Occurred: Today Mechanism/Context: Yes same level fall and Yes slip Usually ambulates: Without assistance Pain/Injury Pain Location: upper extremity (Left shoulder and left wrist.) Quality of Pain: Dull Current Severity: Mild Maximum Severity: Mild Associated Symptoms Associated Symptoms: Negative for Parasthesias, Weakness, Loss of function, Inability to ambulate, Loss of consciousness or Amnesia Narrative Narrative: 83-year-old male with past medical history of diabetes and bladder cancer on immunotherapy. He was outside slipped on the icy wet ground hitting his left shoulder and left wrist. This occurred less than or equal to an hour ago. De nies any LOC or significant head injury. He is on no blood thinners. Denies any neck, back chest or abdominal pain. is with him and verifies the story. Prior similar symptoms: No Recent Illness/Hospitalization: No PFSH PFSH Medical History Increase in creatinine UTI (urinary tract infection) Anemia Steppage gait determined by examination Sensory neuropathy Dehydration Encounter for chemotherapy management Diarrhea Dysuria Constipation Fatigue Weight loss Edema of left lower extremity Candidiasis Oral candidiasis Encounter for education Loss of hearing Wears glasses Cancer Alcohol use Diabetes Bladder disease Prostate disease DVT (deep venous thrombosis) High cholesterol Tremor History of hiatal hernia Gastric reflux Non-smoker Neuropathy History of pain when walking History of stress test Hypertension Hx of fracture of ankle Home Medications ?Medication ?Instructions ?Recorded ?Last Taken ?Type finasteride 5 mg tablet 5 mg PO QHS 10/18/13 11/15/23 History nadolol 80 mg tablet (Corgard) 80 mg PO DAILY 09/14/14 11/15/23 History omeprazole 20 mg capsule,delayed 20 mg PO DAILY PRN indigestion 09/14/14 11/15/23 History release amlodipine 5 mg tablet 5 mg PO DAILY 02/20/19 11/15/23 History tamsulosin 0.4 mg capsule 0.4 mg PO QHS 02/20/19 11/15/23 History cholecalciferol (vitamin D3) 50 50 mcg PO DAILY 09/10/23 11/15/23 History mcg (2,000 unit) capsule (Vitamin D3) rosuvastatin 5 mg tablet 5 mg PO 1200 09/10/23 11/15/23 History topiramate 25 mg tablet 25 mg PO DAILY 09/10/23 11/15/23 History lisinopril 20 mg tablet 40 mg PO DAILY 10/08/23 11/15/23 History lidocaine-prilocaine 2.5 %-2.5 % 1 applic topical ONCE PRN port 11/08/23 11/15/23 Rx topical cream access 30 days #30 grams ondansetron 4 mg disintegrating 4 mg PO Q8H PRN nausea and 11/08/23 Unknown Rx tablet vomiting #30 tabs prochlorperazine maleate 10 mg 10 mg PO Q6H PRN nausea and 11/08/23 Unknown Rx tablet vomiting #30 tabs diaper,brief,adult,disposable (ATN #96 ea 12/06/23 Unknown Rx Brief) nystatin 100,000 unit/gram topical 1 applic topical BID #60 grams 12/13/23 Unknown Rx powder potassium chloride 20 mEq 20 meq PO DAILY #14 tabs 01/17/24 Unknown Rx tablet,extended release Allergy/AdvReac Type Severity Reaction Status Date / Time fenofibrate (From Tricor) Allergy Rash Verified 08/26/24 20:29 hydrochlorothiazide Allergy Rash Verified 08/26/24 20:29 niacin Allergy Rash Verified 08/26/24 20:29 tetracycline (Tetracycline) Allergy Hives Verified 08/26/24 20:29 tramadol Allergy Hives Verified 08/26/24 20:29 ciprofloxacin (From Cipro) AdvReac Nausea/Vom/ Verified 08/26/24 20:29 Diarrhea Surgical History History of ankle surgery History of transurethral resection of prostate History of tonsillectomy H/O cystoscopy Hx of left cataract extraction Hx of right cataract extraction Hx of esophagogastroduodenoscopy Hx of colonoscopy Hx of total hip arthroplasty Social History household members: spouse Smoking Status: Never smoker substance use type: does not use ROS ROS ED ROS Narrative Denies recent illness. Constitutional Constitutional ED: Denies chills or fever(s) Eyes Eyes: Denies blurry vision ENT ENT ED: Denies ear pain Cardiovascular Cardiovascular: Denies chest pain Respiratory/Chest Respiratory/Chest: Denies cough or dyspnea Gastrointestinal Gastrointestinal: Denies abdominal pain Genitourinary Genitourinary ED: Denies dysuria Musculoskeletal Musculoskeletal: Denies arthralgias Integumentary Denies abscess Neurologic Neurologic: Denies headache(s) Psychiatric Psychiatric: Denies anxiety or depression Endocrine Endocrinology: Denies polydipsia Hematologic/Lymphatic Hematologic/Lymphatic: Denies easy bleeding Allergic/Immunologic Allergic/Immunologic ED: Denies mouth swelling EXAM Physical Exam Narrative Exam Narrative: 83-year-old male standing at bedside. seated at bedside. Vital signs are stable afebrile. He is no acute distress. He is awake and alert. H EENT exam pupils round reactive light. No significant signs of trauma to his face. He might have a minimal contusion to his cheek. There is no bleeding or bruising at this time. Is nontender. Pupils round reactive light. Extra motions are intact. Scalp nontender. No hematoma or abrasions. No lacerations. Neck nontender. Full range of motion. Back and spine nontender. Chest wall and ribs nontender. Lungs clear. Heart regular rhythm rate about 70 no murmur. Abdomen soft nontender. Pelvic girdle intact. He is able to stand without any difficulty. Neither lower extremity has any tenderness, swelling or deformity. Normal range of motion. 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 Normal range of motion of his right shoulder and elbow. He has minimal anterior left shoulder tenderness. There is no deformity. He can lift his arm over his head. He has normal flexion extension shoulder. Elbow is nontender. Forearm is nontender except for mild tenderness at his wrist medially. There is no deformity. Normal range of motion. Normal flexion extension. No swelling. 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 Neurologically is awake and alert. Answer questions following commands. GCS of 15. Const Vital Signs: 08/26/24 20:30 08/26/24 20:52 Temperature 97.3 F L Temperature Source Temporal Pulse Rate 73 Respiratory Rate 18 Respiratory Effort Normal Respiratory Depth Normal Respiratory Pattern Normal Blood Pressure 133/73 H Blood Pressure Mean 93 Pulse Ox 99 Oxygen Delivery Method Room Air Room Air Positive well nourished and well developed; Negative for obese, cachectic, contractures or unkempt General Appearance ED: well developed and NAD; Negative for unkempt, cachectic or contractures Nutritional Appearance: Negative for cachectic or obese HEENT Reports normocephalic HEENT Narrative: Minor contusion left cheek. No hematoma or lacerations. Nontender contusion; Negative for atraumatic, hematoma or tenderness Eyes PERRL and EOMs intact bilaterally Neck full ROM, no lymphadenopathy and supple Chest Wall inspection of chest normal and palpation of chest normal Resp normal respiratory effort, no retractions and clear to auscultation bilaterally Cardio regular rate, regular rhythm, S1 normal heart sound, S2 normal heart sound and no murmurs GI non-tender, non-distended and no masses Palpation: soft; Negative for guarding Back/Spine no CVA tenderness General Back: Negative for CVA tenderness Cervical Spine: Negative for cervical spine tenderness Lumbar Spine / Lower Back: Negative for lumbar spinal tenderness Neuro oriented x3, CN's II-XII intact bilaterally, moves all extremities and no focal motor deficits Daniel Coma Scale: document GCS findings Spontaneous Obeys Commands Oriented 15 Sensorium / Orientation: alert, oriented to person, oriented to place and oriented to time; Negative for orientation impaired, confused or lethargic Motor Exam: strength 5/5 throughout Psych mental status grossly normal and thought process normal Appearance: Negative for unkempt Attitude: No agitated Mood & Affect: Negative for depressed, anxious or tearful Skin Lesions: no lesions Rashes: no rashes MDM MDM MDM Narrative Medical decision making narrative: 83-year-old male slipped on the ice hit his left arm and left wrist. He is got good range of motion without deformity or any significant tenderness. X-rays are going to be obtained. He has no significant head injury is on no blood thinners. He is a normal neurologic exam. I do not think he needs a CAT scan of his head. He does need a blood work. He and his are comfortable with the plan. He did not want a thing for pain. Repeat exam patient doing well at 9:46 PM. Moving all extremities. Awake and alert. Exam is unchanged. We went over his x-ray results of both his left shoulder and wrist which were negative. He and his are comfortable him being discharged home. History & Record Review Discussion w/independent historian: Patient and Family Radiography Diagnostic Testing: Left wrist x-ray, 3 views, interpreted by myself shows no acute fracture. No dislocation. Chronic arthritic changes. Left shoulder x-ray, 2 views, interpreted myself shows no acute fracture or dislocation. Chronic arthritic changes. Discharge Plan Triage Chief Complaint: Fall ED Provider: Devin Nielsen Dx/Rx/DC Orders Clinical Impression: Fall, Contusion of shoulder, Contusion of left wrist Instructions: ED Contusion, Upper Extremity Prescriptions: No Action lidocaine-prilocaine 2.5-2.5 % cream 1 applic topical ONCE PRN (Reason: port access) 30 Days Qty: 30 2RF ondansetron 4 mg tablet,disintegrating 4 mg PO Q8H PRN (Reason: nausea and vomiting) Qty: 30 2RF prochlorperazine maleate 10 mg tablet 10 mg PO Q6H PRN (Reason: nausea and vomiting) Qty: 30 2RF nystatin 100,000 unit/gram powder 1 applic topical BID Qty: 60 0RF finasteride 5 MG tablet 5 mg PO QHS nadolol [Corgard] 80 MG tablet 80 mg PO DAILY omeprazole 20 MG capsule 20 mg PO DAILY PRN (Reason: indigestion) lisinopril 20 mg tablet 40 mg PO DAILY amlodipine 5 MG tablet 5 mg PO DAILY tamsulosin 0.4 MG capsule 0.4 mg PO QHS topiramate 25 mg tablet 25 mg PO DAILY rosuvastatin 5 mg tablet 5 mg PO 1200 cholecalciferol (vitamin D3) [Vitamin D3] 50 mcg (2,000 unit) capsule 50 mcg PO DAILY (DME) ATN Brief Misc See Rx Instructions .Route Qty: 96 0RF Rx Instructions: As directed potassium chloride 20 mEq tablet extended release 20 meq PO DAILY Qty: 14 0RF Primary Care Provider: Zoie Whitt Referrals: Zoie Whitt, [Primary Care Provider] - 1 Week if not improving Activity Restrictions/Additional Instructions: Ice to your shoulder and wrist. Tylenol for pain. Follow-up with your doctor if not improving or return if worse. Print Language: Yi Disposition Disposition: Home, Self Care
--- NOTE | 2024-08-26 21:00 | RAD_ITS ---
EXAM: XR LEFT WRIST COMPLETE, 3 OR MORE VIEWS CLINICAL INDICATION: fall TECHNIQUE: Frontal, lateral and oblique views of the left wrist. COMPARISON: No relevant prior studies available. FINDINGS: BONES/JOINTS: Unremarkable. No acute fracture. No subluxation. Normal alignment. Preservation of the joint space. No sclerotic or destructive changes observed. SOFT TISSUES: Unremarkable. No soft tissue swelling or gas. No radiopaque foreign body. RAD/Wrist min 3 Views IMPRESSION: Negative left wrist x-rays. Electronically Signed: Juliano Brown MD at 22:35 EST ,
[2024-08-26 22:01] VITALS: BP 133/73; PULSE 73; RESP 18; TEMP 36.3; O2SAT 99
== END 2024-08-26 22:02 | disposition home or self-care (01) ==
PROVIDERS: Emergency Provider Emergency Medicine; Visit Provider Emergency Medicine
DX: S60.212A Contusion of left wrist, initial encounter (principal); E11.9 Type 2 diabetes mellitus without complications; I10 Essential (primary) hypertension; E78.00 Pure hypercholesterolemia, unspecified; S40.012A Contusion of left shoulder, initial encounter; W00.0XXA Fall on same level due to ice and snow, initial encounter; Y92.89 Other specified places as the place of occurrence of the external cause; Z85.51 Personal history of malignant neoplasm of bladder; Z79.899 Other long term (current) drug therapy; K21.9 Gastro-esophageal reflux disease without esophagitis; Z98.41 Cataract extraction status, right eye; Z98.42 Cataract extraction status, left eye; Z96.649 Presence of unspecified artificial hip joint
CPT/HCPCS: 73030; 73110; 99282

== ENCOUNTER 2024-10-16 23:46 | Emergency (ER) | payer MEDICARE, SELFPAY ==
[2024-10-16 23:47] VITALS: BP 121/71; PULSE 69; RESP 18; TEMP 35.9; O2SAT 95; BMI 26.4
--- NOTE | 2024-10-17 00:21 | EX.ED.DYSGE1 ---
HPI History of Present Illness Chief Complaint: Lower Extremity Injury Narrative Narrative: Patient is a 83-year-old male with past medical history of bladder cancer, DVT not on anticoagulation, GERD, neuropathy who presented to the emerged part with concern of DVT in his left lower extremity. Patient states that he has had pain in the left lower leg starting yesterday. was concerned that he had a DVT and they cannot recall of why he had his previous DVT but it was several years ago. Patient denies any recent travels denies any injury or recent surgeries. Denies any shortness of breath and chest pain. [facility] Medical History Malignant neoplasm of trigone of bladder Increase in creatinine UTI (urinary tract infection) Anemia Steppage gait determined by examination Sensory neuropathy Dehydration Encounter for chemotherapy management Diarrhea Dysuria Constipation Fatigue Weight loss Edema of left lower extremity Candidiasis Oral candidiasis Encounter for education Loss of hearing Wears glasses Cancer Alcohol use Diabetes Bladder disease Prostate disease DVT (deep venous thrombosis) High cholesterol Tremor History of hiatal hernia Gastric reflux Non-smoker Neuropathy History of pain when walking History of stress test Hypertension Hx of fracture of ankle Home Medications ?Medication ?Instructions ?Recorded ?Last Taken ?Type finasteride 5 mg tablet 5 mg PO QHS 10/18/13 11/15/23 History nadolol 80 mg tablet (Corgard) 80 mg PO DAILY 09/14/14 11/15/23 History omeprazole 20 mg capsule,delayed 20 mg PO DAILY PRN indigestion 09/14/14 11/15/23 History release amlodipine 5 mg tablet 5 mg PO DAILY 02/20/19 11/15/23 History tamsulosin 0.4 mg capsule 0.4 mg PO QHS 02/20/19 11/15/23 History cholecalciferol (vitamin D3) 50 50 mcg PO DAILY 09/10/23 11/15/23 History mcg (2,000 unit) capsule (Vitamin D3) rosuvastatin 5 mg tablet 5 mg PO 1200 09/10/23 11/15/23 History topiramate 25 mg tablet 25 mg PO DAILY 09/10/23 11/15/23 History lisinopril 20 mg tablet 40 mg PO DAILY 10/08/23 11/15/23 History lidocaine-prilocaine 2.5 %-2.5 % 1 applic topical ONCE PRN port 11/08/23 11/15/23 Rx topical cream access 30 days #30 grams prochlorperazine maleate 10 mg 10 mg PO Q6H PRN nausea and 11/08/23 Unknown Rx tablet vomiting #30 tabs diaper,brief,adult,disposable (ATN #96 ea 12/06/23 Unknown Rx Brief) potassium chloride 20 mEq 20 meq PO DAILY #14 tabs 01/17/24 Unknown Rx tablet,extended release Allergy/AdvReac Type Severity Reaction Status Date / Time fenofibrate (From Tricor) Allergy Rash Verified 10/16/24 23:47 hydrochlorothiazide Allergy Rash Verified 10/16/24 23:47 niacin Allergy Rash Verified 10/16/24 23:47 tetracycline (Tetracycline) Allergy Hives Verified 10/16/24 23:47 tramadol Allergy Hives Verified 10/16/24 23:47 ciprofloxacin (From Cipro) AdvReac Nausea/Vom/ Verified 10/16/24 23:47 Diarrhea Surgical History History of sinus surgery History of ankle surgery History of transurethral resection of prostate History of tonsillectomy H/O cystoscopy Hx of left cataract extraction Hx of right cataract extraction Hx of esophagogastroduodenoscopy Hx of colonoscopy Hx of total hip arthroplasty Social History household members: spouse Smoking Status: Never smoker substance use type: does not use ROS ROS ED ROS Narrative Constitutional: Denies fevers, chills, headaches Cardiovascular: Denies chest pain or palpitations Respiratory: Denies coughing wheezing shortness of breath Abdomen: Denies nausea vomiting Neurological: Denies any numbness, weakness, tingling Musculoskeletal: Complains of left leg pain as noted above Skin: Complains of chronic skin changes to his lower extremities EXAM Physical Exam Narrative Exam Narrative: General: Patient is lying in bed rest comfortably did not appear to be in acute distress Head: Atraumatic, normocephalic Eyes: PERRL bilateral, EOMI biotic no conjunctival injection noted Neck: Soft, supple, trachea midline Cardiovascular: Regular in rhythm Respiratory: Clear to auscultation bilaterally Musculoskeletal: Compartments soft and compressible bilaterally in lower extremities, all bony prominences palpated joints taken to full range of motion no pain elicited Extremities: DP pulses dopplerable as well as PT pulses in the bilateral lower extremities, 1+ pitting edema in the bilateral lower extremities, +5/5 strength noted in the bilateral upper and lower extremities Neurological: Patient following commands knew that he was at [facility] year is 2024. Sensation grossly intact in the bilateral lower extremities Skin: Warm, dry, chronic skin changes noted to the bilateral lower extremities no concern for cellulitis Const Vital Signs: 10/16/24 23:47 Temperature 96.7 F L Temperature Source Temporal Pulse Rate 69 Respiratory Rate 18 Blood Pressure 121/71 H Blood Pressure Mean 87 Pulse Ox 95 Oxygen Delivery Method Room Air MDM MDM MDM Narrative Medical decision making narrative: Patient is a 83-year-old male who presented to the emerged department with a chief complaint of concern for a DVT in his left lower extremity. On the differential diagnose includes but limited to DVT, superficial venous thrombosis, musculoskeletal strain. At this point time there is no ultrasound available therefore the patient will be given a shot of Lovenox and will be given a prescription for outpatient ultrasound DVT study tomorrow morning. They are advised to return for this study. Encouraged to return for worsening symptoms and concerns agreeable this plan all question concerns answered is discharged home in stable condition. Patient given 40 mg of Lovenox. Patient has no contraindications at this point time for this medication. Discharge Plan Triage Chief Complaint: Lower Extremity Injury ED Provider: Andrzej Coffey Dx/Rx/DC Orders Clinical Impression: Left leg pain Prescriptions: No Action lidocaine-prilocaine 2.5-2.5 % cream 1 applic topical ONCE PRN (Reason: port access) 30 Days Qty: 30 2RF prochlorperazine maleate 10 mg tablet 10 mg PO Q6H PRN (Reason: nausea and vomiting) Qty: 30 2RF finasteride 5 MG tablet 5 mg PO QHS nadolol [Corgard] 80 MG tablet 80 mg PO DAILY omeprazole 20 MG capsule 20 mg PO DAILY PRN (Reason: indigestion) lisinopril 20 mg tablet 40 mg PO DAILY amlodipine 5 MG tablet 5 mg PO DAILY tamsulosin 0.4 MG capsule 0.4 mg PO QHS topiramate 25 mg tablet 25 mg PO DAILY rosuvastatin 5 mg tablet 5 mg PO 1200 cholecalciferol (vitamin D3) [Vitamin D3] 50 mcg (2,000 unit) capsule 50 mcg PO DAILY (DME) ATN Brief Misc See Rx Instructions .Route Qty: 96 0RF Rx Instructions: As directed potassium chloride 20 mEq tablet extended release 20 meq PO DAILY Qty: 14 0RF Other Ambulatory Orders: Venous Duplex US, Unilateral (Stat) Facility: [facility] - Location: [facility] Ordered By: Dr. Andrzej Coffey Primary Care Provider: Zoie Whitt Referrals: Zoie Whitt, [Primary Care Provider] - Activity Restrictions/Additional Instructions: Return tomorrow for the ultrasound of your leg. Return with worse symptoms or any concerns Print Language: Uzbek Disposition Disposition: Home, Self Care
[2024-10-17] MEDS: Enoxaparin 40 MG/0.4 ML Syringe SC (00:48)
== END 2024-10-17 01:08 | disposition home or self-care (01) ==
PROVIDERS: Emergency Provider Emergency Medicine; Visit Provider Emergency Medicine
DX: M79.605 Pain in left leg (principal); E11.9 Type 2 diabetes mellitus without complications; Z86.718 Personal history of other venous thrombosis and embolism; E78.00 Pure hypercholesterolemia, unspecified; I10 Essential (primary) hypertension; Z85.51 Personal history of malignant neoplasm of bladder; K21.9 Gastro-esophageal reflux disease without esophagitis; Z79.899 Other long term (current) drug therapy; Z98.41 Cataract extraction status, right eye; Z98.42 Cataract extraction status, left eye; Z96.649 Presence of unspecified artificial hip joint
CPT/HCPCS: 96372; 99284

== ENCOUNTER → 2024-10-17 | Outpatient (CLI) | payer MEDICARE, SELFPAY ==
--- NOTE | 2024-10-17 12:44 | VDLE_ITS ---
Reason For Study Reason For Study: Pain RIGHT LEFT CFV is compressible, spontaneous, phasic, competent GSV is normal. and demonstrates normal augmentation. CFV is compressible, spontaneous, phasic, competent, Procedure and demonstrates normal augmentation. This is a venous duplex using B-mode, color flow and FV is compressible, spontaneous, phasic, competent spectral Doppler. and demonstrates normal augmentation. Exam performed in department. POP V is compressible, spontaneous, phasic, competent and demonstrates normal augmentation. T/P Trunk is compressible. PTV is compressible. LT PerV is compressible. VL/Venous Duplex US, Unilateral Interpretation Summary Deep veins of the left lower extremity are patent and compressible segmentally. There is no evidence of left lower extremity deep vein thrombosis. The left great saphenous vein appears patent an d compressible segmentally. Ordering Physician: Andrzej Coffey Referring Physician: Andrzej Coffey Performed By: Kassandra Dunn RVT and Student
== END | disposition home or self-care (01) ==
PROVIDERS: Referring Provider Emergency Medicine; Visit Provider Emergency Medicine
DX: M79.605 Pain in left leg (principal)
CPT/HCPCS: 93971

== ENCOUNTER 2024-11-01 08:25 | Outpatient (RCR) | payer MEDICARE, SELFPAY ==
[2024-11-01 08:45] VITALS: BP 147/72; PULSE 55; RESP 18; TEMP 36.1
--- NOTE | 2024-11-01 12:57 | PCM.WC.HP ---
History of Present Illness Date of Service: 11/01/24 Chief Complaint: Left lower leg wound. History of Wound: 84-year-old white male who developed an open sore on his left lower leg it has been very tender to touch. 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 He complains of swelling in that leg but does wear a compression stocking per . They went to the emergency room and had a ultrasound done of the leg for DVT and it was negative. [facility] Medical History Malignant neoplasm of trigone of bladder Increase in creatinine UTI (urinary tract infection) Anemia Steppage gait determined by examination Sensory neuropathy Dehydration Encounter for chemotherapy management Diarrhea Dysuria Constipation Fatigue Weight loss Edema of left lower extremity Candidiasis Oral candidiasis Encounter for education Loss of hearing Wears glasses Cancer Alcohol use Diabetes Bladder disease Prostate disease DVT (deep venous thrombosis) High cholesterol Tremor History of hiatal hernia Gastric reflux Non-smoker Neuropathy History of pain when walking History of stress test Hypertension Hx of fracture of ankle Home Medications ?Medication ?Instructions ?Recorded ?Last Taken ?Type finasteride 5 mg tablet 5 mg PO QHS 10/18/13 11/15/23 History nadolol 80 mg tablet (Corgard) 80 mg PO DAILY 09/14/14 11/15/23 History omeprazole 20 mg capsule,delayed 20 mg PO DAILY PRN indigestion 09/14/14 11/15/23 History release tamsulosin 0.4 mg capsule 0.4 mg PO QHS 02/20/19 11/15/23 History cholecalciferol (vitamin D3) 50 50 mcg PO DAILY 09/10/23 11/15/23 History mcg (2,000 unit) capsule (Vitamin D3) rosuvastatin 5 mg tablet 5 mg PO 1200 09/10/23 11/15/23 History topiramate 25 mg tablet 25 mg PO DAILY 09/10/23 11/15/23 History lisinopril 20 mg tablet 40 mg PO DAILY 10/08/23 11/15/23 History lidocaine-prilocaine 2.5 %-2.5 % 1 applic topical ONCE PRN port 11/08/23 11/15/23 Rx topical cream access 30 days #30 grams prochlorperazine maleate 10 mg 10 mg PO Q6H PRN nausea and 11/08/23 Unknown Rx tablet vomiting #30 tabs diaper,brief,adult,disposable (ATN #96 ea 12/06/23 Unknown Rx Brief) potassium chloride 20 mEq 20 meq PO DAILY #14 tabs 01/17/24 Unknown Rx tablet,extended release Allergy/AdvReac Type Severity Reaction Status Date / Time fenofibrate (From Tricor) Allergy Rash Verified 10/16/24 23:47 hydrochlorothiazide Allergy Rash Verified 10/16/24 23:47 niacin Allergy Rash Verified 10/16/24 23:47 tetracycline (Tetracycline) Allergy Hives Verified 10/16/24 23:47 tramadol Allergy Hives Verified 10/16/24 23:47 ciprofloxacin (From Cipro) AdvReac Nausea/Vom/ Verified 10/16/24 23:47 Diarrhea Surgical History History of sinus surgery History of ankle surgery History of transurethral resection of prostate History of tonsillectomy H/O cystoscopy Hx of left cataract extraction Hx of right cataract extraction Hx of esophagogastroduodenoscopy Hx of colonoscopy Hx of total hip arthroplasty Social History household members: spouse Smoking Status: Never smoker substance use type: does not use ROS Constitutional Constitutional: Reports systems reviewed and no addt'l complaints, except as documented Eyes Eyes: Reports systems reviewed and no addt'l complaints, except as documented ENT HEENT: Reports systems reviewed and no addt'l complaints, except as documented Cardiovascular Cardiovascular: Reports systems reviewed and no addt'l complaints, except as documented Respiratory/Chest Respiratory/Chest: Reports systems reviewed and no addt'l complaints, except as documented Gastrointestinal Gastrointestinal: Reports systems reviewed and no addt'l complaints, except as documented Genitourinary Genitourinary: Reports systems reviewed and no addt'l complaints, except as documented Musculoskeletal Musculoskeletal: Reports systems reviewed and no addt'l complaints, except as documented Integumentary Integumentary: Reports wounds and other Details: Open wound superficial on left lower leg with a prominent vessel in the leg seems to be inflamed. Neurologic Neurologic: Reports systems reviewed and no addt'l complaints, except as documented Psychiatric Psychiatric: Reports systems reviewed and no addt'l complaints, except as documented Endocrine Endocrinology: Reports systems reviewed and no addt'l complaints, except as documented Hematologic/Lymphatic Hematologic/Lymphatic: Reports systems reviewed and no addt'l complaints, except as documented Allergic/Immunologic Allergic/Immunologic: Reports systems reviewed and no addt'l complaints, except as documented Vital Signs Vital Signs Vital Signs: 11/01/24 08:45 Temperature 96.9 F L Temperature Source Temporal Pulse Rate 55 L Respiratory Rate 18 Blood Pressure 147/72 H Blood Pressure Mean 97 Blood Pressure Source Monitor Blood Pressure Position Sitting Blood Pressure Location Right Arm Oxygen Delivery Method Room Air Physical Exam Const oriented x3 General Appearance: cooperative Exam Limitations: no limitations HEENT normocephalic Face and Sinus: normal facial exam Eyes General Eye: normal appearance of both eyes Neck full ROM General: normal visual inspection Resp normal respiratory effort Effort and Inspection: able to speak in complete sentences Auscultation: clear to auscultation bilaterally Cardio regular rate and regular rhythm Palpation: normal PMI Rate: regular rate Rhythm: regular rhythm Extremity General Extremity: normal exam except as noted and other findings Other Details: Left lower leg tenderness with an open ulcer and a prominent tender vein superficial ; Negative for no tenderness to palpation of joints or extremities Skin Wounds: wounds noted Wound Narrative: Superficial open wound is close to the ankle but on the left lower leg at the base of a prominent vein. Neuro oriented x3 Psych Appearance: grossly normal Speech: normal speech Thought Content: normal thought content Judgement: judgement good Debridement Note Debridement Note Wound debrided: Nonhealing ulcer left lower leg Laterality: Left Type of Debridement: Excisional debridement Anesthesia Used: 5% Lidocaine Gel Depth: in the subcutaneous layer Percentage of wound debrided: 100 Instrument Used: 5mm curette Severity: Fat Layer Exposed Bleeding Controlled with: Compression and gauze Patient tolerated procedure: Patient tolerated procedure well Post-Debridement Measurements and Additional Note: Post-Debridement Measurements/Treatment - Nurse 1 - General Ulcer Assessment Start: 11/01/24 08:44 Freq: Status: Active Protocol: EFFIE Activity Type Activity Date Activity User E-sign Co-sign Detail Recorded Client Recorded Date Recorded By Document 11/01/24 08:45 [place] [id number] 11/01/24 08:53 MT 11/01/24 08:45 WC - Today's Visit Information Type of service Follow-up Visit (Physician/MAINTENANCE REPRESENTATIVE ) Arrival Mode Ambulatory Accompanied by Patient Identification Verified (Name & Yes ) Safety Precautions Fall Prevention Blood Sugar Stated by Patient Vital Signs Temperature (97.8 F-99.1 F) 96.9 F L Temperature Source Temporal Pulse Rate (60-100) 55 L Pulse Location Monitor Respiratory Rate (12-18) 18 Respiratory rate source Observation Oxygen Delivery Method Room Air Blood Pressure (90/60-120/80) 147/72 H Blood Pressure Mean 97 Source Monitor Position Sitting Blood Pressure Location Right Arm History Since Last Visit- (Skip if this is Patient's initial visit) Has dressing in place as prescribed Yes Has compression in place as prescribed Yes Has offloadiing in place as prescribed Yes Experienced any changes in pain level or Yes management Left Footwear Regular Shoe Right Footwear Regular Shoe Pain Scale: 0-10 Numeric Is Patient Pain Free? Yes - Nurse 1 - General Ulcer Measurement Start: 11/01/24 08:44 Freq: Status: Active Protocol: Activity Type Activity Date Activity User E-sign Co-sign Detail Recorded Client Recorded Date Recorded By Document 11/01/24 08:45 WA [id number] 11/01/24 08:53 [place] 11/01/24 08:45 Wound Center Nurse 1 #1 Left Lower Leg -Current Size (cm) - Length 0.1 -Current Size (cm) - Width 0.1 -Current Size (cm) - Depth 0.1 -Total Square Cm 0.01 -Date of Last Picture (Recall this 11/01/24 field) -Photo Taken Yes -Epithelialization Large 67-100% -Tunneling No -Undermining/Tunneling No -Circular Undermining No -Exudate Amt None Present -Wound Margin Flat & Intact -Granulation Amt Large (67-100%) -Granulation Quality Pale,[place] -Slough/Fibrin No -Texture (Yudy-wound Skin Appearance) Assessed -Moisture (Yudy-wound Skin Appearance) Assessed -Color (Yudy-wound Skin Appearance) Assessed -Temperature (Yudy-wound Skin No Abnormality Appearance) (Pt Warm) -Tenderness on Palpation (Yudy-wound No Skin Appearance) -Ulcer Cleansing Rinsed/ Irrigated with Saline -Foul Odor after Cleansing No Left Calf (cm) 35 Left Ankle (cm) 24 - Nurse 2 - General Ulcer CM Notes Start: 11/01/24 08:44 Freq: Status: Active Protocol: Activity Type Activity Date Activity User E-sign Co-sign Detail Recorded Client Recorded Date Recorded By Document 11/01/24 09:00 [facility] [id number] 11/01/24 09:07 [facility] 11/01/24 09:00 Wound Center Nurse 2 #1 Left Lower Leg -Time 09:02 -Correct Patient Yes -Correct Side, Site, Position Yes -Correct Procedure Yes -Procedure Performed Yes -Type of Procedure Debridement -Clinical Debridement Subcutaneous -Tissue Removed Subcutaneous -Post Debridement (cm) - Length 0.7 -Post Debridement (cm) - Width 0.8 -Post Debridement (cm) - Depth 0.1 -Total Square (Post) (cm) 0.56 -Area of Debridement (cm) - Length 0.7 -Area of Debridement (cm) - Width 0.8 -Total Square (Area) (cm) 0.56 -Tunneling No -Undermining/Tunneling No -Circular Undermining No -Wound/Ulcer Outcome Not Healed -Ulcer Cleansing Rinsed/ Irrigated with Saline -Foul Odor after Cleansing No -Bioengineered Tissue No -Bleeding Controlled with Pressure -Treatment Response Procedure Tolerated Well -Debridement - Subq, 1st 20sq cm Yes Pain Scale: 0-10 Numeric Is Patient Pain Free? Yes - Nurse 3 - General Ulcer D/C NN Start: 11/01/24 08:44 Freq: Status: Active Protocol: Activity Type Activity Date Activity User E-sign Co-sign Detail Recorded Client Recorded Date Recorded By Document 11/01/24 09:33 DL [id number] 11/01/24 09:34 DL 11/01/24 09:33 Wound Care Center Nurse 3 #1 Left Lower Leg -Ulcer Cleansing Rinsed/ Irrigated with Saline -Foul Odor after Cleansing No -Primary Dressing Applied NonAdherent Contact Layer, Silicone Border Foam 4x4 -Other Dressing Zeroform -Silicone Border Foam 4x4 1 Left -Tubular Bandage Double Layer -Size of Tubigrip Used Size E -Size E ($) 2 Treatment Response Procedure Tolerated Well Pain Scale: 0-10 Numeric Is Patient Pain Free? 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 lower leg with fat layer exposed PLAN: Wash left leg with antibacterial soap and water apply Xeroform to wound base cover with Adaptic and a foam dressing every day and he can follow-up in 2 weeks (3) Cellulitis of left lower leg: CODE(S): L03.116 - Cellulitis of left lower limb PLAN: Cultures obtained will call with results Start wearing a double layer Tubigrip to the left lower leg (4) Diabetic leg ulcer: CODE(S): E11.622 - Type 2 diabetes mellitus with other skin ulcer; L97.909 - Non-pressure chronic ulcer of unspecified part of unspecified lower leg with unspecified severity PLAN: Start taking vitamin B12 and B6
--- NOTE | 2024-11-01 16:01 | WC ---
PHOTO 11/01/24 INITIAL LEFT LOWER LEG
--- NOTE | 2024-11-06 13:59 | WC ---
WOUND CULTURES REVIEWED PER CHARLENE BARRON GARAGE DOOR TECHNICIAN. N.O. TO START LINEZOLID. PT AND MAHESH BURDEN UPDATED. ALLERGIES REVIEWED. CALLED TO [facility] PER REQUEST.
== END 2024-11-03 23:59 | disposition home or self-care (01) ==
LOC: WC 08:25
PROVIDERS: Visit Provider Nurse Practitioner
DX: E11.622 Type 2 diabetes mellitus with other skin ulcer (principal); L97.822 Non-pressure chronic ulcer of other part of left lower leg with fat layer exposed; E11.40 Type 2 diabetes mellitus with diabetic neuropathy, unspecified; L03.116 Cellulitis of left lower limb; I10 Essential (primary) hypertension; E78.00 Pure hypercholesterolemia, unspecified; R60.0 Localized edema; K21.9 Gastro-esophageal reflux disease without esophagitis; Z79.899 Other long term (current) drug therapy; Z86.718 Personal history of other venous thrombosis and embolism
CPT/HCPCS: 11042; 87070; 87075; 87077; 87186; 87205; 99213; G0463

== ENCOUNTER 2024-11-28 14:00 | Outpatient (RCR) | payer MEDICARE, SELFPAY ==
[2024-11-04 02:50] VITALS: BP 147/72; PULSE 55; RESP 18; TEMP 36.1
[2024-11-07 15:03] VITALS: BP 152/70; PULSE 58; RESP 18; TEMP 35.7
--- NOTE | 2024-11-08 14:18 | WC ---
PHOTO 11/07/24 PREET
[2024-11-14 13:33] VITALS: BP 145/58; PULSE 68; RESP 16; TEMP 36.4
--- NOTE | 2024-11-15 15:41 | PCM.WC.HP ---
History of Present Illness Date of Service: 11/14/24 Chief Complaint: Left lower leg wound History of Wound: The patient's history is as previously documented below: 84-year-old white male who developed an open sore on his left lower leg it has been very tender to touch. 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 He complains of swelling in that leg but does wear a compression stocking per . They went to the emergency room and had a ultrasound done of the leg for DVT and it was negative. [facility] Medical History Malignant neoplasm of trigone of bladder Increase in creatinine UTI (urinary tract infection) Anemia Steppage gait determined by examination Sensory neuropathy Dehydration Encounter for chemotherapy management Diarrhea Dysuria Constipation Fatigue Weight loss Edema of left lower extremity Candidiasis Oral candidiasis Encounter for education Loss of hearing Wears glasses Cancer Alcohol use Diabetes Bladder disease Prostate disease DVT (deep venous thrombosis) High cholesterol Tremor History of hiatal hernia Gastric reflux Non-smoker Neuropathy History of pain when walking History of stress test Hypertension Hx of fracture of ankle Home Medications ?Medication ?Instructions ?Recorded ?Last Taken ?Type finasteride 5 mg tablet 5 mg PO QHS 10/18/13 11/15/23 History nadolol 80 mg tablet (Corgard) 80 mg PO DAILY 09/14/14 11/15/23 History omeprazole 20 mg capsule,delayed 20 mg PO DAILY PRN indigestion 09/14/14 11/15/23 History release tamsulosin 0.4 mg capsule 0.4 mg PO QHS 02/20/19 11/15/23 History cholecalciferol (vitamin D3) 50 50 mcg PO DAILY 09/10/23 11/15/23 History mcg (2,000 unit) capsule (Vitamin D3) rosuvastatin 5 mg tablet 5 mg PO 1200 09/10/23 11/15/23 History topiramate 25 mg tablet 25 mg PO DAILY 09/10/23 11/15/23 History lisinopril 20 mg tablet 40 mg PO DAILY 10/08/23 11/15/23 History lidocaine-prilocaine 2.5 %-2.5 % 1 applic topical ONCE PRN port 11/08/23 11/15/23 Rx topical cream access 30 days #30 grams prochlorperazine maleate 10 mg 10 mg PO Q6H PRN nausea and 11/08/23 Unknown Rx tablet vomiting #30 tabs diaper,brief,adult,disposable (ATN #96 ea 12/06/23 Unknown Rx Brief) potassium chloride 20 mEq 20 meq PO DAILY #14 tabs 01/17/24 Unknown Rx tablet,extended release Allergy/AdvReac Type Severity Reaction Status Date / Time fenofibrate (From Tricor) Allergy Rash Verified 11/08/24 10:04 hydrochlorothiazide Allergy Rash Verified 11/08/24 10:04 niacin Allergy Rash Verified 11/08/24 10:04 tetracycline (Tetracycline) Allergy Hives Verified 11/08/24 10:04 tramadol Allergy Hives Verified 11/08/24 10:04 ciprofloxacin (From Cipro) AdvReac Nausea/Vom/ Verified 11/08/24 10:04 Diarrhea Surgical History History of sinus surgery History of ankle surgery History of transurethral resection of prostate History of tonsillectomy H/O cystoscopy Hx of left cataract extraction Hx of right cataract extraction Hx of esophagogastroduodenoscopy Hx of colonoscopy Hx of total hip arthroplasty Social History household members: spouse Smoking Status: Never smoker substance use type: does not use Physical Exam Const alert, oriented x3, no apparent distress, average body habitus and no limitations Constitutional Narrative: The patient's BMI is 25.6. General Appearance: cooperative, comfortable and well developed Orientation / Consciousness: awake, oriented to person, oriented to place and oriented to time Exam Limitations: no limitations HEENT normocephalic and head/scalp atraumatic Head and Scalp: normal to inspection Face and Sinus: normal facial exam Nose: external nose normal External Ear: external ears normal Eyes EOMs intact bilaterally General Eye: normal appearance of both eyes Neck full ROM General: normal visual inspection Resp normal respiratory effort, normal air movement, no retractions and no use of accessory muscles Effort and Inspection: able to speak in complete sentences Extremity Extremity Narrative: +dressing R anterior low leg. Skin Wound Narrative: An ulceration is noted on the patient's left pretibial surface. Dimensions are documented elsewhere. The ulceration is full-thickness, extending through all layers of the dermis and into the subcutaneous tissues. Ulcer margins are well beveled. Minimal swelling is noted in the left lower extremity. Neuro oriented x3, CN's II-XII intact bilaterally, moves all extremities, no focal motor deficits and no sensory deficits noted Sensorium / Orientation: awake, alert, oriented to person, oriented to place and oriented to time Psych Appearance: grossly normal Speech: normal speech Thought Content: normal thought content Judgement: judgement good Debridement Note Debridement Note Wound debrided: Distal left lower extremity ulceration Laterality: Left Type of Debridement: Excisional debridement Anesthesia Used: 5% Lidocaine Gel and Cetacaine Depth: Down to and including healthy tissue and in the subcutaneous layer Percentage of wound debrided: 100 Instrument Used: 3mm curette Tissue Removed: Bioburden and nonviable tissue Severity: Fat Layer Exposed Amount of bleeding with debridement: Mild Bleeding Controlled with: Compression and gauze Patient tolerated procedure: Patient tolerated procedure well Post-Debridement Measurements and Additional Note: Post-Debridement Measurements/Treatment [facility] Nurse 1 - General Ulcer Assessment Start: 11/07/24 15:02 Freq: Status: Active Protocol: KIKE.LOWCELINET Activity Type Activity Date Activity User E-sign Co-sign Detail Recorded Client Recorded Date Recorded By Document 11/07/24 15:03 RB [id number] 11/07/24 15:04 RB Document 11/14/24 13:33 KW [id number] 11/14/24 13:38 KW 11/07/24 11/14/24 15:03 13:33 - Today's Visit Information Type of service Follow-up Visit Follow-up Visit (Physician/PRORATE CLERK (Physician/PRORATE CLERK ) ) Arrival Mode Ambulatory Ambulatory,Cane Transfer Assistance None Accompanied by Patient Identification Verified (Name & Yes Yes ) Patient Requires Transmission-Based No Precautions Vital Signs Temperature (97.8 F-99.1 F) 96.3 F L 97.5 F L Temperature Source Temporal Temporal Pulse Rate (60-100) 58 L 68 Pulse Location Monitor Monitor Respiratory Rate (12-18) 18 16 Respiratory rate source Observation Observation Oxygen Delivery Method Room Air Blood Pressure (90/60-120/80) 152/70 H 145/58 H Blood Pressure Mean 97 87 Source Monitor Monitor Position Semi-Fowlers Sitting Blood Pressure Location Left Arm Left Arm History Since Last Visit- (Skip if this is Patient's initial visit) Have you changed medications since your No No last visit? Any new allergies or adverse reactions No No Had a fall/change in ADL's that may No No increase risk of falls Signs or symptoms of abuse and/or No No neglect since last visit Have you been in the hospital since your No No last visit? Has dressing in place as prescribed Yes Yes Has compression in place as prescribed Yes Yes Has offloadiing in place as prescribed N/A N/A Experienced any changes in pain level or No No management Left Footwear Regular Shoe Right Footwear Regular Shoe Pain Scale: 0-10 Numeric Is Patient Pain Free? Yes No LLE -Description Sharp -Intensity 3 WC - Nurse 1 - General Ulcer Measurement Start: 11/07/24 15:02 Freq: Status: Active Protocol: Activity Type Activity Date Activity User E-sign Co-sign Detail Recorded Client Recorded Date Recorded By Document 11/07/24 15:03 RB [id number] 11/07/24 15:04 RB Document 11/14/24 13:33 KW [id number] 11/14/24 13:38 KW 11/07/24 11/14/24 15:03 13:33 Wound Center Nurse 1 #1 Left Lower Leg -Combined with other wound No -Current Size (cm) - Length 0.1 0.1 -Current Size (cm) - Width 0.1 0.1 -Current Size (cm) - Depth 0.1 0 -Total Square Cm 0.01 0.01 -Date of Last Picture (Recall this 11/14/24 field) -Photo Taken Yes -Tunneling No -Undermining/Tunneling No -Circular Undermining No -Exudate Amt Small None Present -Exudate Type Serosanguineous -Wound Margin Distinct, Indistinct, Non Outline -Visible Attached -Granulation Amt Medium (34-66%) -Granulation Quality [place] -Slough/Fibrin Yes -Necrosis Amt Medium (34-66%) -Necrotic Tissue Type Adherent Slough -Structure Exposed N/A -Texture (Yudy-wound Skin Appearance) Assessed Assessed -Moisture (Yudy-wound Skin Appearance) Dry/Scaly Assessed -Color (Yudy-wound Skin Appearance) Assessed Assessed, Hemosiderin Staining -Temperature (Yudy-wound Skin No Abnormality No Abnormality Appearance) (Pt Warm) (Pt Warm) -Tenderness on Palpation (Yudy-wound No No Skin Appearance) -Ulcer Cleansing Wound Cleanser Rinsed/ Irrigated with Saline -Foul Odor after Cleansing No No -Anesthetic Used 5% Lidocaine 5% Lidocaine Gel Gel Lower Limb Edema Present Yes Left Calf (cm) 34.5 Left Ankle (cm) 21.8 WC - Nurse 2 - General Ulcer CM Notes Start: 11/07/24 15:02 Freq: Status: Active Protocol: Activity Type Activity Date Activity User E-sign Co-sign Detail Recorded Client Recorded Date Recorded By Document 11/07/24 16:02 DS [id number] 11/07/24 16:07 DS Document 11/14/24 13:54 DS [id number] 11/14/24 13:55 DS 11/07/24 11/14/24 16:02 13:54 Wound Center Nurse 2 #1 Left Lower Leg -Time 16:02 13:53 -Correct Patient Yes Yes -Correct Side, Site, Position Yes Yes -Correct Procedure Yes Yes -Procedure Performed Yes Yes -Type of Procedure Debridement Debridement -Clinical Debridement Subcutaneous Subcutaneous -Tissue Removed Subcutaneous Subcutaneous -Post Debridement (cm) - Length 1.0 0.8 -Post Debridement (cm) - Width 1.5 0.5 -Post Debridement (cm) - Depth 0.1 0.1 -Total Square (Post) (cm) 1.50 0.40 -Area of Debridement (cm) - Length 1.0 0.8 -Area of Debridement (cm) - Width 1.5 0.5 -Total Square (Area) (cm) 1.50 0.40 -Tunneling No No -Undermining/Tunneling No No -Circular Undermining No No -Wound/Ulcer Outcome Not Healed Not Healed -Ulcer Cleansing Rinsed/ Rinsed/ Irrigated with Irrigated with Saline Saline -Foul Odor after Cleansing No No -Bioengineered Tissue No No -Bleeding Controlled with Pressure Pressure -Treatment Response Procedure Procedure Tolerated Well Tolerated Well -Debridement - Subq, 1st 20sq cm Yes Yes Pain Scale: 0-10 Numeric Is Patient Pain Free? Yes Yes - Nurse 3 - General Ulcer D/C NN Start: 11/07/24 15:02 Freq: Status: Active Protocol: Activity Type Activity Date Activity User E-sign Co-sign Detail Recorded Client Recorded Date Recorded By Document 11/07/24 16:23 RB [id number] 11/07/24 16:24 RB Document 03/11/25 14:10 RB [id number] 11/14/24 14:11 RB 11/07/24 11/14/24 16:23 14:10 Wound Care Center Nurse 3 #1 Left Lower Leg -Ulcer Cleansing Rinsed/ Rinsed/ Irrigated with Irrigated with Saline Saline -Primary Dressing Applied Promogran, Promogran, Silicone Border Silicone Border Foam 4x4 Foam 4x4 -Promogran 1 1 -Silicone Border Foam 4x4 1 1 BLE -Tubular Bandage Double Layer -Size of Tubigrip Used Size D -Size D ($) 2 -Stockings Yes: pt own stockings bilat Treatment Response Procedure Procedure Tolerated Well Tolerated Well Pain Scale: 0-10 Numeric Is Patient Pain Free? Yes Yes WC - Visit Discharge Discharge Condition Stable Stable Ambulatory Status Ambulatory Ambulatory Transportation Private Auto Private Auto Medication Reconcilliation completed & No No provided to patient/care provider Clinical Summary of Care Provided Yes Yes Charges/Coding Procedures Integumentary [id number]: [id number] Alexa subq tissue 20 sq cm/< Assessment/Plan Assessment/Plan (1) Nonhealing ulcer of left lower extremity: CODE(S): L97.929 - Non-pressure chronic ulcer of unspecified part of left lower leg with unspecified severity QUALIFIERS: Non-pressure ulcer stage: with fat layer exposed Qualified Code(s): L97.922 - Non-pressure chronic ulcer of unspecified part of left lower leg with fat layer exposed PLAN: Wash left leg with antibacterial soap and water apply Promogran to wound base daily; cover with Adaptic and a foam dressing. (2) Edema of left lower extremity: CODE(S): R60.0 - Localized edema (3) Cellulitis of left lower leg: CODE(S): L03.116 - Cellulitis of left lower limb PLAN: Cultures obtained - remains on Linezolid orally Continues to wear his zippered graduated compression stockings on a daily basis. (4) Diabetic leg ulcer: CODE(S): E11.622 - Type 2 diabetes mellitus with other skin ulcer; L97.909 - Non-pressure chronic ulcer of unspecified part of unspecified lower leg with unspecified severity PLAN: Continue taking vitamin B12 and B6. PLAN: Plan This is an 84-year-old male with an ulceration on his distal left lower extremity. We are to continue the use of Promogran, which will be applied topically by the patient on a daily basis. Adaptic and a foam dressing will also be applied. The patient has been instructed in the appropriate means of application. A discussion has been undertaken with the patient as to the appropriate measures to minimize swelling in his lower extremities. We have discussed leg elevation, which should be to heart level, or higher. Leg elevation should be implemented as much as possible. He has been encouraged to sleep on a flat mattress at night. Prolonged, idle sitting has been discouraged. Ambulation has been encouraged. The patient is to continue using his zippered graduated compression stockings, which are to be donned on a daily basis. The patient remains on linezolid, recently prescribed for a positive culture for Staphylococcus aureus, 3+. He has been instructed to continue the antibiotic until completion. The patient has been advised to optimize his nutritional intake. The patient is to return in 1 week for reevaluation by his established Wound Center provider. Total time: 24 minutes
--- NOTE | 2024-11-16 10:03 | WC ---
PHOTO 11/14/24 PREET
[2024-11-22 09:08] VITALS: BP 120/62; PULSE 64; RESP 18; TEMP 36.3
--- NOTE | 2024-11-22 10:36 | PCM.WC.PN ---
History of Present Illness Date of Service: 11/22/24 Chief Complaint: Left lower leg wound History of Wound: The patient's history is as previously documented below: 84-year-old white male who developed an open sore on his left lower leg it has been very tender to touch. 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 He complains of swelling in that leg but does wear a compression stocking per . They went to the emergency room and had a ultrasound done of the leg for DVT and it was negative. Progress of Wound: Today the wound is healed and patient be discharged from the wound center. He is still to continue wearing the double layer Tubigrip's and follow-up for his leg studies and we will call with the results on that. Subjective Subjective Patient and are very pleased with outcomes Objective Data Objective Data Skin is healed looks good no sign of any redness or open areas or infection or swelling. Vital Signs: Vital Signs Temp Pulse Resp BP O2 Del Method 97.4 F L 64 18 120/62 Room Air 11/22/24 09:08 11/22/24 09:08 11/22/24 09:08 11/22/24 09:08 11/14/24 13:33 Oxygen Delivery Method Room Air Physical Exam Const oriented x3 General Appearance: cooperative Exam Limitations: no limitations HEENT normocephalic Face and Sinus: normal facial exam Eyes General Eye: normal appearance of both eyes Neck full ROM General: normal visual inspection Resp normal respiratory effort Effort and Inspection: able to speak in complete sentences Auscultation: clear to auscultation bilaterally Cardio regular rate and regular rhythm Palpation: normal PMI Rate: regular rate Rhythm: regular rhythm Extremity General Extremity: normal exam except as noted and other findings Other Details: Left lower leg tenderness with an open ulcer and a prominent tender vein superficial ; Negative for no tenderness to palpation of joints or extremities Skin Wounds: wounds noted Wound Narrative: Superficial open wound is close to the ankle but on the left lower leg at the base of a prominent vein. Neuro oriented x3 Psych Appearance: grossly normal Speech: normal speech Thought Content: normal thought content Judgement: judgement good Debridement Note Debridement Note No debridement was completed: No debridement was completed today Post-Debridement Measurements and Additional Note: Post-Debridement Measurements/Treatment WC - Nurse 1 - General Ulcer Assessment Start: 11/07/24 15:02 Freq: Status: Active Protocol: KIKE.CARLOS Activity Type Activity Date Activity User E-sign Co-sign Detail Recorded Client Recorded Date Recorded By Document 11/07/24 15:03 RB [id number] 11/07/24 15:04 RB Document 11/14/24 13:33 KW [id number] 11/14/24 13:38 KW Document 11/22/24 09:08 DL [id number] 11/22/24 09:12 DL 11/07/24 11/14/24 11/22/24 15:03 13:33 09:08 WC - Today's Visit Information Type of service Follow-up Visit Follow-up Visit Follow-up Visit (Physician/SEARCH AND RESCUE OFFICER (Physician/SEARCH AND RESCUE OFFICER (Physician/SEARCH AND RESCUE OFFICER ) ) ) Arrival Mode Ambulatory Ambulatory,Cane Ambulatory,Cane Transfer Assistance None None Accompanied by Patient Identification Verified (Name & Yes Yes Yes ) Patient Requires Transmission-Based No No Precautions Vital Signs Temperature (97.8 F-99.1 F) 96.3 F L 97.5 F L 97.4 F L Temperature Source Temporal Temporal Temporal Pulse Rate (60-100) 58 L 68 64 Pulse Location Monitor Monitor Monitor Respiratory Rate (12-18) 18 16 18 Respiratory rate source Observation Observation Observation Oxygen Delivery Method Room Air Blood Pressure (90/60-120/80) 152/70 H 145/58 H 120/62 Blood Pressure Mean (mm Hg) 97 87 81 Source Monitor Monitor Monitor Position Semi-Fowlers Sitting Blood Pressure Location Left Arm Left Arm History Since Last Visit- (Skip if this is Patient's initial visit) Have you changed medications since your No No No last visit? Any new allergies or adverse reactions No No No Had a fall/change in ADL's that may No No No increase risk of falls Signs or symptoms of abuse and/or No No No neglect since last visit Have you been in the hospital since your No No No last visit? Has dressing in place as prescribed Yes Yes Yes Has compression in place as prescribed Yes Yes Yes Has offloadiing in place as prescribed N/A N/A N/A Experienced any changes in pain level or No No No management Left Footwear Regular Shoe Right Footwear Regular Shoe Pain Scale: 0-10 Numeric Is Patient Pain Free? Yes No Yes LLE -Description Sharp -Intensity 3 WC - Nurse 1 - General Ulcer Measurement Start: 11/07/24 15:02 Freq: Status: Active Protocol: Activity Type Activity Date Activity User E-sign Co-sign Detail Recorded Client Recorded Date Recorded By Document 11/07/24 15:03 RB [id number] 11/07/24 15:04 RB Document 11/14/24 13:33 KW [id number] 11/14/24 13:38 KW Document 11/22/24 09:08 DL [id number] 11/22/24 09:12 DL 11/07/24 11/14/24 11/22/24 15:03 13:33 09:08 Wound Center Nurse 1 #1 Left Lower Leg -Combined with other wound No -Current Size (cm) - Length 0.1 0.1 0.1 -Current Size (cm) - Width 0.1 0.1 0.1 -Current Size (cm) - Depth 0.1 0 0.1 -Total Square Cm 0.01 0.01 0.01 -Date of Last Picture (Recall this 11/14/24 field) -Photo Taken Yes -Tunneling No -Undermining/Tunneling No -Circular Undermining No -Exudate Amt Small None Present Small -Exudate Type Serosanguineous -Wound Margin Distinct, Indistinct, Non Indistinct, Non Outline -Visible -Visible Attached -Granulation Amt Medium (34-66%) Small (1-33%) -Granulation Quality [place] -Slough/Fibrin Yes -Necrosis Amt Medium (34-66%) None Present (0 %) -Necrotic Tissue Type Adherent Slough -Structure Exposed N/A N/A -Texture (Yudy-wound Skin Appearance) Assessed Assessed Scarring -Moisture (Yudy-wound Skin Appearance) Dry/Scaly Assessed No Abnormality -Color (Yudy-wound Skin Appearance) Assessed Assessed, Hemosiderin Hemosiderin Staining Staining -Temperature (Yudy-wound Skin No Abnormality No Abnormality No Abnormality Appearance) (Pt Warm) (Pt Warm) (Pt Warm) -Tenderness on Palpation (Yudy-wound No No No Skin Appearance) -Ulcer Cleansing Wound Cleanser Rinsed/ Rinsed/ Irrigated with Irrigated with Saline Saline -Foul Odor after Cleansing No No No -Anesthetic Used 5% Lidocaine 5% Lidocaine 5% Lidocaine Gel Gel Gel Lower Limb Edema Present Yes Left Calf (cm) 34.5 34 Left Ankle (cm) 21.8 22 WC - Nurse 2 - General Ulcer CM Notes Start: 11/07/24 15:02 Freq: Status: Active Protocol: Activity Type Activity Date Activity User E-sign Co-sign Detail Recorded Client Recorded Date Recorded By Document 11/07/24 16:02 DS [id number] 11/07/24 16:07 DS Document 11/14/24 13:54 DS [id number] 11/14/24 13:55 DS Document 11/22/24 09:21 BMF [id number] 11/22/24 09:25 BMF 11/07/24 11/14/24 11/22/24 16:02 13:54 09:21 Wound Center Nurse 2 #1 Left Lower Leg -Time 16:02 13:53 09:23 -Correct Patient Yes Yes -Correct Side, Site, Position Yes Yes -Correct Procedure Yes Yes -Procedure Performed Yes Yes No -Type of Procedure Debridement Debridement -Clinical Debridement Subcutaneous Subcutaneous -Tissue Removed Subcutaneous Subcutaneous -Post Debridement (cm) - Length 1.0 0.8 0 -Post Debridement (cm) - Width 1.5 0.5 0 -Post Debridement (cm) - Depth 0.1 0.1 0 -Total Square (Post) (cm) 1.50 0.40 0 -Area of Debridement (cm) - Length 1.0 0.8 0 -Area of Debridement (cm) - Width 1.5 0.5 0 -Total Square (Area) (cm) 1.50 0.40 0 -Tunneling No No No -Undermining/Tunneling No No No -Circular Undermining No No No -Wound/Ulcer Outcome Not Healed Not Healed Healed- Epithelialized -Ulcer Cleansing Rinsed/ Rinsed/ Irrigated with Irrigated with Saline Saline -Foul Odor after Cleansing No No -Bioengineered Tissue No No -Bleeding Controlled with Pressure Pressure Pressure -Treatment Response Procedure Procedure Procedure Tolerated Well Tolerated Well Tolerated Well -Debridement - Subq, 1st 20sq cm Yes Yes Pain Scale: 0-10 Numeric Is Patient Pain Free? Yes Yes Yes - Nurse 3 - General Ulcer D/C NN Start: 11/07/24 15:02 Freq: Status: Active Protocol: Activity Type Activity Date Activity User E-sign Co-sign Detail Recorded Client Recorded Date Recorded By Document 11/07/24 16:23 RB [id number] 11/07/24 16:24 RB Document 03/11/25 14:10 RB [id number] 11/14/24 14:11 RB Document 11/22/24 09:41 RB [id number] 11/22/24 09:42 RB 11/07/24 11/14/24 11/22/24 16:23 14:10 09:41 Wound Care Center Nurse 3 #1 Left Lower Leg -Ulcer Cleansing Rinsed/ Rinsed/ Irrigated with Irrigated with Saline Saline -Primary Dressing Applied Promogran, Promogran, Silicone Border Silicone Border Foam 4x4 Foam 4x4 -Promogran 1 1 -Silicone Border Foam 4x4 1 1 -Wound Comment(s) healed photo taken BLE -Tubular Bandage Double Layer -Size of Tubigrip Used Size D -Size D ($) 2 -Stockings Yes: pt own Yes: pt own stockings bilat stockings Treatment Response Procedure Procedure Procedure Tolerated Well Tolerated Well Tolerated Well Pain Scale: 0-10 Numeric Is Patient Pain Free? Yes Yes Yes WC - Visit Discharge Discharge Condition Stable Stable Stable Ambulatory Status Ambulatory Ambulatory Ambulatory Transportation Private Auto Private Auto Private Auto Accompanied by Medication Reconcilliation completed & No No No provided to patient/care provider Clinical Summary of Care Provided Yes Yes Yes Assessment/Plan Assessment/Plan (1) Edema of left lower extremity: CODE(S): R60.0 - Localized edema PLAN: Continue wearing the Tubigrip's double layer to the legs till the studies are done and we decide if he needs to be seen by Dr. Shaw otherwise patient is discharged from the wound center (2) Nonhealing ulcer of left lower extremity: CODE(S): L97.929 - Non-pressure chronic ulcer of unspecified part of left lower leg with unspecified severity QUALIFIERS: Non-pressure ulcer stage: with fat layer exposed Qualified Code(s): L97.922 - Non-pressure chronic ulcer of unspecified part of left lower leg with fat layer exposed (3) Cellulitis of left lower leg: CODE(S): L03.116 - Cellulitis of left lower limb PLAN: C (4) Diabetic leg ulcer: CODE(S): E11.622 - Type 2 diabetes mellitus with other skin ulcer; L97.909 - Non-pressure chronic ulcer of unspecified part of unspecified lower leg with unspecified severity PLAN: Start taking vitamin B12 and B6
--- NOTE | 2024-11-23 08:49 | WC ---
PHOTO 11/22/24 PREET(H)
--- NOTE | 2024-11-28 13:44 | ART_ITS ---
Reason For Study Reason For Study: EDEMA / LLE Wound Procedure A bilateral lower extremity continuous wave Doppler with analog waveform analysis,segmental pressures,and ankle brachial indexes without exercise. Left Segmental Pressures Left brachial= 132mmHg. Left posterior tibial artery = 161mmHg. Left dorsalis pedis artery = 135mmHg. Left digit = 95 mmHg. The left posterior tibial artery waveforms are triphasic. The left dorsalis pedis waveforms are biphasic. Right Segmental Pressures Right brachial= 131mmHg. Right posterior tibial artery = 154mmHg. Right dorsalis pedis artery = 170mmHg. Right digit = 140 mmHg. The right posterior tibial artery waveforms are triphasic. The right dorsalis pedis waveforms are biphasic. Indices The right ankle brachial index by the posterior tibial artery is 1.17. The right ankle brachial index by the dorsalis pedis is 1.29. The right digital-brachial index is 1.06. The left ankle brachial index by the posterior tibial artery is 1.22. The left ankle brachial index by the dorsalis pedis is 1.02. The left digital-brachial index is 0.72. VL/Lower Ext Art Exam w/o Exercis Interpretation Summary Triphasic and biphasic Doppler waveforms are noted at ankle level bilaterally. Pulse-volume recordings appear satisfactory at all levels bilaterally. Resting ankle-brachial indices are norm al bilaterally. Digital-brachial indices are normal bilaterally. There is no evidence of significant arterial occlusive disease in the lower ext remities bilaterally. Ordering Physician: Tracey Palafox Referring Physician: Zoie Whitt Performed By: Baldemar Cooper RVT
--- NOTE | 2024-11-28 13:44 | VDLE_ITS ---
Reason For Study Reason For Study: LLE Wound / Swelling RIGHT LEFT GSV is normal. GSV is normal. CFV is compressible, spontaneous, phasic, competent CFV is compressible, spontaneous, phasic, competent, and demonstrates normal augmentation. and demonstrates normal augmentation. FV is compressible, spontaneous, phasic, competent FV - POP V - T/P Trunk appear PARTIALLY COMPRESSIBLE and demonstrates normal augmentation. with web-like intraluminal echoes. Finding is POP V is compressible, spontaneous, phasic, competent consistent with CHRONIC DVT. and demonstrates normal augmentation. FV and POP V show Reflux greater than one second with T/P Trunk is compressible. augmentation. PTV is compressible. PTV is compressible. RT PerV is compressible. LT PerV is compressible. SFJ is competent and measures 0.49 cm. SFJ is INCOMPETENT and measures 0.47 cm. GSV proximal thigh measures 0.31 x 0.34 cm. GSV proximal thigh measures 0.38 x 0.40 cm. GSV at knee measures 0.39 x 0.41 cm. GSV at knee measures 0.43 x 0.46 cm. GSV is competent throughout. GSV is competent throughout. ASV mid calf is INCOMPETENT for greater than 0.5 SSV mid calf is competent and measures 0.36 x 0.41 seconds and measures 0.28 x 0.42 cm. cm. SSV mid calf is INCOMPETENT for greater than 0.5 seconds and measures 0.20 x 0.22 cm. Procedure This is a venous duplex using B-mode, color flow and spectral Doppler. Exam performed in department. The exam was diagnostic. VL/Venous Duplex US - Jerman Extrem Interpretation Summary Deep veins of the right lower extremity are patent and compressible segmentally . There is no evidence of right lower extremity deep vein thrombosis. Valvular competence appears intact within the p roximal deep venous system on the right . Chronic venous changes are noted in the left femoral vein, popliteal vein, and tibio-peroneal trunk, which are partially compressible and demonstrate intraluminal echogenicity. The remainder of the le ft lower extremity deep venous system is patent and compressible. The left femoral vein and popliteal vein are incompete nt. The great saphenous veins appear bilaterally patent and compressible segmentally. The right sapheno-femoral junc tion is competent . The left sapheno- femoral junction is incompetent . Valvular competence appears to be intact segm entally within the great saphenous veins bilaterally. The right small saphenous vein is patent and incompetent. The left small saphenous vein is patent and competent. The accessory saphenous vein in the right mid-calf is incompetent. Ordering Physician: Tracey Palafox Referring Physician: Zoie Whitt Performed By: Baldemar Cooper RVT
== END 2024-12-04 16:18 | disposition home or self-care (01) ==
LOC: CVS 14:00
PROVIDERS: Visit Provider Nurse Practitioner
DX: E11.622 Type 2 diabetes mellitus with other skin ulcer (principal); L97.222 Non-pressure chronic ulcer of left calf with fat layer exposed; E11.40 Type 2 diabetes mellitus with diabetic neuropathy, unspecified; I10 Essential (primary) hypertension; K21.9 Gastro-esophageal reflux disease without esophagitis; E78.00 Pure hypercholesterolemia, unspecified; Z86.718 Personal history of other venous thrombosis and embolism; M79.89 Other specified soft tissue disorders; R60.0 Localized edema; L03.116 Cellulitis of left lower limb; Z79.899 Other long term (current) drug therapy; M79.662 Pain in left lower leg
CPT/HCPCS: 11042; 93923; 93970; 99212; 99213; G0463

== ENCOUNTER → 2025-01-23 | Outpatient (CLI) | payer MEDICARE, SELFPAY ==
--- NOTE | 2025-01-23 11:09 | FLU_PTH ---
PATIENT: ANITA TREJO LOC: [facility] U#:[id number] AGE/SX: 84/M ROOM: RE01/23/[address]: Dr. Marques Elias MD : 1940 BED: DIS: 01/23/2025 SPEC #: [id number] RECD: 01/23/25 15:00 STATUS: ROLANDO REQ #: [id number] ANGELICA: 01/23/25 11:[address]: Marques Elias DEPT: CYTOLOGY RECD BY: Teja Cole ENTERED: 01/24/25 08:50 SP TYPE: Fluid OTHR DR: Dr. Zoie Whitt, DO Tissues: A - Urine Procedures: Special Stain Group II Surgery Specimen Level IV Cytospin Fluid HEADER OPERATION: Not noted PRE-OP DIAGNOSIS: Malignant neoplasm of bladder, unspecified TISSUE SUBMITTED: A- Urine for cytology - voided DIAGNOSIS CYTOLOGY A. Urine (cytospin): * Atypical cells present. CYTOLOGY STUDY Slides are reviewed. CYTOLOGY GROSS A. Received is 10 ml of yellow-cloudy fluid labeled with the patient's name and and designated per the requisition as urine. Submitted for cytology preparation. 01/24/2025 CPT: 10006
[2025-01-23 16:14] LABS: Cytology, Body Fluid / CSF SEE PATHOLOGY REPORT
== END | disposition home or self-care (01) ==
LOC: LABSPEC 15:44
PROVIDERS: Referring Provider Urology; Visit Provider Urology
DX: C67.9 Malignant neoplasm of bladder, unspecified (principal)
CPT/HCPCS: 88108; 88305; 88313

== ENCOUNTER → 2025-05-03 | Outpatient (CLI) | payer MEDICARE, SELFPAY ==
--- NOTE | 2025-05-03 14:00 | CT_ITS ---
PROCEDURE: ABDOMEN/PELVIS W IV CONT ONLY 05/03/2025 REASON FOR EXAM: BLADDER CA TECHNIQUE: ABDOMEN/PELVIS W IV CONT ONLY Coronal and Sagittal reconstruction series were provided. CONTRAST: Isovue 370 VOLUME: 100 mL One or more dose reduction techniques were used (e.g., Automated exposure control, adjustment of the mA and/or kV according to patient size, use of iterative reconstruction technique. RADIATION DOSE SUMMARY: CTDlvol: 14.5 mGy DLP: 1456.84 mGycm COMPARISON: Prior study dated January 11, 2024. FINDINGS: Lung bases: Mild increased linear markings at the right lung base suggestive of mild linear scarring and/or atelectasis. Coronary artery calcification. Liver: Normal size. No mass. Gallbladder: Multiple gallstones. Spleen: Normal size. Pancreas: Diffuse fatty atrophy. Adrenals: Unremarkable Kidneys: Small cysts in the left kidney. Fullness of the right renal pelvis although no rain hydronephrosis is seen. Bladder: The urinary bladder is distended. Mild degree of diffuse bladder wall thickening. There is prosthetic enlargement with the indentation at the bladder base. The prostate measures 6.3 cm by 4.3 cm. This causes indentation of the bladder base. Bowel: Moderate amount of fecal material is seen in the colon. Appendix: Unremarkable Lymph nodes: Unremarkable. Vasculature: Mild diffuse atherosclerotic calcifications are noted. Peritoneum / Retroperitoneum: Small right inguinal hernia containing fat. Bones: Degenerative changes of the spine. Grade 1 anterior listhesis of L5 on S1 due to spondylolysis of the pars interarticularis of the L5 vertebrae. Status post right total hip replacement. CT/Abdomen/Pelvis W IV Cont ONLY IMPRESSION: Multiple gallstones. Fullness of the right renal pelvis. Stable left renal cyst. Prostatic enlargement with indentation of the bladder base. Mild degree of diffuse bladder wall thickening. Reading Location: [facility]
[2025-05-03] MEDS: 0.9% Saline Lock 10 ML Syringe IV (14:08)
[2025-05-03 14:16] LABS: CREATININE FINGERSTICK 1.1 mg/dL (0.70-1.30); EGFR FINGERSTICK > 60.0000 mL/min (>60)
== END | disposition home or self-care (01) ==
LOC: CT 13:51
PROVIDERS: Referring Provider Internal Medicine Medical Oncology; Visit Provider Internal Medicine Medical Oncology
DX: Z01.812 Encounter for preprocedural laboratory examination (principal); C67.0 Malignant neoplasm of trigone of bladder
CPT/HCPCS: 74177; Q9967; A4216

== ENCOUNTER 2025-05-10 15:26 | Outpatient (RCR) | payer MEDICARE, SELFPAY | END 2025-06-05 23:59 | LOC: NS 15:26 | PROVIDERS: Visit Provider Internal Medicine Medical Oncology | DX: Z71.3 Dietary counseling and surveillance (principal); C67.0 Malignant neoplasm of trigone of bladder; D64.9 Anemia, unspecified ==